=== PATIENT | male | born 1930 | race Caucasian/White ===

== ENCOUNTER → 2017-05-09 | Outpatient (CLI) | payer OTHER ==
[~2017-05-09] MED LIST: ASPI1TAB PO; COLA100C5 PO; DULC5TAB PO; FERR1TAB8 PO; FURO40TA2 PO; GARL500C5 PO; GLUC500T53 PO; LISI-542 PO; MIDO5TA PO; MIRA3350 PO; PANT40TA2 PO; SIMV20TA2 PO; SPIR25TA2 PO; VITA500T PO; VITMTA PO; XARE10TA PO
--- NOTE | 2017-05-09 11:46 | REP ---
CHEST, TWO VIEWS: HISTORY: Shortness of breath. COMPARISON: 05/01/2017. Patchy density is present in the lower lobes consistent with bibasilar infiltrates unchanged compared to the previous study. A small right pleural effusion is present unchanged compared to the previous study. The cardiac silhouette is enlarged. The pulmonary vasculature is normal in appearance. The bony structure is intact. IMPRESSION: 1. Bibasilar infiltrates unchanged compared to the previous study. 2. Small right pleural effusion unchanged compared to the previous study. Signed by Rashaad Hoff MD 05/09/2017 11:48 A
[2017-05-09 18:07] LABS: CALCIUM LEVEL 8.6 MG/DL (8.8-10.2); CREATININE FOR GFR 3.52 MG/DL (0.70-1.30); GLOMERULAR FILTRATION RATE 17.7 (>35); POTASSIUM SERUM 4.2 MEQ/L (3.5-5.1)
[2017-05-09 18:35] LABS: ADD MANUAL DIFFER YES; MEAN CORPUSCULAR HEMOGLOBIN 25.5 pg (27.0-33.0); MEAN CORPUSCULAR HGB CONC 29.7 g/dl (32.0-36.5); MEAN CORPUSCULAR VOLUME 85.9 fl (80.0-96.0); PLATELET COUNT, AUTOMATED 237 k/mm3 (150-450); RED CELL DISTRIBUTION WIDTH 17.6 % (11.5-14.5); WHITE BLOOD COUNT 6.5 K/mm3 (4.0-10.0)
[2017-05-09 22:06] LABS: EOSINOPHILS 2 % (0-5)
[2017-05-09 22:10] LABS: ANISOCYTOSIS 2+; HYPOCHROMASIA 1+; POLYCHROMASIA 1+; SCHISTOCYTES 1+; TARGET CELLS 1+
== END ==
LOC: M WUC 10:53
PROVIDERS: ATTEND Nurse Practitioner Family
DX: R06.02 Shortness of breath (principal); D64.9 Anemia, unspecified

== ENCOUNTER 2017-05-10 12:41 | Inpatient (IN) | payer OTHER ==
[~2017-05-10] VITALS: Ht 175.3 cm; Wt 80.4 kg
[2017-05-10] MEDS ORDERED: SIMV20TA2 PO (12:53)
[2017-05-10] MEDS ORDERED: LISI-542 PO (12:53)
[2017-05-10] MEDS ORDERED: XARE10TA PO (12:53)
[2017-05-10] MEDS ORDERED: FURO40TA2 PO (12:53)
[2017-05-10] MEDS ORDERED: PANT40TA2 PO (12:53)
[2017-05-10] MEDS ORDERED: SPIR25TA2 PO (12:53)
[2017-05-10 14:27] LABS: BASO % 0.4 % (0.0-1.0); EOS % 0.8 % (0.0-3.0); LARGE UNSTAINED CELL # 0.2 K/mm3 (0.0-0.4); LARGE UNSTAINED CELL % 3.8 % (0.0-4.0); LYMPH # 0.6 K/mm3 (1.5-4.5); LYMPH % 11.2 % (24.0-44.0); MEAN CORPUSCULAR HEMOGLOBIN 26.5 pg (27.0-33.0); MEAN CORPUSCULAR VOLUME 82.8 fl (80.0-96.0); MONO # 0.5 K/mm3 (0.0-0.8); MONO % 8.4 % (0.0-5.0); NEUTROPHILS % 75.4 % (36.0-66.0); PLATELET COUNT, AUTOMATED 195 k/mm3 (150-450); RED CELL DISTRIBUTION WIDTH 17.8 % (11.5-14.5); WHITE BLOOD COUNT 5.3 K/mm3 (4.0-10.0)
[2017-05-10 14:33] LABS: INR 2.48
[2017-05-10 14:40] LABS: ALBUMIN 2.9 GM/DL (3.2-5.2); ALBUMIN/GLOBULIN RATIO 0.74 (1.00-1.93); BILIRUBIN,DIRECT 0.6 MG/DL (0.0-0.2); BILIRUBIN,TOTAL 1.2 MG/DL (0.2-1.0); CALCIUM LEVEL 8.9 MG/DL (8.8-10.2); CREATININE FOR GFR 3.67 MG/DL (0.70-1.30); GLOMERULAR FILTRATION RATE 16.9 (>35); POTASSIUM SERUM 4.7 MEQ/L (3.5-5.1); TOTAL PROTEIN 6.8 GM/DL (6.4-8.2)
--- NOTE | 2017-05-10 15:12 | REP ---
Chest x-ray: Two views. History: Weakness. Comparison study May 09, 2017. Findings: The patient is status post prior median sternotomy. Cardiomegaly is again observed, unchanged. There is evidence of right pleural effusion. Pulmonary vasculature is indistinct and somewhat congested. Interstitial markings are a little prominent. Impression: CHF pattern with small right effusion and some interstitial edema and vascular congestion suspected. Signed by Antony Atkins MD 05/10/2017 06:21 P
[2017-05-10] MEDS ORDERED: ASPI1TAB PO (15:31)
[2017-05-10] MEDS ORDERED: GLUC500T53 PO (15:31)
[2017-05-10] MEDS ORDERED: VITMTA PO (15:31)
[2017-05-10] MEDS ORDERED: GARL500C5 PO (15:31)
--- NOTE | 2017-05-10 15:52 | HPEPDOC ---
Medical History and Physical Date of Admission 05/10/17 History and Physical ATTENDING: Dr. Campos PCP: Dr Phillips Mba Intern. Dr Gross. CC: weakness. Was referred to ED as per PCP for abnormal labs. HPI: 86 yo M with a past medical history significant for CAD, CABG, CHF, hypertension, chronic atrial fibrillation on Xarelto who states he has been feeling more weak recently. He was seen by his PCP yesterday and called this morning and referred to the emergency Department related to abnormal labs. He also reports in the past week his diuretics have been adjusted related to increased lower extremity edema. The patient states that he was taking Lasix 20 mg and torsemide 20 mg daily. He states he does not notice any improvement in his edema. Otherwise he states he has been feeling well. He denies any hematuria , melena, hematochezia. Denies any fevers, chills, weakness, fatigue, BALLESTEROS, CP, SOB, cough, palpitations, abdominal pain, N/V/D or changes in bowel or bladder habits. Upon presentation to the hospital the patient was found to have GI bleeding/ anemia, thus the hospitalist team was consulted. PMHx: CAD/CABG/valve surgery CHF. per pt TTE previously at Cardiology. 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 Children: Alive, well Unexpected deaths due to medical reasons: None. ROS: As noted in HPI, otherwise 11pt ROS of systems reviewed and unremarkable. PE: GEN: 86 yo M, appears stated age. Well-nourished, well developed. No acute distress. Alert and oriented x 3. Pleasant, interactive. HEENT: Normocephalic, atraumatic. Pupils are equal, round, and reactive to light. Extraocular movements are intact. No nystagmus appreciated. Sclera are nonicteric. Conjunctiva without injection. Nose midline. Nasal turbinates without bogginess. EACs both patent BL. TMs both visualized and george with good cone of light, no bulging or erythema. No facial asymmetry. Moist mucous membranes. Dentition fair. Pharynx pink and moist, no cobblestoning. Neck supple , trachea midline. No lymphadenopathy or thyromegaly appreciated. CHEST: Regular rate and rhythm, +S1, +S2 LUNGS: Clear to auscultation bilaterally. No wheezes, rales, or rhonchi. Breathing appears symmetric and easy. Patient is speaking in full sentences. No accessory muscle use. ABD: Round, soft, non-tender, non-distended. +Bowel sounds throughout. No rebound or guarding. No costovertebral angle tenderness. EXT: 2 mm of ankle/pretibial edema noted bilaterally. SKIN: [place], dry, warm. Capillary refill <2sec. No rashes. NEURO: Alert and oriented x 3. Cranial nerves III-XII are intact. No focal deficits appreciated. CXR: CHF pattern with small right effusion and some interstitial edema and vascular congestion suspected. EKG: Atrial fibrillation, 64 bpm, RVH, ST-T wave abnormality. UA pending BNP 807 Stool OB pos in ED A&P: 86 yo M with a past medical history significant for CAD, CABG, CHF, hypertension, chronic atrial fibrillation on Xarelto who states he has been feeling more weak recently. He was seen by his PCP yesterday and called this morning and referred to the emergency Department related to abnormal labs. 1. The patient will be admitted to PCU for at least [address] Campos 's service. Patient is discussed with Dr. Carlisle. Anemia/GI bleeding. Consent for blood products is on chart. PRBC 2 units ordered in ED. Monitor CBC every 8. Patient states he has not previously had any scoping procedures. Depending on status/ability to maintain stable Hgb possibly consider outpt colonoscopy vs inpt Surgical Clt/scope. Clear liquids for now. 2. CHF/history of edema lower extremities. BNP is noted to be 807. Chest x-ray as noted above. IV Lasix ordered between units PRBC. Monitor. I/O. Daily wt. 3. ARF on CKD3. Serum creatinine is noted to be 3.67. Baseline is noted to be 1.3-1.4. Hold ACEI, Hold PO diuretics for now. 4. CAD/CABG/history of valve surgery. No other additional information is available at this time. Requested copy of records of [facility] including TTE. Continue statin. ASA on hold. Serial CIP/troponin. 5. Chronic atrial fibrillation. Temporarily hold Xarelto. Rate controlled. 6. Hypertension. Hold lisinopril. BP is noted to be 114/54. 7. GERD. Continue Protonix. 8. Hyperlipidemia. Continue Zocor. DVT prophylaxis. SCD/TEDS The patient is a full code. Vital Signs Vital Signs Date Time Temp Pulse Resp B/P (MAP) Pulse Ox O2 Delivery O2 Flow Rate FiO2 05/10/17 12:46 98.0 64 18 114/54 (74) 91 Room Air Laboratory Data Labs 24H Laboratory Tests 2 05/10/17 14:12: White Blood Count 5.3, Red Blood Count 3.13L, Hemoglobin 8.3L, Hematocrit 26.0L , Mean Corpuscular Volume 82.8, Mean Corpuscular Hemoglobin 26.5L, Mean Corpuscular Hemoglobin Concent 32.0, Red Cell Distribution Width 17.8H, Platelet Count 195, Neutrophils (%) (Auto) 75.4H, Lymphocytes (%) (Auto) 11.2L, Monocytes (%) (Auto) 8.4H, Eosinophils (%) (Auto) 0.8, Basophils (%) (Auto) 0.4 , Neutrophils # (Auto) 4.0, Lymphocytes # (Auto) 0.6L, Monocytes # (Auto) 0.5, Eosinophils # (Auto) 0.0, Basophils # (Auto) 0.0, Large Unclassified Cells % 3.8 , Large Unclassified Cells # 0.2, Prothrombin Time 27.8H, Prothromb Time International Ratio 2.48, Anion Gap 8, Glomerular Filtration Rate 16.9L, Calcium Level 8.9, Aspartate Amino Transf (AST/SGOT) 24, Alanine Aminotransferase (ALT/SGPT) 14, Alkaline Phosphatase 111, Total Bilirubin 1.2H, Direct Bilirubin 0.6H, Total Creatine Kinase 62, Creatine Kinase MB 2.1, Creatine Kinase MB Relative Index 3.38, Troponin I 0.04, B-Type Natriuretic Peptide 807H, Total Protein 6.8, Albumin 2.9L, Albumin/Globulin Ratio 0.74L, Thyroid Stimulating Hormone (TSH) 0.980 CBC/BMP Laboratory Tests 05/10/17 14:12 Red Blood Count 3.13 L, Mean Corpuscular Volume 82.8, Mean Corpuscular Hemoglobin 26.5 L, Mean Corpuscular Hemoglobin Concent 32.0, Red Cell Distribution Width 17.8 H, Neutrophils (%) (Auto) 75.4 H, Lymphocytes (%) (Auto ) 11.2 L, Monocytes (%) (Auto) 8.4 H, Eosinophils (%) (Auto) 0.8, Basophils (%) (Auto) 0.4, Neutrophils # (Auto) 4.0, Lymphocytes # (Auto) 0.6 L, Monocytes # ( Auto) 0.5, Eosinophils # (Auto) 0.0, Basophils # (Auto) 0.0 Home Medications Scheduled Aspirin (Aspirin 81) 81 Mg Tab, 81 MG PO DAILY Furosemide (Furosemide) 40 Mg Tab, 40 MG PO DAILY Garlic (Garlic) 500 Mg Cap, 500 MG PO DAILY Glucosamine Hydrochloride (Glucosamine) 500 Mg Tab, 500 MG PO DAILY Lisinopril (Lisinopril) 5 Mg Tab, 5 MG PO DAILY Multivitamins *[facility] STOCKED* (Thera M Plus *[facility] STOCKED*) 1 Tab Tab, 1 TAB PO DAILY Pantoprazole Sodium (Pantoprazole Sodium) 40 Mg Tab, 40 MG PO DAILY Rivaroxaban (Xarelto) 10 Mg Tab, 10 MG PO QHS Simvastatin (Simvastatin) 20 Mg Tab, 20 MG PO QHS Spironolactone (Spironolactone) 25 Mg Tab, 12.5 MG PO DAILY Allergies Coded Allergies: No Known Allergies (Unverified , 05/10/17) Nancy Reyes May 10, 2017 15:52
[2017-05-10 16:25] LABS: RETIC HEMOGLOBIN CONTENT CHr 25.3 PG (24-36); RETICULOCYTE ABSOLUTE ADVIA212 79 x10(9)/L (17-77)
[2017-05-10 16:27] LABS: REASON FOR REVIEW COMPREHENSIVE REVIEW
[2017-05-10 16:35] LABS: PERCENT SATURATION 9.2 % (19.7-37.4)
[2017-05-10] MEDS ORDERED: FUROSEMIDE 20 MG/2 ML VIAL (J1940) IV ONE (17:00)
[2017-05-10 21:20] VITALS: BP 117/67
[2017-05-10 21:45] LABS: MEAN CORPUSCULAR HEMOGLOBIN 26.9 pg (27.0-33.0); MEAN CORPUSCULAR HGB CONC 31.8 g/dl (32.0-36.5); MEAN CORPUSCULAR VOLUME 84.7 fl (80.0-96.0); RED CELL DISTRIBUTION WIDTH 17.5 % (11.5-14.5); WHITE BLOOD COUNT 6.4 K/mm3 (4.0-10.0)
--- NOTE | 2017-05-10 21:58 | ECGEPIP ---
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
[2017-05-10] MEDS: SIMVASTATIN 20 MG TAB PO SCH (22:15)
[2017-05-10] MEDS ORDERED: SLF 3 ML SYR IV PRN (22:15)
[2017-05-10] MEDS: SLF 3 ML SYR IV SCH (22:15)
[2017-05-10 23:59] VITALS: BP 130/69
[2017-05-11] VITALS (7 sets, daily range): BP systolic 88–124; BP diastolic 52–82
[2017-05-11 03:01] LABS: MEAN CORPUSCULAR HEMOGLOBIN 26.2 pg (27.0-33.0); MEAN CORPUSCULAR HGB CONC 30.7 g/dl (32.0-36.5); MEAN CORPUSCULAR VOLUME 85.1 fl (80.0-96.0); RED CELL DISTRIBUTION WIDTH 17.5 % (11.5-14.5); WHITE BLOOD COUNT 6.9 K/mm3 (4.0-10.0)
[2017-05-11 03:25] LABS: ALBUMIN 2.9 GM/DL (3.2-5.2); ALBUMIN/GLOBULIN RATIO 0.69 (1.00-1.93); BILIRUBIN,TOTAL 2.4 MG/DL (0.2-1.0); CALCIUM LEVEL 8.8 MG/DL (8.8-10.2); CREATININE FOR GFR 3.21 MG/DL (0.70-1.30); GLOMERULAR FILTRATION RATE 19.7 (>35); POTASSIUM SERUM 4.4 MEQ/L (3.5-5.1); TOTAL PROTEIN 7.1 GM/DL (6.4-8.2)
--- NOTE | 2017-05-11 09:08 | REP ---
Urinary tract sonography: History: Acute on chronic kidney disease. Findings: Scanning at the level of the urinary bladder shows that it is largely obscured by abdominal gas and only partially filled. Renal cortical echogenicity pattern is normal and renal contours are smooth. The right kidney measures 11.2 x 4.9 x 5.0 cm. Left renal dimensions are 11.1 x 6.5 x 6.2 cm. There is a peripheral cyst projecting from the lower pole of the left kidney measuring 2.3 x 3.0 x 2.7 cm. A small septated cyst is seen in the lower pole of the right kidney measuring 1.1 x 1.4 x 1.7 cm. No mass or hydronephrosis is seen on either side. No calculus is observed. Impression: There is a small cyst in each kidney. No other morphologic abnormality. Signed by Antony Atkins MD 05/11/2017 09:34 A
--- NOTE | 2017-05-11 09:49 | REP ---
CHEST X-RAY: Two views. HISTORY: Congestive heart failure. COMPARISON STUDY: May 10, 2017. FINDINGS: EKG monitoring electrodes overlie the chest. The patient is status post median sternotomy and right heart valve replacement. Small right pleural effusion is again noted essentially unchanged from yesterday's radiograph. Pulmonary vasculature remains congested and cephalized. No new infiltrate. IMPRESSION: Findings essentially unchanged with right pleural effusion and cardiomegaly and cephalization consistent with some degree of CHF. Signed by Antony Atkins MD 05/11/2017 10:19 A
[2017-05-11] MEDS ORDERED: FUROSEMIDE 40 MG/4 ML VIAL (J1940) IV ONE (10:00)
[2017-05-11] MEDS: PANTOPRAZOLE 40MG TAB (PROTONIX) PO SCH (10:04)
[2017-05-11 10:27] LABS: MEAN CORPUSCULAR HEMOGLOBIN 26.9 pg (27.0-33.0); MEAN CORPUSCULAR HGB CONC 31.3 g/dl (32.0-36.5); MEAN CORPUSCULAR VOLUME 85.9 fl (80.0-96.0); RED CELL DISTRIBUTION WIDTH 17.7 % (11.5-14.5); WHITE BLOOD COUNT 6.9 K/mm3 (4.0-10.0)
[2017-05-11 14:59] LABS: MEAN CORPUSCULAR HGB CONC 31.6 g/dl (32.0-36.5); MEAN CORPUSCULAR VOLUME 85.4 fl (80.0-96.0); RED CELL DISTRIBUTION WIDTH 17.8 % (11.5-14.5); WHITE BLOOD COUNT 6.6 K/mm3 (4.0-10.0)
[2017-05-11] MEDS: SLF 3 ML SYR IV SCH ×2 (16:12→21:03)
[2017-05-11 20:13] LABS: MEAN CORPUSCULAR HEMOGLOBIN 26.8 pg (27.0-33.0); MEAN CORPUSCULAR HGB CONC 31.5 g/dl (32.0-36.5); MEAN CORPUSCULAR VOLUME 85.3 fl (80.0-96.0); RED CELL DISTRIBUTION WIDTH 17.9 % (11.5-14.5); WHITE BLOOD COUNT 6.6 K/mm3 (4.0-10.0)
[2017-05-11] MEDS: SIMVASTATIN 20 MG TAB PO SCH (21:03)
--- NOTE | 2017-05-11 21:24 | IPN ---
DATE: 05/11/2017 Patient is seen and examined at the bedside. Chart has been reviewed. Overnight patient did get transfused two units of red blood cells from 8.3 hemoglobin to 10.6 this morning. He denies any chest pain, pressure, tightness, lightheadedness or near syncope. Denies any shortness of breath. No other issues per nursing on telemetry aside from one episode of 30 heart rate lasting for a second while the patient was asleep. Current heart rate is 54-68. Currently on no beta blockade or calcium channel blockade. VITAL SIGNS: Temperature 97.9, pulse 60, respiratory rate 20, blood pressure 103/53, 95% on two liters nasal cannula. GENERALLY: Awake, alert, oriented, slow to respond but appropriate. No jugular venous distention. LUNGS: Diminished. HEART: S1, S2, irregularly irregular. ABDOMEN: Soft, nontender, nondistended. Normoactive bowel sounds. EXTREMITIES: No cyanosis or clubbing. Positive 2+ pitting edema. LABORATORY DATA: White count 6.9, hemoglobin 10, hematocrit 32, platelet count 205. Sodium 137, potassium 4.4, chloride 100, bicarbonate 29, BUN 62, creatinine 3.21, glucose of 118, total bilirubin is 2.4, BNP is 934, troponin is 0.06. Microbiology is pending. Renal ultrasound 05/11/2017, small cyst, no other morphologic abnormality. Chest x-ray 05/11/2017, findings consistent with cephalization and some degree of congestive heart failure (CHF) and right pleural effusion, cardiomegaly. ASSESSMENT AND PLAN: This is an 86-year-old male who has a history of atrial fibrillation, abnormal EKG with right ventricular hypertrophy (RVH), poor historian, admitted for symptomatic anemia, renal failure, acute on chronic stage IV, and congestive heart failure (CHF) exacerbation, unknown ejection fraction, with probable history of coronary artery disease (CAD) in the past. CURRENT ISSUES: Are as follows: 1. Symptomatic anemia. Patient apparently had heme positive stool in the past. Has received two units of red blood cell transfusion. Check hemoccult stool. Patient has not had a prior colonoscopy. Once stable, may need CT abdomen and pelvis to rule out colonic mass and outpatient followup with gastroenterology or general surgery for colonoscopy. If patient continues to drop hemoglobin and hematocrit, then will consider inpatient workup. Check iron studies and peripheral blood smear to rule out other etiology. 2. Acute on chronic kidney disease stage IV with congestive heart failure (CHF) exacerbation. At this time, veterinary technician, Dr. Chang, has been consulted. Defer to Dr. Chang for fluid management. Avoid nephrotoxins. Renally dose all medications. 3. Congestive heart failure (CHF). Unknown ejection fraction. Appears to be acutely decompensated with pleural effusions on x-ray as well as chronic lower extremity edema. Patient follows with Dr. Zamorano. Therefore, will obtain records from his advisory software engineer's office and resume his medications once his medication list has been obtained. 4. History of coronary artery disease (CAD), coronary artery bypass graft (CABG) and valvular surgery. Obtain records from his advisory software engineer. Fluid management for heart failure per nephrology. 5. Chronic atrial fibrillation. Appears to be rate controlled. 6. Hypertension, stable. 7. Hyperlipidemia. Obtain medication list. Check lipid panel. 8. Deep venous thrombosis (DVT) prophylaxis with compression stockings.
[2017-05-12] VITALS (7 sets, daily range): BP systolic 84–107; BP diastolic 42–62
[2017-05-12] MEDS: SLF 3 ML SYR IV SCH ×3 (04:36→20:48)
[2017-05-12 05:03] LABS: MEAN CORPUSCULAR HEMOGLOBIN 26.6 pg (27.0-33.0); MEAN CORPUSCULAR VOLUME 85.5 fl (80.0-96.0); RED CELL DISTRIBUTION WIDTH 17.9 % (11.5-14.5); WHITE BLOOD COUNT 5.8 K/mm3 (4.0-10.0)
[2017-05-12 05:06] LABS: ALBUMIN 2.8 GM/DL (3.2-5.2); ALBUMIN/GLOBULIN RATIO 0.78 (1.00-1.93); ALKALINE PHOSPHATASE 106 U/L (45-117); ALT/SGPT 13 U/L (12-78); ANION GAP 7 MEQ/L (8-16); AST/SGOT 20 U/L (15-37); BLOOD UREA NITROGEN 57 MG/DL (7-18); CALCIUM LEVEL 8.7 MG/DL (8.8-10.2); CARBON DIOXIDE LEVEL 29 MEQ/L (21-32); CHLORIDE LEVEL 102 MEQ/L (98-107); CREATININE FOR GFR 2.58 MG/DL (0.70-1.30); GLOMERULAR FILTRATION RATE 25.4 (>35); GLUCOSE, FASTING 107 MG/DL (83-110); POTASSIUM SERUM 4.4 MEQ/L (3.5-5.1); SODIUM LEVEL 138 MEQ/L (136-145); TOTAL PROTEIN 6.4 GM/DL (6.4-8.2)
[2017-05-12] MEDS: PANTOPRAZOLE 40MG TAB (PROTONIX) PO SCH (08:05)
[2017-05-12 09:34] LABS: MAGNESIUM LEVEL 2.5 MG/DL (1.8-2.4)
--- NOTE | 2017-05-12 10:48 | REP ---
PORTABLE CHEST: AP portable view of the chest is performed and compared to multiple prior exams, the most recent of which is 05/11/2017. Right pleural effusion is unchanged as are bibasilar infiltrates. There is cardiomegaly. The mediastinal silhouette is unchanged. IMPRESSION: Stable exam. Signed by Papito Sewell MD 05/12/2017 05:22 P
[2017-05-12] MEDS: MIDODRINE 5 MG TAB PO SCH ×2 (13:07→16:51)
[2017-05-12] MEDS: FERROUS SULFATE 325MG TAB PO SCH ×2 (13:07→20:48)
[2017-05-12] MEDS ORDERED: GASTROGRAFIN SOLUTION 30ML PO ONE (13:45)
[2017-05-12] MEDS ORDERED: GASTROGRAFIN SOLUTION 30ML (Q9963) PO ONE (14:15)
[2017-05-12 14:26] LABS: MEAN CORPUSCULAR HGB CONC 31.5 g/dl (32.0-36.5); MEAN CORPUSCULAR VOLUME 85.9 fl (80.0-96.0); RED CELL DISTRIBUTION WIDTH 17.9 % (11.5-14.5); WHITE BLOOD COUNT 6.9 K/mm3 (4.0-10.0)
--- NOTE | 2017-05-12 17:32 | REP ---
CT ABDOMEN AND PELVIS WITHOUT IV CONTRAST: CT abdomen and pelvis was performed without IV contrast but with oral contrast. Sagittal and coronal reconstruction images are performed. There is a moderate right pleural effusion with adjacent right lower lobe atelectasis/infiltrate. Liver demonstrates no gross mass. There are gallstones in the gallbladder. No definite pericholecystic edema is seen. Spleen, adrenals, and pancreas are grossly unremarkable. Right kidney demonstrates a cyst in the lower pole and left kidney also demonstrates a cyst in the lower pole, with a tiny subcentimeter hyperdense cyst in the upper pole of the left kidney. There is no renal calculus and no hydroureteronephrosis. There are moderate atherosclerotic calcifications of a the abdominal aorta without aneurysm. No adenopathy is seen. No free air or free fluid is seen. Diffuse colonic diverticulosis is present without evidence of acute diverticulitis. The appendix is not inflamed. Hernia is noted in the anterior abdominal wall of the left lower quadrant containing nonobstructed bowel. There is wide aperture of this hernia. There is a small right inguinal hernia containing fat. Urinary bladder is mildly distended and grossly unremarkable. There are degenerative changes of the spine. IMPRESSION: Moderate right pleural effusion with adjacent right lower lobe atelectasis/infiltrate. Gallstones in the gallbladder, which does not definitely appear to be inflamed. Bilateral renal cysts without hydronephrosis. No bowel wall thickening or inflammation seen. No free air, free fluid or adenopathy. Right inguinal hernia contains fat. Left lower quadrant anterior wall hernia contains nonobstructed bowel. Signed by Papito Sewell MD 05/15/2017 01:26 P
[2017-05-12] MEDS: SIMVASTATIN 20 MG TAB PO SCH (20:48)
--- NOTE | 2017-05-12 21:08 | IPN ---
DATE: 05/12/2017 Mr. Watson was seen yesterday due to congestive heart failure, acute renal failure and hypotension. A repeat chest x-ray did show persistent pleural effusion and congestive heart failure while renal ultrasound done yesterday did not show any evidence of hydronephrosis. He was given one dose of Lasix 40 mg intravenously and he responded reasonably well. He denies any dyspnea, chest pain, nausea, vomiting, fever or chills. PHYSICAL EXAMINATION: Temperature 98 degrees Fahrenheit, heart rate 60 per minute and respiratory rate 22 per minute. Blood pressure 84/42 mmHg and oxygen saturation 93% on room air. Intake and output records from yesterday showed total intake 2160 and output 2250 mL. Today's urine output so far is 550 mL with a negative balance of 370 mL. His head is atraumatic. Neck is supple and jugular venous distention (JVD) is only mildly elevated. Heart sounds are regular and lungs with diminished breath sounds at bases and few basilar rales. Abdomen: Soft and nontender and without palpable organomegaly. Bowel sounds are normal. Extremities have no cyanosis or clubbing. Skin has no rash or ulcers. Neurologically, he is awake, alert and oriented times three. Today's labs show WBC count 5.8, hemoglobin 10.1 and hematocrit 32.4. Platelets 183. Sodium 138 and potassium 4.4. BUN 57 and creatinine 2.58. A BNP level is down to 846. PROBLEM #1: Acute renal failure superimposed on chronic kidney disease. Improvement in kidney function is noted since yesterday. The patient has no uremic symptoms and electrolytes are within normal range. No intervention is indicated from a renal standpoint at this point. PROBLEM #2: Hypotension. Blood pressure was low; however, it is worse today. He has been off antihypertensives and diuretics. I will start him on midodrine 5 mg three times a day This seems to be a chronic issue. PROBLEM #3: Congestive heart failure. His volume status remains decompensated; however, he did respond well to Lasix given yesterday. His blood pressure is low, and he is not likely to tolerate further diuresis at this point. Will hold on further diuresis as the patient is quite comfortable and oxygenating well. PROBLEM #4: Anemia. His anemia is stable and no intervention is indicated.
[2017-05-13] VITALS (8 sets, daily range): BP systolic 92–126; BP diastolic 48–62
--- NOTE | 2017-05-13 01:33 | CR ---
DATE OF CONSULTATION: 05/11/2017 Nephrology consultation for Larissa Campos MD. REASON FOR CONSULTATION: Acute renal failure and congestive heart failure. HISTORY OF PRESENT ILLNESS: Mr. Watson is an 86-year-old gentleman who is admitted to [facility] due to abnormal labs as he was sent by his primary physician. Apparently, he has known history of chronic kidney disease with baseline creatinine of 1.3 mg/dl. The patient also has history of chronic atrial fibrillation and has been on anticoagulation. He was found to be anemic with hemoglobin of 8.4 on admission. His creatinine is noticed to be about 3.0 and nephrology consultation was requested. The patient was seen in the morning of 05/11. PAST MEDICAL AND SURGICAL HISTORY: Significant for: 1. History of coronary artery disease, status post coronary artery bypass graft (CABG). 2. History of hypertension. 3. History of congestive heart failure (CHF). 4. History of chronic atrial fibrillation. 5. History of hyperlipidemia. 6. History of gastroesophageal reflux disease. 7. History of stage III of chronic kidney disease. PAST SURGICAL HISTORY: Significant for CABG and valve surgery. MEDICATIONS: His home medications included: - aspirin 81 mg daily - Lasix 40 mg daily - garlic 500 mg daily - lisinopril 5 mg daily - multivitamin one tablet daily - Protonix 40 mg daily - Xarelto 10 mg daily - simvastatin 20 mg daily - spironolactone 12.5 mg daily ALLERGIES: The patient has no known drug allergies. PERSONAL AND SOCIAL HISTORY: The patient is and lives with his family. He quit smoking more than 45 years ago. He has history of one alcoholic drink daily, but no drug use. Family history is negative for end-stage renal disease or any other hereditary kidney problems. He does have history of coronary artery disease, diabetes and cardiac disease in his family. REVIEW OF SYSTEMS: The patient denies any fever or chills. Ears, nose and throat are unremarkable. Cardiovascular system significant for chronic atrial fibrillation and congestive heart failure. He denies any chest pain at present. Respiratory system is negative for cough or hemoptysis. Gastrointestinal (GI) system is negative for nausea, vomiting or diarrhea. Genitourinary () system is negative for dysuria or hematuria. Endocrine system is significant for hyperlipidemia and no history of diabetes. Psychosocial system negative for depression or anxiety. Neurological system negative for seizures or stroke. Hematological system is significant for chronic anticoagulation and anemia. Musculoskeletal system is negative for any significant arthritis. He denies using nonsteroidal antiinflammatory drugs (NSAIDs). Skin is negative for rash or ulcers. PHYSICAL EXAMINATION: The patient is awake and alert at the time of my visit. Temperature 97.9 degrees Fahrenheit, heart rate 60 per minute and respiratory rate 20 per minute. Blood pressure 99/53 mmHg and oxygen saturation 95% on 2 liters oxygen. Head is atraumatic. Neck is supple and the jugular venous distention (JVD) is mildly elevated. Pupils are equal and reactive to light and sclera is anicteric. Ears, nose and throat are unremarkable. Heart exam reveals regular S1 and S2. Lungs with slightly diminished breath sounds and few basilar rales bilaterally. Abdomen soft and nontender and without palpable organomegaly. Bowel sounds are normal. Extremities have no cyanosis or clubbing. Skin has no rash or ulcers. Neurologically, he is awake, alert and oriented times three. LABORATORY DATA: On admission, hemoglobin was 8.3 and hematocrit 26.0. WBC count 5.3 and platelets 195. Sodium 136, potassium 4.7. BUN 67 and creatinine 3.67 on admission. A BNP level was 807. In the morning of 05/11, BUN 62 and creatinine 3.21. Electrolytes were the same. Total bilirubin 2.4. A BNP level 934. The patient received 2 units of packed RBCs and hemoglobin has improved to 10.1 and hematocrit 31.8. Chest x-ray done on admission showed congestive heart failure (CHF) with small right pleural effusion. PROBLEMS: 1. Acute renal failure superimposed on chronic kidney disease. Renal ultrasound has been done and I reviewed it independently. There is no evidence of hydronephrosis. Acute renal failure is probably related to hypotension while he was on low-dose angiotensin-converting enzyme (HARVEY) inhibitor at home. I agree with stopping his diuretic and HARVEY inhibitor for now. Renal function will be monitored closely. He does not have any evidence of acute glomerulonephritis as his urinalysis is completely negative for blood or protein. 2. Congestive heart failure. He does have decompensated volume status. His blood pressure has been low. We will give him a trial of Lasix 40 mg intravenously and monitor his response. We will have to use diuretic on as-needed basis due to his hypotension. 3. Anemia. Probably the patient had blood loss related to anticoagulation. His anemia has improved following transfusion. Iron level was 42 and saturation was 9.2%. He most likely has chronic iron deficiency and I suggest to treat him with iron supplement. Ferrous sulfate 325 mg twice a day is being started. I thank you for involving me in the care of Mr. Watson. I will follow him along with you.
[2017-05-13] MEDS: SLF 3 ML SYR IV SCH ×3 (05:02→22:00)
[2017-05-13 05:44] LABS: MEAN CORPUSCULAR HEMOGLOBIN 27.3 pg (27.0-33.0); MEAN CORPUSCULAR HGB CONC 31.6 g/dl (32.0-36.5); MEAN CORPUSCULAR VOLUME 86.3 fl (80.0-96.0); RED CELL DISTRIBUTION WIDTH 17.9 % (11.5-14.5); WHITE BLOOD COUNT 5.8 K/mm3 (4.0-10.0)
[2017-05-13 06:02] LABS: ALBUMIN 2.7 GM/DL (3.2-5.2); ALBUMIN/GLOBULIN RATIO 0.69 (1.00-1.93); BILIRUBIN,TOTAL 1.8 MG/DL (0.2-1.0); CALCIUM LEVEL 8.9 MG/DL (8.8-10.2); CREATININE FOR GFR 2.11 MG/DL (0.70-1.30); POTASSIUM SERUM 4.1 MEQ/L (3.5-5.1); TOTAL PROTEIN 6.6 GM/DL (6.4-8.2)
--- NOTE | 2017-05-13 08:19 | REP ---
PORTABLE CHEST, ONE VIEW: HISTORY: Shortness of breath. COMPARISON: 05/12/2017 Increased density is present in the lower lobes consistent with bibasilar infiltrates unchanged compared to the previous study. A small right pleural effusion is present, unchanged compared to the previous study. The cardiac silhouette is enlarged. The pulmonary vasculature is normal in appearance. IMPRESSION: 1. Bibasilar infiltrates unchanged compared to the previous study. 2. Small right pleural effusion, unchanged compared to the previous study. Signed by Rashaad Hoff MD 05/13/2017 08:27 A
[2017-05-13] MEDS: FERROUS SULFATE 325MG TAB PO SCH ×2 (08:25→21:04)
[2017-05-13] MEDS: PANTOPRAZOLE 40MG TAB (PROTONIX) PO SCH (08:25)
[2017-05-13] MEDS: DOCUSATE SODIUM 100 MG CAP PO SCH (08:25)
[2017-05-13] MEDS: MIDODRINE 5 MG TAB PO SCH ×3 (08:25→15:30)
[2017-05-13] MEDS: ASCORBIC ACID 500 MG TAB PO SCH (08:25)
[2017-05-13] MEDS ORDERED: FUROSEMIDE 40 MG/4 ML VIAL (J1940) IV ONE (09:45)
[2017-05-13] MEDS: ASPIRIN 81 MG ENTERIC TAB PO SCH (12:28)
--- NOTE | 2017-05-13 17:18 | IPN ---
DATE: 05/13/2017 SUBJECTIVE: Mr. Watson is seen this morning on his bedside. He is feeling well and denies any nausea, vomiting, abdominal pain, dyspnea or chest pain. He has no fever or chills. He was started on midodrine yesterday due to persistent hypotension. He also underwent CT scan of abdomen and pelvis which did not show any evidence of acute infection or fluid collection. He does have gallstones but no evidence of acute cholecystitis. Chest x-ray did show bibasilar infiltrates and small right pleural effusion. PHYSICAL EXAMINATION: VITAL SIGNS: Temperature 97.8 degrees Fahrenheit, heart rate 70 per minute and respiratory rate 20 per minute. Blood pressure 126/56 mmHg and oxygen saturation 91% on room air. Intake and output records from yesterday showed total intake 840 and output 1800 with a negative balance of 960. HEAD/NECK: His head is atraumatic. Neck is supple and without jugular venous distention (JVD) or thyroid enlargement. Ears, nose and throat are unremarkable. CARDIORESPIRATORY: Heart sounds are regular and lungs sound slightly diminished at right base but otherwise clear. ABDOMEN: Soft and nontender and without a palpable organomegaly. EXTREMITIES: Without cyanosis or clubbing. SKIN: Without any rash or ulcers. NEUROLOGIC: He is awake, alert and oriented times three. LABORATORY DATA: Today's labs show WBC count 5.8, hemoglobin 10.0, hematocrit 31.7. Platelets 189. Sodium 137 and potassium 4.1. BUN 47 and creatinine 2.11. A BNP level is down to 801. PROBLEMS: 1. Acute renal failure superimposed on chronic kidney disease. The patient continues to improve every day and he has no uremic symptoms. At this point, electrolytes are within normal range and we will recheck his renal profile tomorrow. 2. Congestive heart failure and right-sided pleural effusion. The patient has been responding to diuretics. Will give him one more dose of Lasix 40 mg intravenously today. I am pleased with negative fluid balance. 3. Hypotension. Blood pressure has improved with midodrine 5 mg three times a day, which will be continued. He has been off his antihypertensives. There is no evidence of acute infection at this point. 4. Anemia. He did have anemia on admission which has been stable since he was transfused. At this point, no intervention is indicated. His iron level was slightly low and he should continue with oral iron supplement. Ferrous sulfate 325 mg twice a day has been started.
--- NOTE | 2017-05-13 19:02 | ECGEPIP ---
Stationary ECG Study [facility] Test Date: 2017-05-13 Pat Name: CAROLYNE MOSLEY Department: Room: [place] [address] Gender: M [employer]: : [id number] Requested By: RADHA Bauman Order Number: [id number] Reading MD: Michael Gross Measurements Intervals [place] Rate: 52 P: [place]: 0 QRS: 156 QRSD: 112 T: 224 QT: 475 QTc: 443 Interpretive Statements Underlying atrial fibrillation with somewhat slow ventricular response. Right axis deviation with low voltages, prominent R wave in V1 and persistent S waves in V5 and V6 in keeping with cor pulmonale/RVH. Diffuse ST/T-wave abnormalities Slightly slower heart rate than 05/10/17. Electronically Signed On 05-13-2017 19:02:28 EDT by Michael Gross
--- NOTE | 2017-05-13 20:16 | CR ---
DATE OF CONSULTATION: 05/13/2017 CARDIOLOGY CONSULTATION REFERRING PHYSICIAN: Dr. Larissa Campos. INDICATION: Bradyarrhythmia. HISTORY: This 86-year-old , father of three grown children, retired, resident of [place], is known to my cardiology practice since consultation 03/17/2014, with known ischemic, hypertensive, and pulmonary heart disease, complicated by abnormal EKG, chronic atrial fibrillation, mitral and tricuspid insufficiency. He underwent coronary artery bypass graft (CABG) times two with tricuspid valve repair 09/03/2015. Last echocardiogram in my office was 02/26/2016 and this showed normal left ventricular size, left ventricular (LV) wall thickness upper limits of normal, subtle septal wall motion abnormality, yet preserved global systolic function. Moderately dilated left atrium and right heart chambers sizes with at least moderate pulmonary hypertension. Inferior vena cava (IVC) was at least mild to moderately dilated with reduced respiratory collapse. There was moderate aortic valvular sclerosis with mild, slightly thickened mitral annulus with no inflow tract obstruction and mild mitral insufficiency and echogenic tricuspid annulus in keeping with recent tricuspid valve repair and annuloplasty ring with no inflow tract obstruction and mild tricuspid regurgitation. Last pharmacological stress heart scan 04/21/2016 showed no inducible no low-level stress/pharmacologically induced chest discomfort, EKG change or heart scan evidence of myocardial ischemia. LV size was normal with slightly flattened septum and measured left ventricular ejection fraction (LVEF) of 65%. Last seen in our office 02/28/2017, reporting ongoing ease of fatigue, relatively sedentary, walking only short distances. Was free of any further chest discomfort and denied shortness of breath. Remained unaware of his heart action and denied lightheadedness or dizziness. No embolic phenomenon or hemorrhagic complication on his chronic Xarelto therapy. At that time, he was on furosemide 80 mg daily, spironolactone 12.5 mg daily and lisinopril 5 mg daily, with heart rate averaging 68 beats per minute and sitting blood pressure 106/58. His weight was 189 pounds. His chest was clear, but neck veins remain slightly elevated, with 2+ pitting edema half of the way up both lower legs. EKG showed atrial fibrillation with slightly slow ventricular sponsor of 59 beats per minute, right axis deviation with incomplete right bundle branch block and ST/T-wave abnormalities. His axis shift and incomplete right bundle branch block were new from September 2015. Blood work at that time showed electrolyte balance with BUN at 29, creatinine 1.5, unchanged from a month earlier. No medication changes were made and the patient was scheduled for tentative followup appointment in six months. Early April,, patient was seen by his primary provider and had noticed some worsening shortness of breath and lower leg swelling. Chest x-ray showed a right pleural effusion. His diuretic therapy was adjusted and he had followup chest x-ray 05/09/2017, along with blood work and a followup appointment. His pedal edema and shortness of breath were somewhat improved. His chest x-ray was reported as showing cardiomegaly with normal pulmonary vasculature, with bibasilar infiltrates and small right pleural effusion that was unchanged from earlier this month. Blood work had shown evidence of anemia with hemoglobin 9, normal white blood cell count. Chemistry had shown a significant increase in BUN 261, with creatinine 3.5. In light of these findings, he was advised to come to [facility] emergency room for further evaluation and treatment. Initial vital signs showed a pulse rate of 64 beats per minute, blood pressure 114/54, respiratory rate of 18, oxygen saturation of 91 and he was afebrile. He was admitted by the hospitalist program and nephrology was consulted. His diuretic therapy was discontinued, along with his low dose of lisinopril. He was also given a blood transfusion and started on iron replacement therapy. An abdominal performed showing bilateral small renal cysts with no hydronephrosis or renal calculus. It again showed a moderate size right pleural effusion and atherosclerotic changes of the abdominal aorta. With these, which included the addition of midodrine 5 mg three times a day 05/12/2017, his hemoglobin increased to 10 and the BUN dropped from 67 to 47 today. Creatinine dropped from 3.7 to 2.1 today. He has continued to make urine. Lasix therapy prescribed by nephrology was discontinued earlier today. While on surveillance monitor, he has had underlying atrial fibrillation with a controlled to slightly slow ventricular response, especially while resting or sleeping. Rates as low as the mid 30s were observed while sleeping earlier this morning. He has also had some ectopy and occasional ventricular triplet. The patient himself has been free of any symptomatic arrhythmia and has been up to the bathroom without lightheadedness. Heart rate with activity appears to increase. Cardiology consultation was placed. CARDINAL CARDIAC SYMPTOMS: The patient has remained free of chest discomfort with his sedentary status. February become dyspneic with more vigorous activity, but his chief effort limiting symptom is fatigue. Has been free of any lateralizing neurological deficit on his oral anticoagulant therapy. Lower leg swelling persists. CORONARY RISK FACTORS: Male gender. Advanced age. Weight problem. History of longstanding hypertension. Prior hypercholesterolemia. Prior 20-year history of one pack per day smoking, quit 30 years ago. Family history of premature coronary heart disease. No history of diabetes or symptomatic carotid vascular disease. OTHER PAST KNOWN MEDICAL/SURGICAL HISTORY: Weight problem. Cor pulmonale. Transient cerebral ischemic attack December 2011, but atrial fibrillation only first documented February 2014. Some benign prostatic hypertrophy, chronic renal insufficiency. History of hip and low back arthralgia. REVIEW OF SYSTEMS: Denies any fever, chills or significant weight loss. Wears corrective lenses. Denies any current cough, hemoptysis or sputum production. Has a slightly reduced appetite, but no dysphagia. Denies dyspepsia, change in bowel habit or apparent gastrointestinal (GI) bleeding. Nocturia times one is chronic. Occasional headache. No history of neuropathy or vertigo. Ease of bruising with his anticoagulant therapy. All other systems review was negative. MEDICATIONS: At the time of his admission the patient had been taking: - lisinopril 5 mg daily - Lasix 40 mg daily - Xarelto 10 mg daily - spironolactone 12.5 mg daily - simvastatin 20 mg at bedtime - aspirin 81 mg daily - glucosamine chondroitin sulfate 500 mg daily - garlic tablets. CURRENT MEDICATIONS: Include: - Xarelto 10 mg daily - vitamin C 500 units daily - Colace 100 mg daily - aspirin 81 mg daily - ferrous sulfate 325 mg twice a day - Protonix 40 mg daily - midodrine 5 mg three times a day - simvastatin 20 mg at bedtime - diuretic placed on hold earlier today. ALLERGIES: None known. PHYSICAL EXAMINATION: CONSTITUTIONAL: Slightly overweight, barrel-chested elderly male appearing slightly lethargic/fatigued, sitting in the chair by his bed. Medium height. Slight pallor. VITAL SIGNS: Heart rate 56 bpm and irregular, blood pressure 108/45 sitting, respiratory rate 16 per minute. Oxygen saturation 93% on room air. Afebrile. Weight 177 pounds, height 69 inches, body mass index (BMI) 26.2. EYES: Slight conjunctival pallor, but no icterus, no petechiae. No xanthelasma. ENT/MOUTH: Edentulous with upper denture. Normal oral moisture. No central cyanosis. NECK: Trachea midline. Thyroid not enlarged. Jugular veins were visible approximately 8 cm above the sternal angle. RESPIRATORY: Slightly increased anteroposterior chest diameter with well-healed sternotomy incision. Reduced chest excursion. Has reduced air entry and dullness over the right base with few inspiratory rales left base. Slight prolongation of expiration, but no audible wheeze at this time. CARDIOVASCULAR: Apical impulse not palpable. Heart sounds somewhat distant and variable. Questionable increased P2 at the base. No audible gallops or rub. Has a soft systolic ejection murmur of variable intensity wall along the left sternal border and right base. Normal carotid upstroke, but variable volume related to his arrhythmia. No bruits. Upper extremity pulses were symmetrical and normal. Abdominal aorta was not palpable. Pedal pulses were not palpable due to his pedal edema. Has at least 1 mm pitting edema one-half up both lower legs and plus/minus over his sacrum. Few dilated superficial venules both lower legs. EXTREMITIES: No clubbing, peripheral cyanosis or splinter hemorrhages. GASTROINTESTINAL (GI): Soft, somewhat overweight abdomen with no palpable hepatosplenomegaly. Rectal examination not indicated. MUSCULOSKELETAL: Gait was not assessed at this time. No obvious joint deformities. Some proximal muscle weakness, but normal tone. SKIN: Slightly pale. Atrophic skin changes both lower legs. Senile keratosis, especially of his back. NEUROLOGIC/PSYCHOLOGICAL: Slightly depressed and fatigued, but gave a fair history. Eye, facial and extremity movements were symmetrical and normal. No abnormal movements. INVESTIGATIONS: Portable upright chest x-ray taken earlier today was reviewed independently and shows his obvious cardiomegaly with sternotomy wire sutures. Pulmonary vasculature did appear to be slightly more prominent than normal, with ongoing right pleural effusion. EKG earlier today showed underlying atrial fibrillation with slightly slow ventricular response averaging 52 bpm. Marked rightward axis with low limb voltages. Slightly prominent R wave in V1 in keeping with RVH. Diffuse ST/T-wave abnormalities more marked in the precordial leads. There did not appear to be a dramatic change than the slightly slower heart rate from our office tracing 02/28/2017. Echocardiogram reported separately shows left ventricular wall thickness upper limits of normal, with obvious septal wall motion abnormality attributed to right ventricular pressure overload, yet preserved global left ventricular systolic function. Left atrium was at least mild to moderately increased in size. There was some degenerative change of both his mitral and aortic valvular apparatus with only trace aortic and mild to moderate mitral insufficiency. Right heart chambers were at least moderately dilated and hypokinetic with Doppler evidence of severe pulmonary hypertension. His tricuspid annuloplasty ring was echogenic and at this time, he does not have tricuspid stenosis but at least a mild tricuspid insufficiency. His right atrium and inferior vena cava were moderately dilated with virtually absent respiratory collapse in keeping with central venous pressure of 15 - 20. IMPRESSION/PLAN: 1. Atrioventricular (AV) block (unspecified): For some time, we have been aware that he has a degree of AV arturo disease with controlled ventricular response atrial fibrillation. For the most part, when he is active, his rate is perfectly physiologically. However, while he has been in hospital at rest, intermittent slow rates as low as 33 beats per minute were documented earlier today. I have recommended simply continued monitoring for the time being. It is unlikely that a pacemaker will prolong his life, especially for asymptomatic bradycardia. This was explained quite frankly to the patient and his family, who appear to understand and agree at this time. 2. Atrial fibrillation: A longstanding problem documented in 2013, but likely responsible for his transient ischemic attack (TIA) in 2011. Ventricular response controlled, as mentioned above. On combination aspirin and low-dose Xarelto with his worsening renal function. Unfortunately, his hemoglobin did drop. Interestingly, his and MCV has remained normal. No iron studies show a mildly reduced serum ferritin level or serum iron of 42. His total iron binding capacity (TIBC) is only slightly elevated, but his ferritin level is significantly decreased at 19. Currently on iron replacement therapy. Protonix has been started to allow a safe continuation of his Xarelto and aspirin. Undoubtedly, his renal insufficiency is contributing to his anemia. 3. Heart failure (diastolic/chronic): Has had borderline left ventricular hypertrophy with preserved systolic function, but at least a mild to moderately dilated left atrium in keeping with left ventricular (LV) diastolic dysfunction of some chronicity. His echocardiogram performed earlier today shows his present mean left atrial pressure is normal. The primary etiology of his diastolic dysfunction is believed to be hypertension. 4. Pulmonary heart disease (chronic): Dating back to at least 2011, he has had evidence of at least moderate to moderately severe pulmonary hypertension. The precise etiology is uncertain, but attributed to his prior heavy smoking history and prior weight problem, possibly prior obstructive sleep apnea. Could not rule out prior pulmonary embolic events. At this point, he has at least moderately dilated right heart chambers, with ongoing severe pulmonary hypertension with pulmonary arterial systolic pressure believed to be approximately 70 mmHg. With his tricuspid valve annuloplasty, he does not have more than mild tricuspid insufficiency, but his inferior vena cava remains quite dilated, with absent respiratory collapse in keeping with elevated central venous pressure. Undoubtedly, this is perhaps his most serious cardiac problem without apparent "fix." With his observed elevation, I suspect this is contributing to his impaired cardiac performance to the greatest degree and places him at risk. I believe if hemodialysis was attempted, he may suffer cardiovascular collapse. I have spoken quite frankly with the patient and his regarding the severity of this condition and his guarded prognosis. They have already been talking about DO NOT RESUSCITATE and I discussed this further with them and, at their request, filled out the physician's portion of the Medical Orders for Life-Sustaining Treatment (MOLST) form for him. 5. 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 Has had some EKG repolarization abnormalities believed to be related to metabolic problems and relative hypotension. Of course, not a candidate for beta blockade and at this point, with his renal function and severe pulmonary hypertension, I believe vasodilator therapy would also be dangerous. Remains on simvastatin and aspirin. 6. Hypertensive heart disease (benign with heart failure): As mentioned above has had a longstanding history of systemic hypertension and echocardiographic evidence of left heart chamber changes and left ventricular (LV) diastolic dysfunction. In light of his severe pulmonary hypertension and reduced cardiac output, he has been relatively hypotensive and currently is receiving midodrine oral vasopressor therapy prescribed by Dr. Chang. This has improved his blood pressure and renal function. I believe he remains quite fragile, and as mentioned above, dialysis may be very hazardous. I will plan on following him closely with you and appreciate the opportunity to participate in his care. Best regards, Michael Gross MD [facility] Cc: Dr. Rashaad Phillips and Dr. Chang
[2017-05-13] MEDS: SIMVASTATIN 20 MG TAB PO SCH (21:03)
[2017-05-13] MEDS: RIVAROXABAN 10 MG TAB (XARELTO) PO SCH (21:04)
--- NOTE | 2017-05-13 21:52 | CR ---
DATE OF CONSULTATION: 05/11/2017 CONSULTATION REPORT FOR: Larissa Campos MD REASON FOR CONSULTATION: Is acute renal failure and congestive heart failure. HISTORY OF PRESENT ILLNESS: Mr. Watson is an 86-year-old gentleman who was admitted to [facility] last evening. He has known history of coronary artery disease with prior coronary artery bypass graft (CABG), chronic atrial fibrillation, congestive heart failure, hyperlipidemia and chronic kidney disease. Apparently he had abnormal labs due to which his primary care physician referred him to the emergency room for admission. The patient was found to be anemic with hemoglobin of 8.3. His creatinine was also up to about 3 while his baseline creatinine is reported at 1.4. Nephrology consultation was requested because of acute renal failure and need for diuretic as the patient did have congestive heart failure on his chest x-ray. The patient is seen this morning in progressive care unit. PAST MEDICAL AND SURGICAL HISTORY: Significant for: 1. Longstanding history of hypertension. 2. Hyperlipidemia. 3. Chronic atrial fibrillation. 4. History of congestive heart failure. 5. History of coronary artery disease, status post CABG. 6. History of valve surgery. 7. History of chronic kidney disease stage III. 8. History of gastroesophageal reflux disease. MEDICATIONS: His home medications include aspirin 81 mg daily, Lasix 40 mg daily, spironolactone 25 mg half a tablet daily, simvastatin 20 mg at bedtime, Xarelto 10 mg at bedtime, Protonix 40 mg daily, multivitamin one tablet daily, lisinopril 5 mg daily, garlic pills 500 mg daily and glucosamine 500 mg daily. ALLERGIES: The patient has no known drug allergies. PERSONAL AND SOCIAL HISTORY: The patient has no known history of alcohol or drug use. He stopped smoking about 45 years ago. FAMILY HISTORY: The patient has seven siblings for disease related to coronary artery disease, diabetes and leukemia. There is no family history for significant kidney disease. REVIEW OF SYSTEMS: The patient remains weak but denies any fever or chills. Ears, nose and throat are unremarkable. Cardiovascular system negative for dyspnea or chest pain. He does have history of chronic atrial fibrillation and has been on chronic anticoagulation. Gastrointestinal (GI) system is negative for nausea, vomiting or diarrhea. There is no history of rectal bleeding or black colored stools known. Genitourinary () system is negative for dysuria, hematuria or kidney stones. Endocrine system is significant for hyperlipidemia and no known history of diabetes. Psychosocial system is negative for depression or anxiety. Musculoskeletal system is negative for any significant arthritis. There is no history of NSAID use. Skin is negative for rash or ulcers. Neurological system is negative for seizures or stroke. PHYSICAL EXAMINATION: Elderly gentleman lying in the bed without any acute distress. Temperature is 97.9 degrees Fahrenheit, heart rate 60 per minute and respiratory rate 20 per minute. Blood pressure 103/53 mmHg and oxygen saturation 95% on 2 liters oxygen. Head is atraumatic. Neck is supple and without any thyroid enlargement. Neck veins are only mildly distended. Ears, nose and throat are unremarkable. Heart sounds are irregular in rhythm. Lungs with slightly diminished breath sounds but no significant wheezing or rales. Abdomen soft, nontender and without a palpable organomegaly. Bowel sounds are normal. Extremities have no cyanosis or clubbing. Skin has no rash or ulcers. Neurologically he is awake, alert and oriented times three. LABORATORY DATA: His admission labs yesterday show WBC count 5.3, hemoglobin 8.3 and hematocrit 26. His admission chemistry showed a BUN of 67 and creatinine 3.67. Today, sodium 137 and potassium 4.4. BUN 62 and creatinine 3.21. A BNP level was 807 yesterday and is up to 934 today. Total protein is 7.1 and albumin 2.9. Urinalysis negative for protein or blood. INR was 2.48 yesterday. The patient had a chest x-ray done yesterday on admission which showed CHF with small right pleural effusion and some interstitial edema. His renal ultrasound has also been done which is reviewed independently along with a chest x-ray. Right kidney is 11.2 cm and left kidney 11.1 cm without any hydronephrosis. There is a small cyst in each kidney. PROBLEMS: 1. Acute renal failure superimposed on chronic kidney disease. The patient does have stage III of kidney disease at baseline. He does not have any hydronephrosis on ultrasound. There is no history of any nephrotoxic medication use. At this point his kidney function has slightly improved since yesterday. Will continue to monitor without any intervention. There is no indication for dialysis. 2. Congestive heart failure. His volume status remains decompensated. At home he was taking Lasix and spironolactone. Will give him one dose of Lasix 40 mg intravenously and monitor his urine output. He will be placed on a fluid restriction of 1500 mL per day and 2 grams sodium diet. 3. Hypotension. Blood pressure remains somewhat soft. Will continue to hold his antihypertensive medications including angiotensin-converting enzyme (HARVEY) inhibitor. 4. Anemia. His anemia did improve following transfusion. He received 2 units of packed red blood cells (RBCs). At present he is stable and does not need any further intervention. Thank you for involving me in the care of Mr. Watson. I will follow him along with you.
--- NOTE | 2017-05-13 21:52 | IPN ---
DATE: 05/13/2017 SUBJECTIVE: The patient is seen and examined at the bedside. Chart has been reviewed. Per nursing, the patient has had bradycardic episodes with heart rate of 30, 35 and 37 on telemetry, while the patient has been sleeping. He has had blood pressure 92 to 95, increased about 107 on midodrine. He currently denies any chest pain, pressure, tightness. He is slightly short of breath this morning. Denies any dysuria, urgency, frequency, cough, palpitations, or lightheadedness. OBJECTIVE: VITAL SIGNS: Temperature 97.8, pulse 71, respiratory rate 20, blood pressure 126/56, 91% on room air. GENERAL: The patient is awake, alert, and oriented to person, place and time. Slightly hard of hearing. Mild jugular venous distention (JVD). LUNGS: Diminished, crackles at the bases. HEART: S1, S2 irregularly irregular. ABDOMEN: Soft, nontender, nondistended. Positive bowel sounds. EXTREMITIES: Positive pitting edema, 1+. LABORATORY DATA: White count 5.8, hemoglobin 10, hematocrit 31, platelet count 189. Sodium 137, potassium 4.1, chloride 101, bicarbonate 29, BUN 47, creatinine 2.11, glucose of 102, BNP of 801, total bilirubin of 1.8. Previous magnesium of 2.5. Hemoccult stool positive. CT of the abdomen and pelvis: Moderate right pleural effusion, right lower lobe atelectasis and infiltrate. Gallstones in the gallbladder, which does not appear inflamed. Bilateral renal cysts without hydronephrosis. No bowel wall thickening or inflammation of free air, free fluid or adenopathy. Right inguinal hernia containing fat. Left lower quadrant anterior wall hernia, contains nonobstructive bowel. ASSESSMENT AND PLAN: This is an 86-year-old male who follows with Dr. Gross' office with a history of atrial fibrillation, status post coronary artery bypass graft (CABG) times three vessels, bowel surgery, congestive heart failure (CHF), chronic atrial fibrillation, hypertension, hyperlipidemia, reflux, baseline creatinine 1.3 to 1.4, chronic kidney disease stage III, presented to the emergency room with complaints of shortness of breath and abnormal blood tests. The patient reports that his lower extremity edema has worsened. He was taking Lasix 200 mg daily and torsemide. No improvement in edema. Presented to the emergency room due to abnormal findings by his primary care provider on routine blood tests. He was found to be anemic with black, tarry stools at home. Acute on chronic renal failure with a creatinine of 3.6 on admission and congestive heart failure (CHF). Current issues are as follows: 1. Symptomatic anemia. The patient had heme positive stool. Received 2 units of red blood cell transfusion with some improvement. The patient has not had a prior colonoscopy. CT of the abdomen and pelvis ruled out a colonic mass. Hemoglobin ad hematocrit remain stable. No acute indication for immediate GI referral. 2. Acute on chronic kidney disease stage IV. The patient is in decompensated heart failure. Fluid management per Dr. Chang for now. He diuresed well with a dose of Lasix two days ago; however, blood pressure is in 90s and 80s, which prevented us from diuresing further. He had been placed on midodrine to increase blood pressure and appears to be improved at [address] Chang had given one dose of Lasix today. Monitor input and output, daily weights, avoid nephrotoxins. Monitor for worsening symptoms. Continue on telemetry. 3. History of atrial fibrillation. Currently with bradycardia, ventricular rate decreases to 30 and 35 while the patient is asleep. Defer to Dr. Gross for further workup and need for pacemaker placement. The patient will be resumed back on anticoagulation as there appears to be no active GI bleeding. Monitor hemoglobin and hematocrit for now. 4. History of coronary artery disease (CAD), coronary artery bypass graft (CABG) times three valve surgery. Fluid management for heart failure per nephrology. 5. Hyperlipidemia. On Zocor. 6. Congestive heart failure (CHF), decompensated. Diuresis per nephrology. No nvsldcmlpxj-bewfkaylbz-htypbl (HARVEY) inhibitor or ARB due to renal failure. 7. Abnormal bilirubin, liver function tests secondary to hepatic congestion from CHF
--- NOTE | 2017-05-13 21:55 | IPN ---
DATE: 05/12/2017 SUBJECTIVE: The patient is seen and examined at the bedside. Chart has been reviewed. The patient currently denies any chest pain, pressure, tightness, lightheadedness, near syncope, dizziness. Denies any shortness of breath, nausea, vomiting or abdominal pain. He is anxious to go home. The patient does complain of continued fatigue and weakness. According to the daughter at the bedside, he appears to be improved from yesterday, and his color appears to be pinker, but he is not back to his baseline strength. On telemetry, the patient was noted to have nonsustained ventricular tachycardia four beats yesterday and seven beats today. Hemodynamically stable and asymptomatic throughout the entire episode. OBJECTIVE: VITAL SIGNS: Current temperature is 98.1, pulse 51 irregular, respiratory rate 22, blood pressure 84/42, 93% on room air. GENERAL: The patient is awake, alert, and oriented times three, answering questions appropriately. LUNGS: Diminished, clear in upper lobes. HEART: S1, S2 irregularly irregular. ABDOMEN: Soft, nontender, nondistended. Positive bowel sounds. EXTREMITIES: 2+ pitting edema. LABORATORY DATA: Has been reviewed. ASSESSMENT AND PLAN: This is an 86-year-old male, history of atrial fibrillation, abnormal electrocardiogram (EKG), with right ventricular hypertrophy (RVH), poor historian, coronary artery bypass graft (CABG) times three and valve surgery, chronic atrial fibrillation, hypertension, hyperlipidemia, chronic kidney disease, baseline creatinine 1.3 to 1.4, reflux disease, presents to the emergency room due to abnormal blood tests. He was found to have symptomatic anemia and acute on chronic renal failure. Current issues are as follows: 1. Symptomatic anemia secondary to gastrointestinal (GI) blood loss. Patient's hemoglobin and hematocrit have been stable after two units of red blood cell transfusion. He currently denies any chest pain, pressure or tightness, shortness of breath. Hemoccult stool is positive. Hemoglobin and hematocrit remain stable. Continue to monitor for symptoms. Patient has not had prior colonoscopy. Therefore, we will obtain CT abdomen and pelvis. Rule out colonic mass. 2. Acute on chronic kidney disease stage IV with congestive heart failure (CHF) exacerbation. Currently decompensated CHF. The patient diuresed 2.2 liters out after one dose of Lasix 40 mg, but is currently hypotensive with systolic pressure in the 80s. He is asymptomatic currently. Dr. Chang has started him on Midodrine to increase the patient's blood pressure. Refer to nephrology for volume status and changes in diuresis. 3. Congestive heart failure (CHF), decompensated. Unknown ejection fraction. Awaiting records from Dr. Gross' office and awaiting repeat echocardiogram. We are unable to diuresis him due to low blood pressure. He is currently asymptomatic, appear to be comfortable on room air. Further diuresis to be made by Dr. Chang once the patient's blood pressure is improved. 4. Coronary artery disease (CAD), coronary artery bypass graft (CABG) and valvular surgery. Obtain records from his elephant tamer, Dr. Zamorano/Dr. Gross. Fluid management for heart failure per nephrology. 5. Chronic atrial fibrillation. Appears to be rate controlled. 6. Nonsustained ventricular tachycardia. Await echo. Magnesium and potassium are normal. If sustained or low blood pressure unstable, will stabilize and consult cardiology. 7. Hypertension, stable. Currently low blood pressure. Currently on no beta blockade or blood pressure medications due to systolic pressure in the 80s. 8. Hyperlipidemia. Obtain medication list from his elephant tamer.
[2017-05-14 04:00] VITALS: BP 102/53
[2017-05-14 05:30] LABS: MEAN CORPUSCULAR HEMOGLOBIN 27.1 pg (27.0-33.0); MEAN CORPUSCULAR HGB CONC 31.5 g/dl (32.0-36.5); MEAN CORPUSCULAR VOLUME 85.8 fl (80.0-96.0); WHITE BLOOD COUNT 6.5 K/mm3 (4.0-10.0)
[2017-05-14 05:48] LABS: ALBUMIN 2.6 GM/DL (3.2-5.2); ALBUMIN/GLOBULIN RATIO 0.72 (1.00-1.93); BILIRUBIN,TOTAL 1.6 MG/DL (0.2-1.0); CALCIUM LEVEL 8.3 MG/DL (8.8-10.2); CREATININE FOR GFR 1.85 MG/DL (0.70-1.30); GLOMERULAR FILTRATION RATE 37.3 (>35); POTASSIUM SERUM 3.8 MEQ/L (3.5-5.1); TOTAL PROTEIN 6.2 GM/DL (6.4-8.2)
[2017-05-14] MEDS: SLF 3 ML SYR IV SCH ×3 (06:19→21:51)
[2017-05-14 08:00] VITALS: BP 124/71
[2017-05-14] MEDS: ASCORBIC ACID 500 MG TAB PO SCH (08:15)
[2017-05-14] MEDS: FERROUS SULFATE 325MG TAB PO SCH ×2 (08:15→21:51)
[2017-05-14] MEDS: DOCUSATE SODIUM 100 MG CAP PO SCH (08:15)
[2017-05-14] MEDS: ASPIRIN 81 MG ENTERIC TAB PO SCH (08:15)
[2017-05-14] MEDS: MIDODRINE 5 MG TAB PO SCH ×3 (08:15→16:12)
[2017-05-14] MEDS: PANTOPRAZOLE 40MG TAB (PROTONIX) PO SCH (08:15)
[2017-05-14] MEDS ORDERED: FUROSEMIDE 40 MG TAB PO ONE (10:30)
--- NOTE | 2017-05-14 11:50 | IPN ---
DATE: 05/14/2017 The patient continues to have episodes of bradycardia in the 30s while asleep, asymptomatic. He has opted not to pursue pacemaker. Currently denies any shortness of breath. Input and output has been adequate. Output of 1.3 liters. Negative 1 liter. 80.4 kg. OBJECTIVE: VITAL SIGNS: Temperature 97.6, pulse 91, respiratory rate 19, blood pressure 124/71, 92% on room air. GENERAL: Awake, alert, and oriented times three. Answering questions appropriately. No use of respiratory accessory muscles. Able to speak in full sentences. LUNGS: Diminished crackles at the bases. HEART: S1, S2 irregularly irregular. ABDOMEN: Soft, nontender, nondistended. Positive bowel sounds. EXTREMITIES: No pitting edema. LABORATORY DATA: White count 6.5, hemoglobin 9.5, hematocrit 30, platelet count 180. Sodium 138, potassium 3.9, chloride 102, bicarbonate 30, BUN 45, creatinine 1.85, glucose of 96, total bilirubin of 1.6, hemoccult stool positive. Microbiology and imaging studies have been reviewed. ASSESSMENT AND PLAN: This is an 86-year-old male with a history of atrial fibrillation, abnormal EKG, right ventricle hypertrophy, poor historian, coronary artery bypass graft (CABG) times three valve surgery, chronic atrial fibrillation, hypertension, hyperlipidemia, chronic kidney disease, baseline creatinine 1.4, reflux, who presented to the emergency room due to abnormal blood tests. He was complaining of fatigue and was found to have symptomatic anemia and acute on chronic renal failure. Current issues are as follows: 1. Symptomatic anemia secondary to GI blood loss. The patient's hemoglobin and hematocrit have been stable after 2 unit red blood cell transfusion. Currently denies any chest pain, pressure, tightness, shortness of breath. Hemoccult stool is positive. Hemoglobin and hematocrit remain stable. Continue to monitor for symptoms. The patient has not had any prior colonoscopies. CT of the abdomen and pelvis is negative for colonic mass. Outpatient followup with gastroenterology or general surgery. 2. Congestive heart failure (CHF), decompensated, diastolic dysfunction from hypertension. Managed by Dr. Chang currently. Appears to be close to euvolemia. Strict input and output, daily weights and fluid restriction. 3. Acute on chronic renal failure stage IV with decompensated CHF. The patient diuresed well and blood pressure has improved and Lasix can be given. He is currently close to euvolemia. Dr. Chang has been managing his fluid status. 4. History of coronary artery disease (CAD), coronary artery bypass graft (CABG) times three valve surgery. Fluid management for heart failure per nephrology. Dr. Gross' input is greatly appreciated. 5. Atrial fibrillation with slow ventricular rate. 6. Tachybrady syndrome. The patient has opted not to pursue pacemaker. DISPOSITION: Once euvolemic and cleared by Dr. Chang, may be discharged home with outpatient followup with Dr. Gross.
[2017-05-14 12:00] VITALS: BP 121/83
--- NOTE | 2017-05-14 12:06 | IPN ---
DATE: 05/14/2017 Mr. Watson is seen this morning on his bedside. He is sitting in the chair today and feels better. He reports that he ambulated in the hallway. He denies any dyspnea, chest pain, nausea, vomiting, fever or chills. His strength is improving. On physical examination, temperature 97.6 degrees Fahrenheit, heart rate 90 per minute and respiratory rate 18 per minute. Blood pressure 124/70 mmHg and oxygen saturation 92% on room air. Intake and output records from yesterday showed total intake only 300, which is probably not accurate. Output was recorded at 1300 mL. His weight is unchanged for the last 2 days. His head is atraumatic. Neck veins are not abnormally distended sitting upright in the chair. Heart sounds are regular. Lungs with diminished breath sounds at right lower one-third. There are few rales at bases. Abdomen is soft and nontender, and bowel sounds are normal. Extremities have trace of leg edema. There is no cyanosis or clubbing. Skin has no rash or ulcers. Neurologically he is awake, alert and oriented times three. Today's labs show WBC count 6.5, hemoglobin 9.5 and hematocrit 30.1. Platelets 180. Sodium 138 and potassium 3.8. BUN 45 and creatinine 1.85. Calcium level is 8.3. PROBLEMS: 1. Acute kidney injury superimposed on chronic kidney disease. Kidney function has been improving nicely and has not returned to baseline as yet. We will recheck his renal profile tomorrow. 2. Congestive heart failure. Volume status has improved with negative fluid balance every day. Weight has not changed much for the last couple of days. I am going to put him back on his daily dose of Lasix 40 mg by mouth. His electrolytes will be checked tomorrow morning. He remains off his angiotensin-converting enzyme (HARVEY) inhibitor and spironolactone at this point. 3. Hypotension. Blood pressure has improved and patient continues with midodrine 5 mg three times a day, which was started just 2 days ago. He has been off his HARVEY inhibitor. 4. Anemia. Slight worsening of his anemia is noted. He did require transfusion on admission and at this point, we will continue to monitor. His stool should be checked for occult blood. One test was positive for occult blood in his stool. Patient has been on Xarelto and we need to rule out gastrointestinal (GI) bleed as cause of his anemia. At this point, we will continue with iron supplement 325 mg twice a day.
[2017-05-14 16:00] VITALS: BP 111/56
[2017-05-14 20:30] VITALS: BP 146/79
[2017-05-14] MEDS: SIMVASTATIN 20 MG TAB PO SCH (21:51)
[2017-05-14] MEDS: RIVAROXABAN 10 MG TAB (XARELTO) PO SCH (21:51)
--- NOTE | 2017-05-14 22:42 | IPN ---
DATE:05/14/2017 CARDIOLOGY PROGRESS NOTE SUBJECTIVE: The patient has been up in the room and to the bathroom today without shortness of breath or dizziness. Has also remained free of any chest discomfort. OBJECTIVE: Pleasant elderly male lying comfortably with the head of bed elevated only 30 degrees. Slight pallor. Heart rate 62 beats per minute (BPM) and irregular, blood pressure 111/56 supine, respiratory rate 18 per minute, O2 saturation 95% on room air. Afebrile. Weight today is unchanged from the past few days. Intake and output balance is not accurate. Normal oral moisture. Trachea midline. Neck veins remain elevated as yesterday approximately 8 cm above sternal angle. Does not appear short of breath but continues to have reduced air entry and some dullness over the right base with few inspiratory rales over the left. No audible wheeze. One mm pitting edema one half the way up both lower legs and over sacrum. 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 May have intermittent marked bradycardia while at rest that is asymptomatic. LABORATORY DATA: Hemoglobin today 9.55 slightly down from yesterday. Normal white blood cell count and platelet count. Electrolytes were in balance. BUN 45, creatinine 1.85 down from yesterday off his lisinopril and with slightly improved blood pressure using midodrine. Fasting glucose 96. Albumin remains soft at 2.6. Serial BNP measurements have essentially been stable throughout his hospitalization. IMPRESSION/PLAN: 1. Arteriovenous (AV) block (unspecified): Remains free of symptomatic bradyarrhythmia. As mentioned, I had a long discussion with the patient and his family yesterday. A pacemaker is not likely to prolong his life with his documented severe pulmonary hypertension and right heart failure and at this point is not likely to make him feel better. The patient and his family agree not to pursue this form of therapy. We had had a vida discussion regarding advanced directives and they had told me they wished no invasive intervention. I had filled out the physician's portion of his Medical Orders for Life-Sustaining Treatment (MOLST) form, yet curiously the patient was reluctant to sign this document. 2. Atrial fibrillation: Longstanding problem as mentioned before. Has not been documented to have rapid ventricular response as mentioned before. He has unfortunately suffered a prior transient ischemic attack due to this condition warranting oral anticoagulation. In light of his dropping hemoglobin, I have discontinued his low-dose aspirin, but have not changed his low-dose Xarelto. Interestingly, the literature reports that oral anticoagulation does not appear to be very effective in preventing systemic thromboembolic events or strokes in patients with advanced renal insufficiency, but does place them at increased risk of bleeding. We will have to continue to monitor his hemoglobin carefully. 3. Heart failure (diastolic/chronic): Has been tolerating midodrine with improving renal function. Has not mounted much in the way of a negative fluid balance and his weight has been quite stable given that his reduced cardiac output is primarily related to his severe pulmonary hypertension. I understand he is keen to go home. His congested state will continue to be managed with a modest salt and fluid intake restriction and I have emphasized the importance of this. He will also remain on furosemide 40 mg daily. I anticipate his renal function will again deteriorate leading to further salt and fluid retention. With his severe pulmonary hypertension and soft blood pressure, I do not think he would be a good candidate for hemodialysis. 4. Pulmonary heart disease (chronic): As previously discussed, this condition is believed to be related to multiple factors including his left heart disease as well as prior heavy smoking history and possibly an element of prior obstructive sleep apnea. He is on oral anticoagulation that should be a preventative for deep venous thromboses. 5. Coronary disease ([place] vessel) / post coronary artery bypass graft (CABG) times two: Continues to be free of effort-related chest discomfort which had plagued him prior to his bypass surgery in 2014. In light of his anemia, he will continue on simvastatin and oral anticoagulation alone. 6. Hypertensive heart disease (benign with heart failure): As mentioned above, current systolic blood pressure is being maintained with oral vasoconstrictive therapy midodrine. BUN and creatinine appear to be responding to this. He is on no other form of antihypertensive therapy beyond diuretic therapy alone. Dr. Chang continues to monitor him. I would concur with his tentative discharge tomorrow if he is able to pass his home safety evaluation. Unfortunately, I feel his prognosis is poor. I believe he has a tentative office followup appointment with us, but we would be pleased to reassess him at any time. I thank you for allowing us to participate in the care of your patient. Best regards.
[2017-05-14 23:30] VITALS: BP 140/74
[2017-05-15 04:45] VITALS: BP 118/52
[2017-05-15 05:58] LABS: MEAN CORPUSCULAR HEMOGLOBIN 27.1 pg (27.0-33.0); MEAN CORPUSCULAR HGB CONC 31.2 g/dl (32.0-36.5); MEAN CORPUSCULAR VOLUME 86.9 fl (80.0-96.0); RED CELL DISTRIBUTION WIDTH 18.4 % (11.5-14.5); WHITE BLOOD COUNT 6.5 K/mm3 (4.0-10.0)
[2017-05-15] MEDS: SLF 3 ML SYR IV SCH (06:00)
[2017-05-15 06:09] LABS: ALBUMIN 2.7 GM/DL (3.2-5.2); ALBUMIN/GLOBULIN RATIO 0.73 (1.00-1.93); BILIRUBIN,TOTAL 1.7 MG/DL (0.2-1.0); CALCIUM LEVEL 8.3 MG/DL (8.8-10.2); CREATININE FOR GFR 1.69 MG/DL (0.70-1.30); GLOMERULAR FILTRATION RATE 41.4 (>35); POTASSIUM SERUM 3.9 MEQ/L (3.5-5.1); TOTAL PROTEIN 6.4 GM/DL (6.4-8.2)
[2017-05-15] MEDS ORDERED: VITA500T PO (07:21)
[2017-05-15] MEDS ORDERED: COLA100C5 PO (07:21)
[2017-05-15] MEDS ORDERED: FERR1TAB8 PO (07:21)
[2017-05-15] MEDS ORDERED: MIDO5TA PO (07:21)
[2017-05-15] MEDS ORDERED: MIRA3350 PO (07:22)
[2017-05-15] MEDS ORDERED: DULC5TAB PO (07:22)
[2017-05-15 08:00] VITALS: BP 140/56
[2017-05-15] MEDS: MIDODRINE 5 MG TAB PO SCH (08:00)
--- NOTE | 2017-05-15 08:18 | REP ---
Chest one-view HISTORY: shortness of breath Comparison: 05/13/2017 Increased density is present in the lower lobes consistent with bibasilar infiltrates unchanged compared to the previous study. A small right pleural effusion is present unchanged compared to the previous study. The heart is normal in size. The pulmonary vasculature is normal in appearance. Impression: Bibasilar infiltrates and right effusion unchanged compared to the previous study. Signed by Rashaad Hoff MD 05/15/2017 08:10 A
--- NOTE | 2017-05-15 08:37 | ECHO ---
DATE OF PROCEDURE: 05/12/2017 AGE: 86 GENDER: Male REFERRING PHYSICIAN: Dr. Larissa Campos HEIGHT: 69 inches. WEIGHT: 178 pounds. BODY SURFACE AREA: 1.97 sq m. INPATIENT: PCU Room 3218 INDICATION: Heart failure (acute on chronic). Atrial fibrillation. MEASUREMENTS: 2D MEASUREMENTS: RV - 4.6 cm LV- 4.6 cm Septum - 1.2 cm Posterior wall - 1.1 cm Aortic root - 3.1 cm LA - 4.8 cm LVEF - 55-60% DOPPLER MEASUREMENTS: AV - 1.5 m/s LVOT - 0.8 m/s LVOT diameter - 2.1 cm MV-E: 0.7 Early mitral deacceleration time 208 ms E-prime - 5 E/E prime ratio 14.4 PV - 0.7 m/s Pulmonary artery acceleration time 77 ms RVSP - 70-75 mmHg IVC - 2.1 cm COMMENTS: Underlying atrial fibrillation with slightly slow ventricular response averaging 52 bpm. No intraventricular conduction disturbance. Moderately dilated left atrium but normal left ventricular size but moderately dilated right heart chambers. Left ventricular wall thickness was upper limits of normal to borderline hypertrophied. On real-time imaging from the parasternal and apical projections, there was paradoxical septal motion with flattening of the intra-atrial septum during both systole and diastole. Other left ventricular loredo were hyperkinetic. Right ventricular free wall was significantly hypokinetic. Mild thickening of the mitral annulus but normal leaflet thickness and excursion with no posterior systolic buckling. Three equal size aortic cusps with mildly thickened cusp edges but adequate cusp separation. Normal aortic root size. There was obvious thickening of the tricuspid annulus post tricuspid valve repair. No other intracardiac mass or pericardial effusion. Color flow Doppler study taken from the parasternal and apical projection showed mild aortic, mild mitral, mild tricuspid and mild pulmonic insufficiency. Guided continuous wave Doppler of his aortic valve showed a normal peak systolic velocity against LV outflow tract obstruction. Pulsed and continuous wave Doppler of his LV inflow tract taken from the apical four-chamber projection showed normal diastolic filling velocities against mitral stenosis. There was only early diastolic/passive filling pattern as we would expect with atrial fibrillation. His early mitral deceleration time was upper limits of normal but current estimated mean left atrial pressure was also only upper limits of normal at 14 mmHg. Pulsed and continuous wave Doppler of his pulmonary trunk showed a normal peak systolic velocity against RV outflow tract obstruction but his pulmonary artery acceleration time was significantly abbreviated consistent with an elevated pulmonary vascular resistance. Guided continuous wave Doppler of his tricuspid valve allowed our estimation of his right ventricular systolic pressure (severely increased). His inferior vena cava was mildly dilated with markedly reduced respiratory collapse in keeping with an elevated central venous pressure. CONCLUSIONS: Borderline left ventricular hypertrophy with normal left ventricular size. Septal wall motion abnormality related to right ventricular pressure overload yet preserved global resting left ventricular systolic function. Moderately dilated left atrium with currently estimated mean left atrial pressure upper limits of normal. Moderately dilated right heart chambers with obvious right ventricular hypokinesis and Doppler evidence of severe pulmonary hypertension. Mildly dilated inferior vena cava with reduced respiratory collapse suggestive of an elevated central venous pressure. Thickened tricuspid valve annulus related to recent valve repair with no inflow tract obstruction and only mild insufficiency. Mild aortic valvular sclerosis without stenosis and only mild insufficiency. Mild mitral annular calcification without inflow tract obstruction and only very mild insufficiency. Based on the above test findings, with this degree of pulmonary hypertension and right heart failure, his prognosis is quite guarded. We would anticipate with the observed reduced baseline cardiac output, he has very limited reserve, and that even hemodialysis may provoke hemodynamic embarrassment. CLIF
[2017-05-15] MEDS: PANTOPRAZOLE 40MG TAB (PROTONIX) PO SCH (08:57)
[2017-05-15] MEDS: ASCORBIC ACID 500 MG TAB PO SCH (08:57)
[2017-05-15] MEDS: DOCUSATE SODIUM 100 MG CAP PO SCH (08:57)
[2017-05-15] MEDS: FERROUS SULFATE 325MG TAB PO SCH (08:57)
[2017-05-15] MEDS ORDERED: FUROSEMIDE 40 MG TAB PO SCH (09:00)
--- NOTE | 2017-05-15 09:53 | PULFX ---
DATE OF STUDY: 05/15/2017 Nocturnal recording oximetry was performed on room air. Baseline saturation was 96%. Lowest oxygen saturation reliably recorded 84%. The tracing was variable throughout and significant periods of time with were seen with saturations below 90%. IMPRESSION: Abnormal nocturnal recording oximetry with oxygen desaturations to 84%. A variable pattern throughout the study suggests Francisco-Marcus respiratory pattern.
[2017-05-15 12:00] VITALS: BP 139/74
--- NOTE | 2017-05-15 19:18 | ECGEPIP ---
Stationary ECG Study [facility] Test Date: 2017-05-15 Pat Name: CAROLYNE MOSLEY Department: Room: [place] [address] Gender: M Communications Assistant: KAYLAH : [id number] Requested By: RADHA Bauman Order Number: [id number] Reading MD: Michael Gross Measurements Intervals [place] Rate: 55 P: DE: 0 QRS: 149 QRSD: 106 T: 154 QT: 471 QTc: 452 Interpretive Statements ATRIAL FIBRILLATION WITH SLOW VENTRICULAR RESPONSE PATTERN CONSISTENT WITH PULMONARY DISEASE RIGHT VENTRICULAR HYPERTROPHY AND ST-T Abnormality No change from 05/13/17 Electronically Signed On 05-15-2017 19:18:27 EDT by Michael Gross
--- NOTE | 2017-05-16 05:37 | IPN ---
DATE: 05/15/2017 SUBJECTIVE: The patient was seen and examined at the bedside today morning. He was sitting on the sofa, no apparent distress. Renal function is improving. Creatinine is down to 1.6. Shortness of breath has improved at this time. REVIEW OF SYSTEMS: The patient denies any fevers, chills, rigors, headaches, nausea, vomiting, chest pain, shortness of breath. Rest of review of systems is negative. OBJECTIVE: VITAL SIGNS: Temperature is 97.6 degrees Fahrenheit, blood pressure 140/56, pulse is 64, respiratory rate of 18, saturating 93% on room air. INTAKE AND OUTPUT: Urine output recorded as 1.1 liters yesterday, 525 mL so far today since overnight. Weight in the bed scale is 80.4 kg. PHYSICAL EXAMINATION: GENERAL: The patient is awake, alert, oriented times three, sitting on the sofa in no apparent distress. HEAD/NECK: Extraocular muscles intact. Pupils equal, round, and reactive to light. Mucous membranes are moist. Neck is supple. There is no jugular venous distention (JVD). CARDIOVASCULAR: S1, S2. Regular rate. No murmur, rub, or gallop. RESPIRATORY: Chest is clear to auscultation bilaterally. Bilateral equal air entry. No rales or rhonchi. ABDOMEN: Soft. Positive bowel sounds. Nontender. No ascites. No organomegaly. MUSCULOSKELETAL: The patient has trace edema of the bilateral lower extremities. Otherwise, no clubbing or cyanosis. Pulses are 2+. CENTRAL NERVOUS SYSTEM (FOOTWEAR SALES REPRESENTATIVE): No focal neurological deficit. Power is 5/5 in all extremities. LABORATORY DATA: CBC showed a WBC 6.5, hemoglobin 9.9, platelets of 180. BMP shows sodium 139, potassium 3.9, chloride 101, bicarbonate 28, BUN 14, creatinine 1.6. It was 1.8 yesterday. Calcium is 8.3. Albumin 2.7. IMAGING: Chest x-ray done today morning showed bibasilar infiltrates and right effusion, unchanged compared to the previous study. CURRENT INPATIENT MEDICATIONS: The patient's inpatient medications were all reviewed by me. He is currently on: - Lasix 40 mg by mouth daily - midodrine 5 mg by mouth every eight hours There is no other change in the medications today as compared with yesterday. ASSESSMENT: An 86-year-old male with acute kidney injury superimposed on chronic kidney disease and acute decompensated systolic congestive heart failure. PLAN: 1. Acute kidney injury superimposed on chronic kidney disease: The patient's renal function is improving. Creatinine is close to baseline. It is down to 1.6 at this time. 2. Decompensated congestive heart failure: The patient has been restarted on Lasix 40 mg by mouth daily. Volume status is well optimized at this time. Angiotension-converting enzyme (HARVEY) inhibitors and spironolactone are on hold at this time because of acute kidney injury. 3. Chronic hypotension: Continue current dose of midodrine 5 mg by mouth every eight hours. 4. Anemia: Hemoglobin is 9.9 which is acceptable at this time. 5. Discharge planning: It is okay to discharge the patient from nephrology standpoint. The patient can followup in nephrology service within two weeks after discharge from the hospital. Plan of care was discussed with the hospitalist team, Dr. Larissa Campos.
--- NOTE | 2017-06-07 10:29 | DSES ---
DATE OF ADMISSION: 05/10/2017 DATE OF DISCHARGE: 05/15/2017 CONSULTANTS DURING THIS ADMISSION: Dr. Gross, cardiology. Dr. Martini, nephrology. PRIMARY CARE PHYSICIAN: Dr. Phillips. PRIMARY DISCHARGE DIAGNOSES: Symptomatic anemia secondary to gastrointestinal (GI) blood loss. Congestive heart failure (CHF) decompensated. Diastolic dysfunction from hypertension. Acute on chronic renal failure stage IV with decompensated CHF. 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 Atrial fibrillation with slow ventricular rate. Tachybrady syndrome. Patient refused pacemaker placement. DISCHARGE MEDICATIONS: - vitamin C 500 mg daily - bisacodyl 5 mg daily as needed - Colace 100 mg daily - ferrous sulfate 325 twice daily - midodrine 5 mg at 8, 12, and 4 p.m. - MiraLax 17 grams daily - aspirin 81 daily - Lasix 40 daily - garlic 500 daily - glucosamine 500 daily - lisinopril 5 mg daily - Protonix 40 mg daily - Xarelto 10 mg daily at bedtime - simvastatin 20 mg daily at bedtime HOSPITAL COURSE: This is an 87-year-old male with history of atrial fibrillation with abnormal EKG, right ventricular hypertrophy, poor historian, coronary artery disease, coronary artery bypass graft times three, valve surgery, chronic atrial fibrillation, hypertension, hyperlipidemia of chronic disease, baseline creatinine 1.4, reflux, presented to the emergency room due to abnormal blood test, found to have symptomatic anemia and acute on chronic renal failure. Patient's hemoglobin and hematocrit has been stable after 2 units red blood cell transfusion with admission hemoglobin of 8.3 and discharge of 9.9, hemoccult stool was positive. Patient had symptomatic anemia. Chest x-ray on admission shows congestive heart failure with small right pleural effusion, interstitial edema and vascular congestion. Renal ultrasound due to acute on chronic renal failure showed no other morphologic abnormality aside from a small cyst in each kidney. Patient was managed by Dr. Martini, nephrology and Dr. Gross, shipping and receiving for his CHF exacerbation and bradyarrhythmia. EKG showed atrial fibrillation with slow rate of 52, episodes of bradycardia of 42 with AV block which was nonspecified. Patient had heart rate as low as 33 beats per minute documented. Unlikely that pacemaker will prolong his life especially for asymptomatic bradycardia which has been explained to the patient by Dr. Gross. Patient has since refused pacemaker placement and is continued on home medications. Once patient was euvolemic, his renal failure is improved to 1.69 creatinine from admission creatinine of 3.67. Despite heme positive stool, no GI evaluation was done during this admission due to decompensated heart failure. Outpatient followup with his primary care physician and referral to gastroenterology or general surgery for further evaluation. Patient's heart failure improved. He has remained net negative balance. Admission weight of 88.82 kg and discharge weight of 80.4 kg. Patient was felt to be euvolemic and discharged and was kept on Lasix 40 daily. Volume status was optimal at that time. Misael inhibitor, spironolactone were held due to acute kidney injury. Due to chronic hypotension, was started on midodrine 5 mg every 8 hours and was discharged in stable condition after passing home safety evaluation. LABS ON DISCHARGE: White count 6.5, hemoglobin 9.9, hematocrit 31.8, platelet count 180. Sodium 139, potassium 3.9, chloride 101, bicarbonate 28, BUN 40, creatinine 1.69, glucose of 90, total bilirubin 1.7, AST 27, ALT 14, alkaline phosphatase 120. Total CK 45. MB fraction 1.3. Troponin 0.92. BNP was 851. Microbiology: Hemoccult stool 05/11/[address] abdomen and pelvis 05/12/2017: Moderate right pleural effusion, adjacent right lower lobe atelectasis or infiltrate, gallbladder with gallstones not inflated, bilateral renal cysts without hydronephrosis, left lower quadrant anterior wall hernia contains nonobstructive bowel, right inguinal hernia contains fat. No bowel wall thickening or inflammation. No free air. Bilateral renal cysts without hydronephrosis. Chest x-ray 05/10/2017: CHF with small right pleural effusion, some interstitial edema and vascular congestion suspected. Repeat 05/13 chest x-ray: Small right pleural effusion, bibasilar infiltrates unchanged compared to prior study. TIME SPENT ON DISCHARGE: 40 minutes. CLIF
[2017-08-24] MEDS ORDERED: SPIR25TA2 PO (17:21)
== END 2017-05-15 12:40 | disposition home health service (06) | DRG 291 ==
LOC: M ED 12:41 → M ED INP 16:16 → M PCU 21:14 → M MSPAV 05-12 17:05 → M PCU 05-12 17:27
PROVIDERS: ADMIT Internal Medicine; ATTEND General Practice
PROC: 30233N1 Transfusion of Nonautologous Red Blood Cells into Peripheral Vein, Percutaneous Approach (ICD-10-PCS; principal; 2017-05-10)
DX: I13.0 Hypertensive heart and chronic kidney disease with heart failure and stage 1 through stage 4 chronic kidney disease, or unspecified chronic kidney disease (principal); I50.33 Acute on chronic diastolic (congestive) heart failure; K92.2 Gastrointestinal hemorrhage, unspecified; N17.9 Acute kidney failure, unspecified; N18.4 Chronic kidney disease, stage 4 (severe); I47.2 Ventricular tachycardia; D50.0 Iron deficiency anemia secondary to blood loss (chronic); I49.5 Sick sinus syndrome; I48.2 Chronic atrial fibrillation; I25.10 Atherosclerotic heart disease of native coronary artery without angina pectoris; Z79.899 Other long term (current) drug therapy; Z79.82 Long term (current) use of aspirin; E78.5 Hyperlipidemia, unspecified; K80.20 Calculus of gallbladder without cholecystitis without obstruction; N28.1 Cyst of kidney, acquired; K21.9 Gastro-esophageal reflux disease without esophagitis; Z87.891 Personal history of nicotine dependence; I44.30 Unspecified atrioventricular block

== ENCOUNTER → 2019-07-02 | Outpatient (REF) | payer OTHER ==
[~2019-07-02] MED LIST changes: -ASPI1TAB PO; +ASPI81TA26 PO; -PANT40TA2 PO; +PANT40TA3 PO; +SPIR-10 PO; -SPIR25TA2 PO
[2019-07-02 20:28] LABS: PERCENT SATURATION 4.7 % (19.7-50.0)
== END ==
LOC: M LAB REF 18:12
PROVIDERS: ATTEND Nurse Practitioner Family
DX: D64.9 Anemia, unspecified (principal)

== ENCOUNTER → 2019-07-18 | Outpatient (REF) | payer OTHER | LOC: M LAB REF 13:33 | PROVIDERS: ATTEND Nurse Practitioner Family | DX: D50.9 Iron deficiency anemia, unspecified (principal); Z79.899 Other long term (current) drug therapy; Z79.82 Long term (current) use of aspirin ==

== ENCOUNTER 2019-07-24 08:07 | Outpatient (CLI) | payer MEDICARE, OTHER ==
[~2019-07-24] VITALS: Ht 172.7 cm; Wt 64.5 kg
[2019-07-24 08:07] VITALS: BP 147/66
[2019-07-24] MEDS: IRON SUCROSE 25 MG in NS 50 ML IV ONE (08:28)
[2019-07-24 08:45] VITALS: BP 135/61
[2019-07-24 09:30] VITALS: BP 143/58
[2019-07-24] MEDS: IRON SUCROSE 475 MG in NS 250 ML IV ONE (09:37)
[2019-07-24 10:45] VITALS: BP 154/67
[2019-07-24 11:40] VITALS: BP 129/59
[2019-07-24 12:15] VITALS: BP 125/60
== END 2019-07-24 12:35 | disposition home or self-care (01) ==
LOC: M INFU 08:07
PROVIDERS: ATTEND Internal Medicine Nephrology
DX: D50.9 Iron deficiency anemia, unspecified (principal); Z79.899 Other long term (current) drug therapy
CPT/HCPCS: 96365; 96366; 96375; J1756

== ENCOUNTER 2019-08-15 12:54 | Inpatient (IN) | payer MEDICARE ==
[~2019-08-15] VITALS: Ht 177.8 cm; Wt 68.7 kg
[2019-08-15] MEDS ORDERED: ONDANSETRON 4MG/2ML VIAL (J2405) IV ONE (13:15)
[2019-08-15] MEDS ORDERED: POTA10TA16 PO (13:25)
[2019-08-15] MEDS: MORPHINE 2 MG/ML 1ML VIAL (J2270) IV PRN ×2 (13:37→15:25)
[2019-08-15 14:02] LABS: BASO % 0.1 % (0.0-1.0); HEMATOCRIT 35.2 % (42.0-52.0); HEMOGLOBIN 10.6 g/dl (13.5-17.5); LYMPH # 0.3 10^3/uL (1.5-5.0); LYMPH % 3.2 % (24.0-44.0); MEAN CORPUSCULAR HEMOGLOBIN 28.7 pg (27.0-33.0); MEAN CORPUSCULAR HGB CONC 30.1 g/dl (32.0-36.5); MEAN CORPUSCULAR VOLUME 95.4 fl (80.0-96.0); MONO # 0.3 10^3/uL (0.0-0.8); MONO % 4.1 % (0.0-5.0); NEUTROPHILS # 7.7 10^3/uL (1.5-8.5); NEUTROPHILS % 92.2 % (36.0-66.0); PLATELET COUNT, AUTOMATED 153 10^3/uL (150-450); RED BLOOD COUNT 3.69 10^6/uL (4.30-6.10); WHITE BLOOD COUNT 8.3 10^3/uL (4.0-10.0)
[2019-08-15 14:21] LABS: INR 2.02; PROTHROMBIN TIME 22.6 SECONDS (11.8-14.0)
[2019-08-15 14:22] LABS: PARTIAL THROMBOPLASTIN TIME 40.2 SECONDS (25.0-38.4)
--- NOTE | 2019-08-15 14:31 | REP ---
CT abdomen and pelvis without IV or oral contrast: History: Right flank pain. Comparison CT study May 12, 2017. CT findings: Preliminary digital night assistant radiograph demonstrates monitoring electrodes, median sternotomy wires, cardiomegaly, and blunting of the right pleural angle with pleural thickening on the right. Axial CT images show a small quantity of right pleural fluid. There is visceral and parietal pleural thickening. There is evidence of rounded atelectasis in the right lower lobe which is unchanged from the May 12, 2017 prior study. There is mild bibasilar interstitial fibrosis as well. Four-chamber cardiomegaly is observed. There are a few air bubbles in the right atrium consistent with tiny amounts of intravenous air introduced by intravenous line. There is evidence of a tricuspid valve replacement. Cholelithiasis is observed. The spleen is normal in size, homogeneous in texture. The liver edge is somewhat nodular and the left lobe is prominent question some degree of cirrhosis. No pancreatic abnormality is observed. The kidneys are somewhat atrophic. No hydronephrosis is seen. There is a left renal cyst peripherally from the lower pole measuring 3.2 cm in diameter. A normal appendix is seen in the right lower quadrant. There is no evidence of bowel obstruction. There is left colonic diverticulosis fairly extensively. There is a low lying spigelian hernia in the left lower quadrant transmitting a loop of unobstructed sigmoid colon which ascends along the anterior abdominal wall from the hernia defect. The defect in the abdominal wall measures 3.3 cm in right to left dimension. This hernia is unchanged from the 2017 prior study. On the right, there is an inguinal hernia transmitting an unobstructed loop of what appears to be small intestine. There is pancolonic diverticulosis. The urinary bladder is unremarkable. Prostate is mildly prominent in size. Impression: 1. Small quantity of right pleural fluid. Chronic pleural thickening and rounded atelectasis right lower lobe. 2. Cardiomegaly. 3. Question mild cirrhosis. 4. Cholelithiasis. 5. Renal cortical atrophy. 6. Pancolonic diverticulosis. 7. Left lower quadrant spigelian hernia transmitting an unobstructed loop of sigmoid colon. 8. Right inguinal hernia transmitting in an unobstructed loop of small intestine. 9. There is less pleural fluid in the right pleural space than was present previously. The gallbladder appears somewhat distended compared to the prior study. Otherwise, the findings are unchanged. Electronically Signed by Antony Atkins MD 08/15/2019 06:26 P
[2019-08-15 15:00] LABS: ALBUMIN 3.4 GM/DL (3.2-5.2); ALT/SGPT 17 U/L (12-78); AMYLASE 58 U/L (25-115); BILIRUBIN,DIRECT 0.7 MG/DL (0.0-0.2); BILIRUBIN,TOTAL 1.9 MG/DL (0.2-1.0); BLOOD UREA NITROGEN 29 MG/DL (7-18); CALCIUM LEVEL 8.9 MG/DL (8.8-10.2); CARBON DIOXIDE LEVEL 28 MEQ/L (21-32); CHLORIDE LEVEL 102 MEQ/L (98-107); CK-MB VALUE MASS 2.2 NG/ML (<3.6); CPK CREATINE PHOSPHOKINASE 36 U/L (39-308); CREATININE FOR GFR 1.85 MG/DL (0.70-1.30); GLUCOSE, FASTING 139 MG/DL (70-100); LIPASE 70 U/L (73-393); MB/CK RELATIVE INDEX 6.11 (< OR =4); POTASSIUM SERUM 3.9 MEQ/L (3.5-5.1); SODIUM LEVEL 139 MEQ/L (136-145); TOTAL PROTEIN 7.3 GM/DL (6.4-8.2); TROPONIN I < 0.02 NG/ML (< 0.10)
[2019-08-15] MEDS ORDERED: LIDOCAINE 2% 5ML JELLY UROJET TOP ONE (15:00)
[2019-08-15] MEDS ORDERED: NS 1,000 ML IV ONE (15:00)
[2019-08-15] MEDS ORDERED: ALBUTEROL SULFATE 2.5 MG/0.5 ML INH NEB SOLN INH ONE (15:15)
[2019-08-15] MEDS ORDERED: IPRATROPIUM 0.5MG/ALBUTEROL 2.5MG INH SOL UD 3ML (DUONEB)(J7620) NEB ONE (15:15)
--- NOTE | 2019-08-15 15:36 | REP ---
Single view chest: 08/15/2019. Indication: Hypoxia. Comparison: 05/11/2017. Findings: Diffuse interstitial fibrotic changes are noted. There is cardiomegaly with evidence of previous median sternotomy. The recently described rounded atelectasis of the right lower lobe is incompletely evaluated on this AP view. Plate-like atelectasis is noted involving the left lung base. Impression: Small right-sided pleural effusion. Diffuse chronic fibrotic changes. Incompletely evaluated right lower lobe rounded atelectasis. Cardiomegaly. Electronically Signed by Cortez Santiago DO 08/15/2019 03:27 P
[2019-08-15 15:37] LABS: ABG BASE EXCESS -0.6 (-2.0-2.0); ABG HCO3 24.3 MEQ/L (22.0-26.0); ABG O2 SATURATION 99.3 % (95.0-99.0); ABG PARTIAL PRESSURE CO2 40.9 mmHg (35.0-45.0); ABG PARTIAL PRESSURE O2 160.7 mmHg (75.0-100.0); ABG TOTAL CO2 25.5 MEQ/L (23.0-31.0); ABG pH (ARTERIAL) 7.391 UNITS (7.350-7.450)
[2019-08-15] MEDS ORDERED: COLA100C5 PO (15:46)
[2019-08-15] MEDS ORDERED: GARL1000 PO (15:46)
[2019-08-15] MEDS ORDERED: SIMV20TA2 PO (15:46)
[2019-08-15] MEDS ORDERED: MIRA3350 PO (15:46)
[2019-08-15] MEDS ORDERED: PANT-23 PO (15:46)
[2019-08-15] MEDS ORDERED: ASPI81TA26 PO (15:46)
[2019-08-15] MEDS ORDERED: POTA10TA17 PO (15:46)
[2019-08-15] MEDS ORDERED: VITA500C24 PO (15:46)
[2019-08-15] MEDS ORDERED: XARE10TA PO (15:46)
[2019-08-15] MEDS ORDERED: SPIR-10 PO (15:46)
[2019-08-15] MEDS ORDERED: GNP1000T11 PO (15:46)
[2019-08-15] MEDS ORDERED: MIDO5TA PO (15:46)
[2019-08-15] MEDS ORDERED: BIMA01SOL OU (15:46)
[2019-08-15] MEDS ORDERED: DULC5TAB PO (15:46)
[2019-08-15] MEDS ORDERED: FURO20TA2 PO ×2 (15:46)
--- NOTE | 2019-08-15 17:25 | REP ---
CT chest without contrast: History: Rule out pneumonia. Comparison is made with today's portable chest x-ray. CT findings: Preliminary medical office clerk radiograph demonstrates median sternotomy wires, cardiomegaly, and right pleural thickening and pleural angle blunting. There is evidence of tricuspid valve replacement. Helical scans demonstrate a small quantity of intravenous injected are in the right atrium and right subclavian vein. There is no evidence of mediastinal adenopathy or mass lesion. Coronary artery vascular calcification is seen. There is no evidence of free pleural effusion. There is visceral and parietal pleural thickening and a small quantity of fluid at the right lung base. There is rounded atelectasis in the right lower lobe unchanged from prior study. There are chronic fibrotic changes bilaterally and there is emphysema in the upper lobes. No definite acute infiltrate is seen. The lung bases are similar to their appearance on May 12, 2017. Impression: Chronic pleuroparenchymal changes right base with pleural thickening, spiral atelectasis, and scattered areas of fibrosis and COPD. No definite acute infiltrate seen. Electronically Signed by Antony Atkins MD 08/15/2019 06:31 P
[2019-08-15] MEDS ORDERED: PIPERACILLIN/TAZOBACTAM SOD 4.5 GM in D5W MINI-BAG PLUS 50 ML IV ONE (18:00)
--- NOTE | 2019-08-15 18:06 | REPVR ---
PROCEDURE INFORMATION: Exam: US Abdomen Limited, Right Upper Quadrant Exam date and time: 08/15/2019 5:20 PM Clinical history: 89 years old, male; Abdominal pain; Flank; Right upper quadrant (ruq); Additional info: Ruq pain TECHNIQUE: Imaging protocol: Real-time ultrasound of the abdomen with image documentation. Examination was focused on the right upper quadrant. COMPARISON: RENAL US 05/11/2017 8:13 AM FINDINGS: Liver: The liver is heterogeneous and has a lobulated, irregular surface contour, consistent with hepatic cirrhosis. No focal hepatic mass. Gallbladder: The gallbladder is distended and contains sludge. There are echogenic stones within the neck of the gallbladder. No gallbladder wall thickening or pericholecystic fluid. Common bile duct: Normal common bile duct, measuring 4 mm. Pancreas: The pancreas is not visualized secondary to overlying bowel gas. Right kidney: Limited scans of the right kidney demonstrate no hydronephrosis. IMPRESSION: 1. Cholelithiasis. 2. Hepatic cirrhosis. Electronically signed by: Abad Horvath On 08/15/2019 18:06:01 PM
--- NOTE | 2019-08-15 19:07 | HPEPDOC ---
[facility] Medical History & Physical Date of Admission Aug 15, 2019 Date of Service: Aug 15, 2019 Attending Physician: DENNY CAM MD History and Physical CHIEF COMPLAINT: Abdominal pain HISTORY OF PRESENT ILLNESS: 89-year-old male with past medical history of CHF, COPD, CVA, A. fib (on Xarelto) and open heart surgery (valve repair) presents to the ED with right upper quadrant abdominal pain for the past 1 day. Patient is a poor historian, at bedside to provide a medication, reports patient was well up until yesterday when he started expressing sudden abdominal pain, right upper quadrant, nonradiating, no associated symptoms, no alleviating or aggravating factors. He denies any nausea, vomiting or diarrhea. Workup in the ED, concerning for gallbladder disease, abdominal ultrasound showing a large gallbladder with cholelithiasis in the gallbladder neck. General surgery was contacted by the ED physician, who recommends IV antibiotics and admission. 10 point review of system was negative except for above PAST MEDICAL HISTORY: 1. COPD. 2. CHF. 3. A. fib. 4. CVA PAST SURGICAL HISTORY: 1. Heart Valve repair. SOCIAL HISTORY: Ex-smoker, quit many years ago. Denies alcohol use FAMILY HISTORY: Noncontributory ALLERGIES: Please see below. HOME MEDICATIONS: Please see below. PHYSICAL EXAMINATION: VITAL SIGNS: Please see below. GENERAL: No distress, thin, frail HEENT: Normocephalic, atraumatic, moist mucous membranes NECK: Supple CARDIOVASCULAR EXAMINATION: Irregularly irregular RESPIRATORY EXAMINATION: Diminished, poor air movement, no wheezing ABDOMINAL EXAMINATION: Soft, nontender, nondistended, positive bowel sounds EXTREMITIES: Range of motion intact SKIN: No rash NEUROLOGICAL EXAMINATION: no focal deficits PSYCHIATRIC EXAMINATION: Calm and cooperative LABORATORY DATA: See below. IMAGING: Abdominal ultrasound with distended gallbladder and cholelithiasis in the gallbladder neck MICROBIOLOGY: Please see below. ASSESSMENT: 89-year-old male with multiple comorbidities presents with abdominal pain and imaging concerning for distended gallbladder with stone in the gallbladder neck. PLAN: 1. Abdominal pain. Abdominal imaging concerning for distended gallbladder and cholelithiasis in the gallbladder neck. Gen. surgery consulted by ED, IV fluids, empiric Zosyn. Pain control 2. Acute renal failure. Likely related to poor by mouth intake and medication. Gentle IV hydration, status post IV fluids in the ED Likely underlying chronic kidney disease, baseline creatinine unknown 3. CHF. Status post open heart valve repair, patient and don't know which valve. Hold Lasix, spironolactone and HARVEY/ARB Clinically dry, will provide gentle IV hydration with normal saline at 80 ML per hour, will monitor for volume overload. 4. COPD Stable, continue home meds, supplemental oxygen to maintain O2 sats of 90%. 5. A. fib. Continue Xarelto for anticoagulation. 6. Hyperlipidemia Continue simvastatin. DVT prophylaxis: Xarelto GI prophylaxis: Home PPI Vital Signs Vital Signs Date Time Temp Pulse Resp B/P (MAP) Pulse Ox O2 Delivery O2 Flow Rate FiO2 08/15/19 18:30 155/65 (95) 08/15/19 18:18 71 91 08/15/19 15:57 19 Nasal Cannula 2.0 08/15/19 14:37 97.0 Laboratory Data Labs 24H Laboratory Tests 2 08/15/19 13:47: Immature Granulocyte % (Auto) 0.4, Neutrophils (%) (Auto) 92.2H, Lymphocytes (%) (Auto) 3.2L, Monocytes (%) (Auto) 4.1, Eosinophils (%) (Auto) 0.0, Basophils (%) (Auto) 0.1, Neutrophils # (Auto) 7.7, Lymphocytes # (Auto) 0.3L, Monocytes # (Auto) 0.3, Eosinophils # (Auto) 0.0, Basophils # (Auto) 0.0, Nucleated Red Blood Cells % (auto) 0.0, Prothrombin Time 22.6H, Prothromb Time International Ratio 2.02, Activated Partial Thromboplast Time 40.2H, Anion Gap 9, Glomerular Filtration Rate 37.0, Lactic Acid Level 3.3*H, Calcium Level 8.9, Total Bilirubin 1.9H, Direct Bilirubin 0.7H, Aspartate Amino Transf (AST/SGOT) 23, Alanine Aminotransferase (ALT/SGPT) 17, Alkaline Phosphatase 123H, Total Creatine Kinase 36L, Creatine Kinase MB 2.2, Creatine Kinase MB Relative Index 6 .11H, Troponin I < 0.02, Total Protein 7.3, Albumin 3.4, Albumin/Globulin Ratio 0.87L, Amylase Level 58, Lipase 70L 08/15/19 15:09: Urine Color YELLOW, Urine Appearance CLEAR, Urine pH 6.0, Urine Specific Baxter 1.009, Urine Protein NEGATIVE, Urine Glucose (UA) NEGATIVE, Urine Ketones NEGATIVE, Urine Blood NEGATIVE, Urine Nitrite NEGATIVE, Urine Bilirubin NEGATIVE, Urine Urobilinogen 0.2, Urine Leukocyte Esterase NEGATIVE, Urine WBC (Auto) 1, Urine RBC (Auto) 2, Urine Hyaline Casts (Auto) 0, Urine Bacteria (Auto) NEGATIVE, Urine Squamous Epithelial Cells 0, Urine Sperm (Auto) 08/15/19 15:28: Blood Gas Bicarbonate Standard 24.0, Arterial Blood pH 7.391, Arterial Blood Partial Pressure CO2 40.9, Arterial Blood Partial Pressure O2 160.7H, Arterial Blood Total CO2 25.5, Arterial Blood HCO3 24.3, Arterial Blood Base Excess -0.6, Arterial Blood Oxygen Saturation 99.3H CBC/BMP Laboratory Tests 08/15/19 13:47 Microbiology Microbiology 08/15/19 Blood Culture, Received Pending 08/15/19 Blood Culture, Received Pending Home Medications Scheduled Ascorbic Acid (Vitamin C) 500 Mg Capsule, 500 MG PO DAILY Aspirin (Aspirin EC) 81 Mg Tablet.dr, 81 MG PO DAILY Bimatoprost (Lumigan) 0.01% 2.5ML Drops, 1 DROP OU QHS Furosemide (Furosemide) 20 Mg Tablet, 40 MG PO DAILY Furosemide (Furosemide) 20 Mg Tablet, 40 MG PO Q2D IN THE EVENING - TAKES 40MG BID ON MONDAY, MONDAY, MONDAY, MONDAY Furosemide (Furosemide) 20 Mg Tablet, 20 MG PO Q2D IN THE EVENING - TAKES 40MG QAM AND 20MG QPM ON MON, MON, MON, AND 40MG BID ON , , MON, SUN Garlic (Garlic Oil) 1,000 Mg Capsule, 1,000 MG PO DAILY Glucosamine Sulfate Dipot Chlr (Glucosamine) 1,000 Mg Tablet, 2,000 MG PO DAILY Midodrine HCl (Midodrine HCl) 5 Mg Tablet, 5 MG PO TID Pantoprazole Sodium (Pantoprazole Sodium) 40 Mg Tablet.dr, 40 MG PO DAILY Potassium Chloride (Potassium Chloride) 10 Meq Tab.er.prt, 10 MEQ PO BID Rivaroxaban (Xarelto) 10 Mg Tablet, 10 MG PO QPM Simvastatin (Simvastatin) 20 Mg Tablet, 20 MG PO QHS Spironolactone (Spironolactone) 25 Mg Tablet, 25 MG PO DAILY Scheduled PRN Bisacodyl (Dulcolax) 5 Mg Tablet.dr, 5 MG PO DAILY PRN for CONSTIPATION Docusate Sodium (Colace) 100 Mg Capsule, 100 MG PO DAILY PRN for CONSTIPATION Polyethylene Glycol 3350 (Miralax) 119 Gm Powder, 17 GM PO DAILY PRN for CONSTIPATION Allergies Coded Allergies: No Known Allergies (Unverified , 05/10/17) A-FIB/CHADSVASC A-FIB History Current/History of A-Fib/PAF?: Yes Current PO Anticoag Therapy: Yes DENNY CAM MD Aug 15, 2019 19:07
[2019-08-15 22:00] VITALS: BP 138/74
[2019-08-15] MEDS: SIMVASTATIN 20 MG TAB PO SCH (22:20)
[2019-08-15] MEDS: NS 1,000 ML IV SCH (22:21)
[2019-08-15] MEDS: MORPHINE 4 MG/ML 1ML VIAL/SYRINGE (J2270) IV PRN (23:15)
[2019-08-16] MEDS: PIPERACILLIN/TAZOBACTAM SOD 2.25 GM in D5W MINI-BAG PLUS 50 ML IV SCH ×4 (00:10→18:27)
[2019-08-16 04:00] VITALS: BP 130/61
[2019-08-16 06:09] LABS: HEMOGLOBIN 9.5 g/dl (13.5-17.5); MEAN CORPUSCULAR HEMOGLOBIN 28.9 pg (27.0-33.0); MEAN CORPUSCULAR HGB CONC 29.7 g/dl (32.0-36.5); MEAN CORPUSCULAR VOLUME 97.3 fl (80.0-96.0); PLATELET COUNT, AUTOMATED 124 10^3/uL (150-450); RED BLOOD COUNT 3.29 10^6/uL (4.30-6.10); WHITE BLOOD COUNT 10.6 10^3/uL (4.0-10.0)
[2019-08-16 06:33] LABS: ALBUMIN 2.7 GM/DL (3.2-5.2); BILIRUBIN,TOTAL 2.6 MG/DL (0.2-1.0); CALCIUM LEVEL 8.2 MG/DL (8.8-10.2); CREATININE FOR GFR 1.81 MG/DL (0.70-1.30); GLOMERULAR FILTRATION RATE 37.9 (>35); MAGNESIUM LEVEL 1.7 MG/DL (1.8-2.4); POTASSIUM SERUM 4.2 MEQ/L (3.5-5.1); TOTAL PROTEIN 6.6 GM/DL (6.4-8.2)
[2019-08-16 08:00] VITALS: BP 132/59
[2019-08-16] MEDS: MAG SULF 1GM/100ML (MAG RUN) 1 GM in IV 1 EA IV SCH ×2 (08:33→10:21)
[2019-08-16] MEDS: ASPIRIN 81 MG ENTERIC TAB PO SCH (08:34)
[2019-08-16] MEDS: ASCORBIC ACID 500 MG TAB PO SCH (08:34)
[2019-08-16] MEDS: MIDODRINE 5 MG TAB PO SCH ×3 (08:34→17:13)
[2019-08-16] MEDS: PANTOPRAZOLE 40MG TAB (PROTONIX) PO SCH (08:34)
[2019-08-16 08:35] VITALS: BP 110/70
[2019-08-16] MEDS: MORPHINE 4 MG/ML 1ML VIAL/SYRINGE (J2270) IV PRN ×3 (08:40→17:12)
[2019-08-16 12:00] VITALS: BP 123/58
[2019-08-16] MEDS: NS 1,000 ML IV SCH (13:02)
[2019-08-16] MEDS ORDERED: RIVAROXABAN 10 MG TAB (XARELTO) PO SCH (18:00)
--- NOTE | 2019-08-16 18:54 | IPNPDOC ---
Date Seen The patient was seen on 08/16/19. Progress Note HISTORY OF PRESENT ILLNESS: 89-year-old male with past medical history of CHF, COPD, CVA, A. fib (on Xarelto) and open heart surgery (valve repair) presents to the ED with right upper quadrant abdominal pain for the past 1 day. Patient is a poor historian, at bedside to provide a medication, reports patient was well up until yesterday when he started expressing sudden abdominal pain, right upper quadrant, nonradiating, no associated symptoms, no alleviating or aggravating factors. He denies any nausea, vomiting or diarrhea. Workup in the ED, concerning for gallbladder disease, abdominal ultrasound showing a large gallbladder with cholelithiasis in the gallbladder neck. General surgery was contacted by the ED physician, who recommends IV antibiotics and admission. 08/16/2019 Patient seen in bed today, continues to have right upper quadrant abdominal pain, reports worsening yesterday, denies any nausea, vomiting or diarrhea. Patient has no additional complaints at this time, denies shortness of breath or chest pain. 10 point review of system was negative except for above HOME MEDICATIONS: Please see below. PHYSICAL EXAMINATION: VITAL SIGNS: Please see below. GENERAL: No distress, thin, frail HEENT: Normocephalic, atraumatic, moist mucous membranes NECK: Supple CARDIOVASCULAR EXAMINATION: Irregularly irregular RESPIRATORY EXAMINATION: Diminished, poor air movement, no wheezing ABDOMINAL EXAMINATION: Soft, right upper quadrant tenderness to palpation, nondistended, positive bowel sounds EXTREMITIES: Range of motion intact SKIN: No rash NEUROLOGICAL EXAMINATION: no focal deficits PSYCHIATRIC EXAMINATION: Calm and cooperative LABORATORY DATA: See below. IMAGING: Abdominal ultrasound with distended gallbladder and cholelithiasis in the gallbladder neck MICROBIOLOGY: Please see below. ASSESSMENT: 89-year-old male with multiple comorbidities presents with abdominal pain and imaging concerning for distended gallbladder with stone in the gallbladder neck. PLAN: 1. Abdominal pain. Abdominal imaging concerning for distended gallbladder and cholelithiasis in the gallbladder neck. Questionable biliary colic versus cholangitis versus cholecystitis Pain control, continue Zosyn. Gen. surgery recalled, discussed case with Dr. Galeana, who says that he will see the patient. 2. Acute renal failure. Likely related to poor by mouth intake and medication. No change with IV fluids, questionable baseline creatinine from chronic kidney disease, continue IV hydration, will monitor. 3. Chronic diastolic CHF. Status post open heart valve repair, patient and don't know which valve. Hold Lasix, spironolactone and HARVEY/ARB will monitor volume status with IV fluids 4. COPD Stable, continue home meds, supplemental oxygen to maintain O2 sats of 90%. 5. A. fib. Hold Xarelto in anticipation of possible surgical intervention. 6. Hyperlipidemia Continue simvastatin. DVT prophylaxis: SCDs GI prophylaxis: Home PPI VS, I&O, 24H, Fishbone Vital Signs/I&O Vital Signs Date Time Temp Pulse Resp B/P (MAP) Pulse Ox O2 Delivery O2 Flow Rate FiO2 08/16/19 17:22 16 08/16/19 12:00 98.4 76 123/58 (79) 93 Nasal Cannula 2.0 I&O- Last 24 Hours up to 6 AM 08/16/19 05:59 Intake Total 1410 ml Output Total 350 ml Balance 1060 ml Laboratory Data 24H LABS Laboratory Tests 2 08/15/19 19:24: Lactic Acid Followup at 4 Hours 3.1*H 08/16/19 05:47: Nucleated Red Blood Cells % (auto) 0.0, Anion Gap 5L, Glomerular Filtration Rate 37.9, Calcium Level 8.2L, Magnesium Level 1.7L, Total Bilirubin 2.6H, Aspartate Amino Transf (AST/SGOT) 19, Alanine Aminotransferase (ALT/SGPT) 14, Alkaline Phosphatase 94, Total Protein 6.6, Albumin 2.7#L, Albumin/Globulin Ratio 0.69L, Procalcitonin 0.90 CBC/BMP Laboratory Tests 08/16/19 05:47 Microbiology Microbiology 08/15/19 Blood Culture - Preliminary, Resulted No growth after 24 hours . All specim... 08/15/19 Blood Culture - Preliminary, Resulted No growth after 24 hours . All specim... DENNY CAM MD Aug 16, 2019 18:54
--- NOTE | 2019-08-16 19:32 | ECGEPIP ---
[facility] - ED Test Date: 2019-08-15 Pat Name: CAROLYNE MOSLEY Department: Room: - Gender: Male Literacy Specialist: : [id number] Requested By: Tushar Garvey Order Number: [id number] Reading MD: Tushar Garvey Measurements Intervals [place] Rate: 59 P: [place]: 0 QRS: 118 QRSD: 103 T: 93 QT: 402 QTc: 401 Interpretive Statements ATRIAL FIBRILLATION WITH SLOW VENTRICULAR RESPONSE POSSIBLE RIGHT VENTRICULAR HYPERTROPHY MODERATE ST DEPRESSION BASELINE WANDERING MAY AFFECT READING BASELINE ARTIFACT MAY AFFECT READING LOW QRS VOLTAGE LIMB LEADS CW 05/15/[address] T WAVE CHANGES Electronically Signed on 08-16-2019 19:32:10 EDT by Tushar Garvey
[2019-08-16] MEDS: SIMVASTATIN 20 MG TAB PO SCH (21:24)
[2019-08-16 22:00] VITALS: BP 124/80
[2019-08-17] VITALS (9 sets, daily range): BP systolic 104–130; BP diastolic 53–90
[2019-08-17] MEDS: NS 1,000 ML IV SCH ×3 (00:55→19:55)
[2019-08-17] MEDS: PIPERACILLIN/TAZOBACTAM SOD 2.25 GM in D5W MINI-BAG PLUS 50 ML IV SCH ×4 (00:55→19:55)
[2019-08-17 06:17] LABS: HEMATOCRIT 31.6 % (42.0-52.0); HEMOGLOBIN 9.1 g/dl (13.5-17.5); MEAN CORPUSCULAR HEMOGLOBIN 27.9 pg (27.0-33.0); MEAN CORPUSCULAR HGB CONC 28.8 g/dl (32.0-36.5); MEAN CORPUSCULAR VOLUME 96.9 fl (80.0-96.0); PLATELET COUNT, AUTOMATED 110 10^3/uL (150-450); RED BLOOD COUNT 3.26 10^6/uL (4.30-6.10); WHITE BLOOD COUNT 7.8 10^3/uL (4.0-10.0)
[2019-08-17 06:45] LABS: ALBUMIN 2.2 GM/DL (3.2-5.2); BILIRUBIN,TOTAL 2.8 MG/DL (0.2-1.0); CALCIUM LEVEL 8.6 MG/DL (8.8-10.2); CREATININE FOR GFR 1.87 MG/DL (0.70-1.30); GLOMERULAR FILTRATION RATE 36.5 (>35); MAGNESIUM LEVEL 2.3 MG/DL (1.8-2.4); PHOSPHORUS LEVEL 4.3 MG/DL (2.5-4.9); TOTAL PROTEIN 5.9 GM/DL (6.4-8.2)
[2019-08-17] MEDS: MIDODRINE 5 MG TAB PO SCH ×3 (08:20→16:00)
[2019-08-17] MEDS: ASPIRIN 81 MG ENTERIC TAB PO SCH (08:20)
[2019-08-17] MEDS: PANTOPRAZOLE 40MG TAB (PROTONIX) PO SCH (08:20)
[2019-08-17] MEDS: ASCORBIC ACID 500 MG TAB PO SCH (08:20)
[2019-08-17] MEDS: MORPHINE 4 MG/ML 1ML VIAL/SYRINGE (J2270) IV PRN (10:07)
[2019-08-17] MEDS ORDERED: BUPIVACAINE HCL 0.25% 30 ML VIAL As Ordered ONE (13:39)
--- NOTE | 2019-08-17 14:17 | CR ---
DATE OF CONSULTATION: 08/17/2019 REASON FOR CONSULTATION: Abdominal pain, possible acute cholecystitis. HISTORY OF PRESENT ILLNESS: The patient is an 89-year-old man who presented to the hospital on 08/15/2019 noting the onset of significant abdominal pain on the evening of 08/14/2019. He had described this as a severe pain on the right side and going around to his back. In the emergency department he was evaluated with some blood work and multiple imaging studies. His gallbladder ultrasound showed cholelithiasis with some distension of the gallbladder, but did not show significant gallbladder wall thickening. He likewise had a CT scan of the abdomen and pelvis that likewise confirmed a distended gallbladder with some cholelithiasis but again, gallbladder wall thickening was not seen to any significant degree. He was admitted to the hospitalist service and started on antibiotics. I am now consulted to evaluate the patient regarding the need for possible surgery. MEDICATIONS: Patient's usual medications include: - vitamin C - aspirin - Lumigan eye drops - Dulcolax tablets as needed for constipation - Colace - Lasix - garlic oil capsules - glucosamine - midodrine tablets - Protonix - MiraLax as needed - potassium chloride - Xarelto - simvastatin - spironolactone. ALLERGIES: Patient reports no known drug allergies. MEDICAL HISTORY: 1. Hypertension. 2. He has a history of coronary artery disease and is status post a coronary artery bypass grafting. 3. He has had a repair of his tricuspid valves at the same time as his bypass. 4. He has a history of atrial fibrillation and is on Xarelto. 5. He does have a history of congestive heart failure. 6. Chronic obstructive pulmonary disease. 7. He had a cerebrovascular accident years ago from which he has apparently no significant lasting sequelae. SURGICAL HISTORY: Significant for coronary artery bypass grafting with his pulmonic valve replacement. FAMILY HISTORY: Really noncontributory. He has a number of siblings and several are secondary to coronary artery disease. SOCIAL HISTORY: Patient is retired. He is a former smoker, but quit many years ago and has infrequent alcohol. REVIEW OF SYSTEMS: Reveals no history of chest pain or palpitations. He has had no recent neurologic changes. His abdominal discomfort is out of the ordinary for him, with no prior history and no known history of gallstones in the past. He has not had any dysuria or hematuria. He denies any melena or hematochezia. There are no significant bone or joint issues out of the ordinary for him. PHYSICAL EXAMINATION: Reveals a pleasant, elderly gentleman lying quietly in the hospital bed. His spouse and several other relatives, including his son and [id number], are present. He is alert and appears oriented. The skin is warm and dry. Sclerae are anicteric. Neck is supple. Chest exam shows a well-healed median sternotomy scar. Heart exam shows an irregularly irregular rhythm. The lungs show clear breath sounds bilaterally, though the breath sounds are distant. The abdomen is thin and flat. He has bowel sounds present in all four quadrants. He has a definite right inguinal hernia that contains bowel, but is readily reducible and nontender. There is also a hernia in the left lower quadrant that likewise appears to contain bowel. The abdomen is soft across the lower quadrants. In the upper abdomen, it feels somewhat more full and he does have tenderness to palpation in the right subcostal area at about the level of the anterior axillary line most prominently. I would describe the tenderness as moderate in intensity. Extremities show palpable pedal pulses with no peripheral edema bilaterally. LABORATORY STUDIES: Most recently, this morning show a white count of 8, hemoglobin of 9, hematocrit of 32 and a platelet count of 110,000. His chemistry profile, also from this morning, shows a sodium 142, potassium 4.0, chloride 109, CO2 of 28, BUN of 28, creatinine 1.87 and a glucose of 73. His total bilirubin is 2.8 with normal liver function tests otherwise. Total protein this morning was 5.9 with an albumin of 2.2. On the 08/15/2019, he had a PT of 22.6, with an INR of 2.02 and PTT of 40. His last dose of Xarelto was on the evening of the 08/14/2019. His gallbladder ultrasound and abdominal CT results are as noted in the history of the present illness. His CT scan actually showed multiple findings including some chronic scarring in the right lower lobe of the lung. There was a question of some mild cirrhosis raised based on some irregularity of the liver profile. His kidneys are somewhat atrophic bilaterally, he has diverticulosis throughout the colon, and his bilateral hernias were noted. IMPRESSION: 1. Acute cholecystitis secondary to cholelithiasis. 2. Congestive heart failure. 3. Coronary artery disease status post coronary artery bypass grafting. 4. Status post tricuspid valve repair. 5. Atrial fibrillation. 6. Hypertension. 7. Chronic obstructive pulmonary disease. 8. Status post cerebrovascular accident. PLAN: Patient and his family were counseled regarding the diagnosis of acute cholecystitis. He has been on antibiotics, but remains symptomatic with some abdominal discomfort and tenderness in the right upper quadrant. I have recommended that we proceed with a laparoscopic cholecystectomy. Indications for the surgery, as well as the risks and possible benefits were discussed. They are in agreement with proceeding with the surgery. Risks include, but are not limited to, bleeding, infection, scarring, adverse drug reaction, need for further surgery, injury of internal organ and hernia. Patient had an opportunity to ask questions and desires to proceed. We will add him onto the schedule for today and proceed. CLIF
[2019-08-17] MEDS ORDERED: LIDOCAINE 2% INJ 100 MG/5 ML SDV (FOR ANES.) As Ordered ONE (15:07)
[2019-08-17] MEDS ORDERED: ROCURONIUM BROMIDE 50 MG/5 ML VIAL As Ordered ONE (15:07)
[2019-08-17] MEDS ORDERED: PROPOFOL 200 MG/20 ML VIAL As Ordered ONE (15:07)
[2019-08-17] MEDS ORDERED: fentaNYL 250 MCG/5 ML INJECTION (J3010) As Ordered ONE (15:07)
[2019-08-17] MEDS ORDERED: dexameTHASONE 4 MG/ML 1ML VIAL (J1100) As Ordered ONE (15:09)
[2019-08-17] MEDS ORDERED: ONDANSETRON 4MG/2ML VIAL (J2405) As Ordered ONE (15:10)
[2019-08-17] MEDS ORDERED: VASOPRESSIN INJ 20 UNITS/ML VIAL As Ordered ONE (15:43)
[2019-08-17] MEDS ORDERED: PHENYLEPHRINE INJ 10MG/ML VIAL (J2370) As Ordered ONE (15:47)
[2019-08-17] MEDS ORDERED: ePHEDrine SULFATE 25 MG/5 ML(5MG/ML) SYRINGE As Ordered ONE (16:02)
[2019-08-17] MEDS ORDERED: PHENYLephrine HCL 500 MCG/5 ML (100MCG/ML) SYRINGE (J2370) As Ordered ONE (16:02)
[2019-08-17] MEDS ORDERED: SUGAMMADEX SODIUM 500 MG/5 ML VIAL (BRIDION) As Ordered ONE (16:23)
[2019-08-17] MEDS ORDERED: fentaNYL 100 MCG/2 ML INJECTION (J3010) IV PRN (17:45)
[2019-08-17] MEDS ORDERED: ONDANSETRON 4MG/2ML VIAL (J2405) IV PRN (17:45)
[2019-08-17] MEDS ORDERED: oxyCODONE 5MG TAB PO PRN (17:45)
--- NOTE | 2019-08-17 17:53 | IPNPDOC ---
Date Seen The patient was seen on 08/17/19. Progress Note HISTORY OF PRESENT ILLNESS: 89-year-old male with past medical history of CHF, COPD, CVA, A. fib (on Xarelto) and open heart surgery (valve repair) presents to the ED with right upper quadrant abdominal pain for the past 1 day. Patient is a poor historian, at bedside to provide a medication, reports patient was well up until yesterday when he started expressing sudden abdominal pain, right upper quadrant, nonradiating, no associated symptoms, no alleviating or aggravating factors. He denies any nausea, vomiting or diarrhea. Workup in the ED, concerning for gallbladder disease, abdominal ultrasound showing a large gallbladder with cholelithiasis in the gallbladder neck. General surgery was contacted by the ED physician, who recommends IV antibiotics and admission. 08/16/2019 Patient seen in bed today, continues to have right upper quadrant abdominal pain, reports worsening yesterday, denies any nausea, vomiting or diarrhea. Patient has no additional complaints at this time, denies shortness of breath or chest pain. 08/17/2019 Patient laying in bed, reports slight improvement in right upper quadrant pain, no additional complaints, denies nausea/vomiting or diarrhea. 10 point review of system was negative except for above HOME MEDICATIONS: Please see below. PHYSICAL EXAMINATION: VITAL SIGNS: Please see below. GENERAL: No distress, thin, frail HEENT: Normocephalic, atraumatic, moist mucous membranes NECK: Supple CARDIOVASCULAR EXAMINATION: Irregularly irregular RESPIRATORY EXAMINATION: Diminished, poor air movement, no wheezing ABDOMINAL EXAMINATION: Soft, right upper quadrant tenderness to palpation, nondistended, positive bowel sounds EXTREMITIES: Range of motion intact SKIN: No rash NEUROLOGICAL EXAMINATION: no focal deficits PSYCHIATRIC EXAMINATION: Calm and cooperative LABORATORY DATA: See below. IMAGING: Abdominal ultrasound with distended gallbladder and cholelithiasis in the gallbladder neck MICROBIOLOGY: Please see below. ASSESSMENT: 89-year-old male with multiple comorbidities presents with abdominal pain and imaging concerning for distended gallbladder with stone in the gallbladder neck. PLAN: 1. Cholecystitis Evaluated by Dr. Galeana, plan for cholecystectomy today. Pain control, continue Zosyn. 2. Chronic kidney disease Creatinine has remained stable despite IV therapy, likely baseline 3. Chronic diastolic CHF. Status post open heart valve repair, patient and don't know which valve. Hold Lasix, spironolactone and HARVEY/ARB Will restart above medications tomorrow if appropriate 4. COPD Stable, continue home meds, supplemental oxygen to maintain O2 sats of 90%. 5. A. fib. Hold Xarelto for cholecystectomy 6. Hyperlipidemia Continue simvastatin. DVT prophylaxis: SCDs GI prophylaxis: Home PPI VS, I&O, 24H, Fishbone Vital Signs/I&O Vital Signs Date Time Temp Pulse Resp B/P (MAP) Pulse Ox O2 Delivery O2 Flow Rate FiO2 08/17/19 17:40 77 16 124/58 (80) 100 Nasal Cannula 3 08/17/19 17:33 97.2 I&O- Last 24 Hours up to 6 AM 08/17/19 06:00 Intake Total 1950 ml Output Total 950 ml Balance 1000 ml Laboratory Data 24H LABS Laboratory Tests 2 08/17/19 05:48: Nucleated Red Blood Cells % (auto) 0.0, Anion Gap 5L, Glomerular Filtration Rate 36.5, Calcium Level 8.6L, Phosphorus Level 4.3, Magnesium Level 2.3, Total Bilirubin 2.8H, Aspartate Amino Transf (AST/SGOT) 17, Alanine Aminotransferase (ALT/SGPT) 13, Alkaline Phosphatase 79, Total Protein 5.9L, Albumin 2.2L, Albumin/Globulin Ratio 0.59L CBC/BMP Laboratory Tests 08/17/19 05:48 Microbiology Microbiology 08/15/19 Blood Culture - Preliminary, Resulted No Growth after 48 hours. All Specime... 08/15/19 Blood Culture - Preliminary, Resulted No Growth after 48 hours. All Specime... DENNY CAM MD Aug 17, 2019 17:53
[2019-08-17] MEDS: SIMVASTATIN 20 MG TAB PO SCH (19:55)
[2019-08-18] MEDS: PIPERACILLIN/TAZOBACTAM SOD 2.25 GM in D5W MINI-BAG PLUS 50 ML IV SCH ×4 (01:13→19:51)
[2019-08-18 02:00] VITALS: BP 116/58
[2019-08-18] MEDS: MORPHINE 4 MG/ML 1ML VIAL/SYRINGE (J2270) IV PRN ×2 (02:24→11:43)
[2019-08-18 05:54] LABS: HEMATOCRIT 28.5 % (42.0-52.0); HEMOGLOBIN 8.4 g/dl (13.5-17.5); MEAN CORPUSCULAR HEMOGLOBIN 28.9 pg (27.0-33.0); MEAN CORPUSCULAR HGB CONC 29.5 g/dl (32.0-36.5); MEAN CORPUSCULAR VOLUME 97.9 fl (80.0-96.0); PLATELET COUNT, AUTOMATED 100 10^3/uL (150-450); RED BLOOD COUNT 2.91 10^6/uL (4.30-6.10); WHITE BLOOD COUNT 6.6 10^3/uL (4.0-10.0)
[2019-08-18 06:00] VITALS: BP 131/64
[2019-08-18 06:16] LABS: BILIRUBIN,TOTAL 1.7 MG/DL (0.2-1.0); CALCIUM LEVEL 8.8 MG/DL (8.8-10.2); CREATININE FOR GFR 1.87 MG/DL (0.70-1.30); GLOMERULAR FILTRATION RATE 36.5 (>35); MAGNESIUM LEVEL 2.3 MG/DL (1.8-2.4); PHOSPHORUS LEVEL 4.9 MG/DL (2.5-4.9); POTASSIUM SERUM 4.5 MEQ/L (3.5-5.1)
[2019-08-18 06:53] LABS: ATYPICAL LYMPH 1 % (0-5); LYMPHOCYTES 8 % (16-44); MONOCYTES 2 % (0-5); NEUTROPHILS 81 % (28-66); PLATELET ESTIMATE DECREASED (NORMAL)
[2019-08-18 06:54] LABS: ANISOCYTOSIS 1+
[2019-08-18] MEDS: NORCO, ANEXSIA 5/325MG TABLET (HYDROcodone/ACETAMINOPHEN) PO PRN (06:55)
[2019-08-18] MEDS: MIDODRINE 5 MG TAB PO SCH ×3 (08:34→16:44)
[2019-08-18] MEDS: PANTOPRAZOLE 40MG TAB (PROTONIX) PO SCH (08:34)
[2019-08-18] MEDS: ASCORBIC ACID 500 MG TAB PO SCH (08:34)
[2019-08-18] MEDS: ASPIRIN 81 MG ENTERIC TAB PO SCH (08:35)
[2019-08-18] MEDS ORDERED: ONDANSETRON 4MG/2ML VIAL (J2405) IV PRN (09:00)
[2019-08-18 10:00] VITALS: BP 135/63
--- NOTE | 2019-08-18 11:43 | REP ---
Chest x-ray: Single view. History: Hypoxia Comparison study: August 15 2019. Findings: The patient is status post prior sternotomy and cardiac valve replacement. Cardiomegaly is observed. There is pleural thickening on the right. Bibasilar interstitial fibrosis pattern is seen. There is a surgical drain in the right upper quadrant of the abdomen. There is mild gaseous distension of the stomach and mid colon consistent with ileus. No new infiltrate is appreciated. Electronically Signed by Antony Atkins MD 08/18/2019 11:34 A
--- NOTE | 2019-08-18 11:45 | REP ---
KUB: Two views. History: Hypoxemia. Findings: There is a ileus pattern in the bowel gas with gaseous distension of the entire colon and multiple small bowel loops throughout the mid abdomen. There is a bowel loop overlying the ischium on the right consistent with the known hernia. There are degenerative changes in the lumbar spine. A surgical drain is noted in the right upper quadrant adjacent to some surgical clips. Impression: Moderate ileus pattern. Electronically Signed by Antony Atkins MD 08/18/2019 11:36 A
--- NOTE | 2019-08-18 12:01 | IPNPDOC ---
Date Seen The patient was seen on 08/18/19. Progress Note HISTORY OF PRESENT ILLNESS: 89-year-old male with past medical history of CHF, COPD, CVA, A. fib (on Xarelto) and open heart surgery (valve repair) presents to the ED with right upper quadrant abdominal pain for the past 1 day. Patient is a poor historian, at bedside to provide a medication, reports patient was well up until yesterday when he started expressing sudden abdominal pain, right upper quadrant, nonradiating, no associated symptoms, no alleviating or aggravating factors. He denies any nausea, vomiting or diarrhea. Workup in the ED, concerning for gallbladder disease, abdominal ultrasound showing a large gallbladder with cholelithiasis in the gallbladder neck. General surgery was contacted by the ED physician, who recommends IV antibiotics and admission. 08/16/2019 Patient seen in bed today, continues to have right upper quadrant abdominal pain, reports worsening yesterday, denies any nausea, vomiting or diarrhea. Patient has no additional complaints at this time, denies shortness of breath or chest pain. 08/17/2019 Patient laying in bed, reports slight improvement in right upper quadrant pain, no additional complaints, denies nausea/vomiting or diarrhea. 08/18/2019 Status post laparoscopic cholecystectomy yesterday, currently in bed, reports mild right upper quadrant pain, GARY drain in place draining serosanguineous fluid, has no additional complaints. He is passing flatus, no bowel movements since surgery. He reports eating some of his breakfast, denies any chest pain, vomiting or abdominal pain. 10 point review of system was negative except for above HOME MEDICATIONS: Please see below. PHYSICAL EXAMINATION: VITAL SIGNS: Please see below. GENERAL: No distress, thin, frail HEENT: Normocephalic, atraumatic, moist mucous membranes NECK: Supple CARDIOVASCULAR EXAMINATION: Irregularly irregular RESPIRATORY EXAMINATION: Diminished, poor air movement, no wheezing ABDOMINAL EXAMINATION: Mild right upper quadrant tenderness to palpation, GARY drain in place draining some serous fluid, distended abdomen compared to yesterday, hypoactive bowel sounds, no rebound or guarding. EXTREMITIES: Range of motion intact SKIN: No rash NEUROLOGICAL EXAMINATION: no focal deficits PSYCHIATRIC EXAMINATION: Calm and cooperative LABORATORY DATA: See below. IMAGING: Abdominal ultrasound with distended gallbladder and cholelithiasis in the gallbladder neck MICROBIOLOGY: Please see below. ASSESSMENT: 89-year-old male with multiple comorbidities presents with abdominal pain and imaging concerning for distended gallbladder with stone in the gallbladder neck. PLAN: 1. Cholecystitis Status post lap scopic cholecystectomy yesterday, currently stable without any complaints. Abdominal/chest x-ray performed for abdominal distention, no free air noted, m oderate ileus appreciated. Patient without any nausea, passing flatus, will continue liquid diet as tolerated, will consider NG tube insertion if needed. 2. Chronic kidney disease Will presume current creatinine is at baseline at it has remained steady despite IV fluids, will monitor. 3. Chronic diastolic CHF. Status post open heart valve repair, patient and don't know which valve. Restart home Lasix and spironolactone 4. COPD Stable, continue home meds, supplemental oxygen to maintain O2 sats of 90%. 5. A. fib. Will restart Xarelto when okay with surgery. 6. Hyperlipidemia Continue simvastatin. DVT prophylaxis: SCDs GI prophylaxis: Home PPI VS, I&O, 24H, Fishbone Vital Signs/I&O Vital Signs Date Time Temp Pulse Resp B/P (MAP) Pulse Ox O2 Delivery O2 Flow Rate FiO2 08/18/19 11:43 16 08/18/19 10:00 98.2 74 135/63 (87) 90 Nasal Cannula 3.0 I&O- Last 24 Hours up to 6 AM 08/18/19 06:00 Intake Total 3395 ml Output Total 850 ml Balance 2545 ml Laboratory Data 24H LABS Laboratory Tests 2 08/18/19 05:23: Nucleated Red Blood Cells % (auto) 0.0, Neutrophils 81H, Band Neutrophils 8, Lymphocytes (Manual) 8L, Monocytes (Manual) 2, Atypical Lymphocytes 1, Anisocytosis 1+, Macrocytosis 1+, Platelet Estimate DECREASED, Anion Gap 7L, Glomerular Filtration Rate 36.5, Calcium Level 8.8, Phosphorus Level 4.9, Magnesium Level 2.3, Total Bilirubin 1.7H, Aspartate Amino Transf (AST/SGOT) 29, Alanine Aminotransferase (ALT/SGPT) 16, Alkaline Phosphatase 65, Total Protein 6.0L, Albumin 2.0L, Albumin/Globulin Ratio 0.50L CBC/BMP Laboratory Tests 08/18/19 05:23 Microbiology Microbiology 08/15/19 Blood Culture - Preliminary, Resulted No Growth after 48 hours. All Specime... 08/15/19 Blood Culture - Preliminary, Resulted No Growth after 48 hours. All Specime... DENNY CAM MD Aug 18, 2019 12:01
[2019-08-18] MEDS: FUROSEMIDE 40 MG TAB PO SCH (12:44)
[2019-08-18] MEDS: SPIRONOLACTONE 25 MG TAB PO SCH (12:44)
[2019-08-18 14:00] VITALS: BP 133/83
[2019-08-18 18:00] VITALS: BP 150/73
[2019-08-18 18:54] LABS: TROPONIN I 0.05 NG/ML (< 0.10)
[2019-08-18] MEDS ORDERED: FUROSEMIDE 40 MG/4 ML VIAL (J1940) IV ONE (19:00)
[2019-08-18] MEDS: SIMVASTATIN 20 MG TAB PO SCH (21:13)
[2019-08-18 22:00] VITALS: BP 131/74
[2019-08-18 22:17] LABS: CALCIUM LEVEL 8.9 MG/DL (8.8-10.2); CREATININE FOR GFR 2.22 MG/DL (0.70-1.30); MAGNESIUM LEVEL 2.5 MG/DL (1.8-2.4); POTASSIUM SERUM 5.3 MEQ/L (3.5-5.1); TROPONIN I 0.07 NG/ML (< 0.10)
[2019-08-18] MEDS ORDERED: SOD POLYSTYRENE SULFONATE SUSP 15 GM/60 ML UD PO ONE (22:30)
[2019-08-19] VITALS (21 sets, daily range): BP systolic 73–126; BP diastolic 37–68
[2019-08-19] MEDS: PIPERACILLIN/TAZOBACTAM SOD 2.25 GM in D5W MINI-BAG PLUS 50 ML IV SCH ×4 (01:10→18:46)
--- NOTE | 2019-08-19 02:50 | IPNPDOC ---
Text Note Date of Service The patient was seen on 08/19/19. NOTE Transferring the patient to the ICU for bradycardia <35beats/minute. Asympto matic, no new symptoms, sleeping. Episodes are transient but occuring every few minutes and lasting ~1 minute each time. Nursing called me to bedside with concern about staying on med/surg with frequent episodes of bradycardia while full code. They had communicated with Dr. Guallpa earlier tonight about these episodes and he recommended a physician call if sustained at <35 where he has been dipping regularly now. Per nursing, Dr. Guallpa had also suggested measuring an abdominal pressure and possible stat echo. Will hold off on those interventions at this time. Will need to address goals of care with the patient and his established proxy during the day time as pacing has been previously discussed per EMR and he was deemed not a candidate. For now, will put pads in place and transfer to the ICU. Lytes were recently checked and were within normal limits. VS,Fishbone, I+O VS, Fishbone, I+O Laboratory Tests 08/18/19 05:23 08/18/19 21:29 Vital Signs Date Time Temp Pulse Resp B/P (MAP) Pulse Ox O2 Delivery O2 Flow Rate FiO2 08/18/19 22:00 98.4 70 16 131/74 (93) 94 Nasal Cannula 3.0 I&O- Last 24 Hours up to 6 AM 08/19/19 06:00 Intake Total 630 ml Output Total 675 ml Balance -45 ml JEFFERSON HAIRSTON MD Aug 19, 2019 02:50
[2019-08-19 05:23] LABS: HEMATOCRIT 29.9 % (42.0-52.0); HEMOGLOBIN 8.7 g/dl (13.5-17.5); MEAN CORPUSCULAR HEMOGLOBIN 28.4 pg (27.0-33.0); MEAN CORPUSCULAR HGB CONC 29.1 g/dl (32.0-36.5); MEAN CORPUSCULAR VOLUME 97.7 fl (80.0-96.0); PLATELET COUNT, AUTOMATED 104 10^3/uL (150-450); RED BLOOD COUNT 3.06 10^6/uL (4.30-6.10); WHITE BLOOD COUNT 7.4 10^3/uL (4.0-10.0)
[2019-08-19 05:48] LABS: ALBUMIN 1.9 GM/DL (3.2-5.2); BILIRUBIN,TOTAL 0.9 MG/DL (0.2-1.0); CALCIUM LEVEL 9.1 MG/DL (8.8-10.2); CREATININE FOR GFR 2.3 MG/DL (0.70-1.30); GLOMERULAR FILTRATION RATE 28.8 (>35); MAGNESIUM LEVEL 2.4 MG/DL (1.8-2.4); POTASSIUM SERUM 4.4 MEQ/L (3.5-5.1); TOTAL PROTEIN 6.2 GM/DL (6.4-8.2); TROPONIN I 0.04 NG/ML (< 0.10)
--- NOTE | 2019-08-19 06:43 | IPN ---
DATE OF SERVICE: 08/18/2019 HISTORY: The patient is now postoperative day #1 from a laparoscopic cholecystectomy for gangrenous cholecystitis. He has a single drain in place in the subhepatic space. He is out of bed to a chair today and taking some clear liquids. He was advanced to a regular diet this morning. Vital signs show that the patient has been afebrile over the past 24 hours. His pulse is in the 60s and 70s. Blood pressure is good. He has continued to require some supplemental oxygen with a most recent O2 sat of about 90 on 3 liters of nasal cannula oxygen. Intake and output show that yesterday he had 2900 recorded in with 900 recorded out. Urine output was 650 with drainage from his Gregory drain of 70 mL yesterday. He has had a 100 mL out his drain today. PHYSICAL EXAMINATION: The patient is sitting up at the bedside. He appears tired and somewhat frail, but is alert and seems oriented. Skin is warm and dry. Heart exam shows a regular rhythm and he is not tachycardiac. The lungs show acceptable breath sounds bilaterally. The abdomen is somewhat distended. He does have some bowel sounds present. The drain has some serous fluid primarily in the bottle. LABORATORY STUDIES: This morning showed a white count of 7, hemoglobin of 8, hematocrit of 28 and a platelet count of 100,000. His differential count showed 81% neutrophils, 8 bands, 8 lymphocytes and 2 monocytes. Chemistry profile today showed a sodium of 141, potassium 4.5, chloride 109, CO2 of 25, BUN of 37, creatinine 1.87 and a glucose of 116. His total bilirubin has dropped from 2.8 to 1.7 over the last day. His other liver function tests (LFTs) are normal. He had a chest x-ray and an abdominal x-ray today at the order of the hospitalist. The abdominal x-ray clearly shows gas throughout the small and large bowel. His drain is noted in the right upper quadrant. Chest x-ray showed some significant atelectasis, but no acute infiltrates. IMPRESSION: The patient is doing acceptably one day postoperative from a laparoscopic cholecystectomy for gangrenous cholecystitis. He has a lot of gas in the intestinal tract, but much of this is down distally in the colon. PLAN: The patient can continue his regular diet as tolerated. I see that the hospitalist has reordered some of his regular diuretics. I anticipate he may be a little fluid ahead at this time which could also effect his oxygenation, but much of his decreased O2 sats may be from his abdominal distention and I anticipate this should pass with passage of the intestinal gas. I did encourage him to be up moving as much as possible. CLIF
[2019-08-19] MEDS: SPIRONOLACTONE 25 MG TAB PO SCH (09:38)
[2019-08-19] MEDS: FUROSEMIDE 40 MG TAB PO SCH (09:39)
[2019-08-19] MEDS: ASPIRIN 81 MG ENTERIC TAB PO SCH (09:39)
[2019-08-19] MEDS: PANTOPRAZOLE 40MG TAB (PROTONIX) PO SCH (09:39)
[2019-08-19] MEDS: MIDODRINE 2.5 MG TAB PO SCH ×3 (09:39→16:57)
[2019-08-19] MEDS: ASCORBIC ACID 500 MG TAB PO SCH (09:39)
[2019-08-19] MEDS: ACETAMINOPHEN TAB 650MG DOSE (2X325MG) PO PRN (10:07)
--- NOTE | 2019-08-19 10:38 | RO ---
DATE OF PROCEDURE: 08/17/2019 PREOPERATIVE DIAGNOSIS: Acute cholecystitis secondary to cholelithiasis. POSTOPERATIVE DIAGNOSIS: Gangrenous cholecystitis secondary to cholelithiasis. PROCEDURE PERFORMED: Laparoscopic cholecystectomy. SURGEON: Dr. Casey Galeana. ANESTHESIA: General. INDICATIONS FOR PROCEDURE: The patient is an 89-year-old man who was admitted to the hospital on the 08/15/2019 with upper abdominal pain extending to the right flank. His evaluation showed slight elevations of his total bilirubin. A gallbladder ultrasound confirmed a distended gallbladder with gallstones and a CT scan likewise showed a distended gallbladder with gallstones. There was not significant inflammatory change of the gallbladder noted on either study. He was started on IV antibiotics and I was consulted to evaluate the patient. His examination revealed tenderness in the right upper quadrant consistent with acute cholecystitis and he is now for laparoscopic cholecystectomy. DESCRIPTION OF PROCEDURE: The patient was brought to the operating room and placed supine on the operating table. He was placed under general endotracheal anesthesia. The patient's abdomen was prepped and draped in a sterile fashion. 0.25% Marcaine was infiltrated at each of the trocar sites as needed. A short supraumbilical midline incision was made and a Veress needle was inserted. After positive hanging drop test, the abdomen was insufflated with carbon dioxide gas. An 11 mm port was placed over a 5 mm scope and this was advanced through the abdominal wall without difficulty. Initial examination showed some inflammatory changes in the right upper quadrant with omentum adherent up over the undersurface of the liver was some fibrillation exudate identified. The right lobe of the liver was not seen. The left was slightly nodular and fibrotic in appearance. A 5-mm port was placed in the left upper quadrant. A grasper was inserted and used to a pull some of the omentum down off of the right lobe of the liver. Extensive inflammatory changes were identified with a thick rind of exudate covering a portion of the liver and extending up between the liver and the diaphragm. The gallbladder was partially exposed and there were clearly what appeared to be gangrenous patches on the gallbladder which was still distended. Two 5 mm trocars were placed in the right upper quadrant. The patient was tilted to a slight reverse Trendelenburg position and rolled slightly to the left. The gallbladder was aspirated using an aspirating needle of a large amount of dark bile. The gallbladder wall was clearly quite thickened and the gallbladder was then grasped and elevated. The omentum was further peeled away using a combination of blunt and suction dissection. A large amount of gelatinous debris was removed from the surface of the liver and the diaphragm and placed in the small mound inferior to the transverse colon for later removal. Dissection was then carried out. The tissues were quite edematous and could be fractured away in some areas. The hook cautery was utilized to divide more intact structures. The cystic duct was clearly identified as was the cholecystic artery. The cystic duct was triply clipped with hemoclips and divided between the distal two clips. The artery was then doubly clipped and divided as well. The gallbladder was peeled away from the gallbladder bed primarily using blunt dissection, but cautery was used as needed. Several bleeding points were identified and controlled with the cautery. The gallbladder was completely freed. This was placed in an Endopouch. All of the piled debris was added into the pouch. This was then closed and set aside. The right upper quadrant was then copiously irrigated. He was found to have another peel of inflammatory debris on the posterior peritoneum of the subhepatic space and this was all peeled away from behind the liver and then removed through the 11-mm port. Final inspection revealed an excellent clearance of all the debris. I elected to place a drain in the subhepatic space. This was inserted through the 11-mm port and directed out through the lateral right upper quadrant 5 mm port site. This was placed across the subhepatic space to lie as far when as the left lobe of the liver. The patient was returned to a flat position. The irrigation was removed as thoroughly as possible. Final inspection revealed no evidence of any bleeding or bile leak. The abdomen was deflated and the trocars were all removed. It was necessary to extend the supraumbilical incision slightly to allow passage of the gallbladder through this site. The fascia was closed with interrupted simple sutures of #2-0 Vicryl. The drain was sutured to the skin with #2-0 silk and this site was covered with a chlorhexidine gluconate OpSite. The drain was connected to a [place] bulb. The skin incisions were closed with buried #5-0 Vicryl and Steri-Strips. Light dressings were applied. The patient tolerated the procedure well without apparent complication. He was awakened in the operating room, extubated and moved to the recovery room in stable condition. CLIF
--- NOTE | 2019-08-19 10:50 | ECGEPIP ---
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 Rule out prior IWMI. Marginal ST/T-wave abnormalities appear improved from 08/15/19. Electronically Signed on 08-19-2019 10:50:37 EDT by Michael Gross
--- NOTE | 2019-08-19 10:52 | ECGEPIP ---
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
--- NOTE | 2019-08-19 13:11 | IPN ---
DATE: 08/19/2019 HISTORY: The patient is now postop day #2 from a laparoscopic cholecystectomy for gangrenous cholecystitis. Early this morning he was apparently moved to the intensive care unit (ICU) because of concerns about bradycardia. He has otherwise been doing well from his surgical procedure. Vital signs show that his pulse is in the 40s currently. His most recent blood pressure was recorded as 97/46. Pulse oximetry on 2 liters of oxygen is 97. Intake and output show that yesterday he had 1500 recorded in with 900 recorded out, 155 of which was from his abdominal drain. So far today he has had 10 mL out of his drain. PHYSICAL EXAM: The patient is lying quietly in the hospital bed when I entered his room. He responds to voice and denies any significant discomfort. His pulse was approximately 45. Abdomen is mildly full. He has active bowel sounds. His drain has a small amount of serous fluid in the bulb only. There is some mild tympany to percussion in the epigastrium and right upper quadrant, but the abdomen is otherwise soft and without undue tenderness. Laboratory studies this morning show a white count of 7, hemoglobin of 9, hematocrit of 30 and a platelet count of 104,000. Chemistry profile shows sodium 135, potassium 4.4, chloride 106, CO2 of 21, BUN is 48 and creatinine is 2.3. Glucose is 117. Liver function tests are normal today with his total bilirubin down to 0.9 from 1.7 yesterday. His protein is 6.2 with an albumin of 1.9. IMPRESSION: The patient is doing well from his cholecystectomy for gangrenous cholecystitis. His drainage is diminishing nicely. PLAN: I will continue his abdominal drain one more day. Likely this can be removed tomorrow. He can take a diet as tolerated. The hospitalist is managing all of the other issues. CLIF
--- NOTE | 2019-08-19 15:01 | IPNPDOC ---
Date Seen The patient was seen on 08/19/19. Progress Note HISTORY OF PRESENT ILLNESS: 89-year-old male with past medical history of CHF, COPD, CVA, A. fib (on Xarelto) and open heart surgery (valve repair) presents to the ED with right upper quadrant abdominal pain for the past 1 day. Patient is a poor historian, at bedside to provide a medication, reports patient was well up until yesterday when he started expressing sudden abdominal pain, right upper quadrant, nonradiating, no associated symptoms, no alleviating or aggravating factors. He denies any nausea, vomiting or diarrhea. Workup in the ED, concerning for gallbladder disease, abdominal ultrasound showing a large gallbladder with cholelithiasis in the gallbladder neck. General surgery was contacted by the ED physician, who recommends IV antibiotics and admission. 08/16/2019 Patient seen in bed today, continues to have right upper quadrant abdominal pain, reports worsening yesterday, denies any nausea, vomiting or diarrhea. Patient has no additional complaints at this time, denies shortness of breath or chest pain. 08/17/2019 Patient laying in bed, reports slight improvement in right upper quadrant pain, no additional complaints, denies nausea/vomiting or diarrhea. 08/18/2019 Status post laparoscopic cholecystectomy yesterday, currently in bed, reports mild right upper quadrant pain, GARY drain in place draining serosanguineous fluid, has no additional complaints. He is passing flatus, no bowel movements since surgery. He reports eating some of his breakfast, denies any chest pain, vomiting or abdominal pain. 08/19/2019 Patient transferred to ICU overnight. Due to persistent bradycardia, in the 30s, upon reviewing patient's old charts. 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 Patient had a discussion regarding pacemaker in 2017, given patient's comorbidities, it was not thought to be necessary or helpful. Patient has remained asymptomatic while bradycardic, examined in the ICU today, without any complaints apart from mild epigastric tenderness, no other issues. She denies any shortness of breath, chest pain, nausea, vomiting or diarrhea at this time. He is passing flatus, no bowel movement since surgery. 10 point review of system was negative except for above HOME MEDICATIONS: Please see below. PHYSICAL EXAMINATION: VITAL SIGNS: Please see below. GENERAL: No distress, thin, frail HEENT: Normocephalic, atraumatic, moist mucous membranes NECK: Supple CARDIOVASCULAR EXAMINATION: Irregularly irregular RESPIRATORY EXAMINATION: Diminished, poor air movement, no wheezing ABDOMINAL EXAMINATION: Mild right upper quadrant tenderness to palpation, GARY drain in place draining some serous fluid, slight improvement in abdominal distention, hypoactive bowel sounds, no rebound or guarding. EXTREMITIES: Range of motion intact SKIN: No rash NEUROLOGICAL EXAMINATION: no focal deficits PSYCHIATRIC EXAMINATION: Calm and cooperative LABORATORY DATA: See below. IMAGING: Abdominal ultrasound with distended gallbladder and cholelithiasis in the gallbladder neck MICROBIOLOGY: Please see below. ASSESSMENT: 89-year-old male with multiple comorbidities presents with abdominal pain and imaging concerning for distended gallbladder with stone in the gallbladder neck. PLAN: 1. Cholecystitis Status post lap scopic cholecystectomy, postop day 2, currently stable without any complaints. Abdominal/chest x-ray performed for abdominal distention, no free air noted, moderate ileus appreciated, passing flatus, no bowel movements postop. GARY drain remains in place, plan for removal tomorrow. 2. Chronic kidney disease Creatinine trending up, likely due to diuretics, will monitor. 3. Chronic diastolic CHF. Status post open heart valve repair, patient and don't know which valve. Continue home Lasix and spironolactone 4. COPD Stable, continue home meds, supplemental oxygen to maintain O2 sats of 90%. 5. A. fib. Restart Xarelto 6. Hyperlipidemia Continue simvastatin. 7. Severe pulmonary hypertension. Noted from echo in 2017, right ventricular systolic pressure 70. Repeat TTE pending DVT prophylaxis: Xarelto GI prophylaxis: Home PPI VS, I&O, 24H, Fishbone Vital Signs/I&O Vital Signs Date Time Temp Pulse Resp B/P (MAP) Pulse Ox O2 Delivery O2 Flow Rate FiO2 08/19/19 08:01 45 16 94/59 (71) Nasal Cannula 2.0 08/19/19 06:00 97 08/19/19 03:30 97.2 I&O- Last 24 Hours up to 6 AM 08/19/19 06:00 Intake Total 750 ml Output Total 1085 ml Balance -335 ml Laboratory Data 24H LABS Laboratory Tests 2 08/18/19 18:10: Troponin I 0.05, HH-Tpl-K-Type Natriuretic Peptide 7821H 08/18/19 21:29: Troponin I 0.07#, Anion Gap 9, Glomerular Filtration Rate 30.0L, Calcium Level 8.9, Magnesium Level 2.5H 08/19/19 05:01: Troponin I 0.04#, Anion Gap 8, Glomerular Filtration Rate 28.8L, Calcium Level 9.1, Magnesium Level 2.4, Nucleated Red Blood Cells % (auto) 0.0, Phosphorus Level 5.0H, Total Bilirubin 0.9, Aspartate Amino Transf (AST/SGOT) 34, Alanine Aminotransferase (ALT/SGPT) 19, Alkaline Phosphatase 70, Total Protein 6.2L, Albumin 1.9L, Albumin/Globulin Ratio 0.44L CBC/BMP Laboratory Tests 08/18/19 21:29 08/19/19 05:01 Microbiology Microbiology 08/15/19 Blood Culture - Preliminary, Resulted No Growth after 72 hours. All specime... 08/15/19 Blood Culture - Preliminary, Resulted No Growth after 72 hours. All specime... DENNY CAM MD Aug 19, 2019 15:01
[2019-08-19] MEDS: RIVAROXABAN 10 MG TAB (XARELTO) PO SCH (16:57)
[2019-08-19] MEDS ORDERED: SLF 3 ML SYR IV PRN (18:00)
[2019-08-19] MEDS: SLF 3 ML SYR IV SCH (20:25)
[2019-08-19] MEDS: SIMVASTATIN 20 MG TAB PO SCH (20:25)
--- NOTE | 2019-08-19 21:33 | ECHO ---
DATE OF PROCEDURE: 08/19/2019 DATE OF : 1930 AGE: 89 GENDER: Male HEIGHT: 70 inches WEIGHT: 163 pounds BODY SURFACE AREA: 1.92 meters squared INPATIENT: U, room 3214 REFERRING PHYSICIAN: Dr. Lamine Guallpa INDICATION: Atrial fibrillation/abnormal EKG. MEASUREMENTS: 2D Measurements: RV: 4.6 cm LV: 3.9 cm Septum: 1.1 cm Posterior wall: 1.1 cm Aortic root: 3.2 cm LA: 4.2 cm LVEF: 45-50% DOPPLER MEASUREMENTS: AV: 1.32 meters per second LVOT: 0.6 meters per second MV-E: 58 Early mitral deceleration time: 161 milliseconds E-prime: 3.9, E/E prime ratio: 14.9 Pulmonary capillary wedge pressure: 13.3 mmHg PV: 0.6 meters per second Pulmonary artery acceleration time: 70 milliseconds RVSP: 59 mmHg IVC: 2.6 cm COMMENTS: Underlying atrial fibrillation with controlled to slightly slow ventricular response. No intraventricular conduction disturbance. M-mode and two-dimensional echocardiography was performed with pulsed, continuous wave, color flow and tissue Doppler studies. Normal left ventricular size and wall thickness with septal wall motion abnormality suspected to be due to right ventricular pressure overload with at least mild impairment of global resting systolic function. Mild to moderately dilated left atrium with Doppler evidence of mean left atrial pressure upper limits of normal. Prominently dilated right heart chambers with hypokinesis of the right ventricular free wall and Doppler evidence of moderately severe pulmonary hypertension. Prominently dilated inferior vena cava (IVC) with absent respiratory collapse in keeping with a significantly elevated central venous pressure/right heart failure. Moderate aortic valvular sclerosis without stenosis but mild-moderate insufficiency. Normal aortic dimensions. Mild thickening of the mitral valvular apparatus with mild-moderate insufficiency. 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 No separate intracardiac mass or pericardial effusion. MTDD
[2019-08-20] VITALS: BP 99/56
[2019-08-20] MEDS: PIPERACILLIN/TAZOBACTAM SOD 2.25 GM in D5W MINI-BAG PLUS 50 ML IV SCH ×4 (01:05→18:31)
[2019-08-20 04:00] VITALS: BP 88/52
[2019-08-20] MEDS: SLF 3 ML SYR IV SCH ×3 (06:11→22:13)
[2019-08-20 06:13] LABS: HEMATOCRIT 26.9 % (42.0-52.0); HEMOGLOBIN 8.3 g/dl (13.5-17.5); MEAN CORPUSCULAR HEMOGLOBIN 28.3 pg (27.0-33.0); MEAN CORPUSCULAR HGB CONC 30.9 g/dl (32.0-36.5); MEAN CORPUSCULAR VOLUME 91.8 fl (80.0-96.0); RED BLOOD COUNT 2.93 10^6/uL (4.30-6.10)
[2019-08-20 06:41] LABS: BILIRUBIN,TOTAL 1.1 MG/DL (0.2-1.0); CALCIUM LEVEL 8.6 MG/DL (8.8-10.2); CREATININE FOR GFR 2.39 MG/DL (0.70-1.30); GLOMERULAR FILTRATION RATE 27.5 (>35); MAGNESIUM LEVEL 2.2 MG/DL (1.8-2.4); PHOSPHORUS LEVEL 3.8 MG/DL (2.5-4.9); POTASSIUM SERUM 3.6 MEQ/L (3.5-5.1); TOTAL PROTEIN 6.1 GM/DL (6.4-8.2)
[2019-08-20 06:42] LABS: PLATELET COUNT, AUTOMATED 94 10^3/uL (150-450)
[2019-08-20 08:00] VITALS: BP 125/78
[2019-08-20] MEDS: FUROSEMIDE 40 MG TAB PO SCH (08:07)
[2019-08-20] MEDS: ASCORBIC ACID 500 MG TAB PO SCH (08:18)
[2019-08-20] MEDS: ASPIRIN 81 MG ENTERIC TAB PO SCH (08:18)
[2019-08-20] MEDS: SPIRONOLACTONE 25 MG TAB PO SCH (08:18)
[2019-08-20] MEDS: PANTOPRAZOLE 40MG TAB (PROTONIX) PO SCH (08:18)
[2019-08-20] MEDS: MIDODRINE 2.5 MG TAB PO SCH ×3 (08:18→16:32)
[2019-08-20 12:00] VITALS: BP 133/66
--- NOTE | 2019-08-20 12:35 | IPNPDOC ---
Text Note Date of Service The patient was seen on 08/20/19. NOTE No acute events overnight. Tolerating diet. Denies problems with nausea, emesis, fevers, or pains. VSSAF NAD abd - soft, nt, nd, dressings c/d/i, drain in RUQ serous labs - below A) 89y/o male s/p lap radha for gangrenous GB P) reg diet PT monitor LFTs possible d/c drain tomorrow Lawrence Barrett DO VS,Fishbone, I+O VS, Fishbone, I+O Laboratory Tests 08/20/19 05:26 Vital Signs Date Time Temp Pulse Resp B/P (MAP) Pulse Ox O2 Delivery O2 Flow Rate FiO2 08/20/19 12:00 97.2 82 20 133/66 (88) 98 Room Air 08/19/19 08:01 2.0 I&O- Last 24 Hours up to 6 AM 08/20/19 06:00 Intake Total 1310 ml Output Total 845 ml Balance 465 ml KINGA BARRETT DO Aug 20, 2019 12:35
[2019-08-20] MEDS: ACETAMINOPHEN TAB 650MG DOSE (2X325MG) PO PRN (15:00)
--- NOTE | 2019-08-20 15:21 | IPNPDOC ---
Text Note Date of Service The patient was seen on 08/20/19. NOTE Subjective: No any acute events overnight. Patient complains on the mild abd ominal discomfort. Patient denies fever, chills, nausea, vomiting, shortness of breath, diarrhea Objective:GENERAL: No distress HEENT: Normocephalic, atraumatic, moist mucous membranes NECK: Supple CARDIOVASCULAR EXAMINATION: Irregularly irregular RESPIRATORY EXAMINATION: Diminished, poor air movement, no wheezing ABDOMINAL EXAMINATION: Mild right upper quadrant tenderness to palpation, GARY drain in place draining some serous fluid, slight improvement in abdominal distention, hypoactive bowel sounds, no rebound or guarding. EXTREMITIES: Range of motion intact, right lower extremity +2, left lower extremity +1 SKIN: No rash NEUROLOGICAL EXAMINATION: no focal deficits DATE OF PROCEDURE: 08/19/2019 DATE OF : 1930 AGE: 89 GENDER: Male HEIGHT: 70 inches WEIGHT: 163 pounds BODY SURFACE AREA: 1.92 meters squared INPATIENT: PCU, room 3214 REFERRING PHYSICIAN: Dr. Lamine Guallpa INDICATION: Atrial fibrillation/abnormal EKG. MEASUREMENTS: 2D Measurements: RV: 4.6 cm LV: 3.9 cm Septum: 1.1 cm Posterior wall: 1.1 cm Aortic root: 3.2 cm LA: 4.2 cm LVEF: 45-50% DOPPLER MEASUREMENTS: AV: 1.32 meters per second LVOT: 0.6 meters per second MV-E: 58 Early mitral deceleration time: 161 milliseconds E-prime: 3.9, E/E prime ratio: 14.9 Pulmonary capillary wedge pressure: 13.3 mmHg PV: 0.6 meters per second Pulmonary artery acceleration time: 70 milliseconds RVSP: 59 mmHg IVC: 2.6 cm COMMENTS: Underlying atrial fibrillation with controlled to slightly slow ventricular response. No intraventricular conduction disturbance. M-mode and two-dimensional echocardiography was performed with pulsed, continuous wave, color flow and tissue Doppler studies. Normal left ventricular size and wall thickness with septal wall motion abnormality suspected to be due to right ventricular pressure overload with at least mild impairment of global resting systolic function. Mild to moderately dilated left atrium with Doppler evidence of mean left atrial pressure upper limits of normal. Prominently dilated right heart chambers with hypokinesis of the right ventricular free wall and Doppler evidence of moderately severe pulmonary hypertension. Prominently dilated inferior vena cava (IVC) with absent respiratory collapse in keeping with a significantly elevated central venous pressure/right heart failure. Moderate aortic valvular sclerosis without stenosis but mild-moderate insufficiency. Normal aortic dimensions. Mild thickening of the mitral valvular apparatus with mild-moderate insufficiency. 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 ASSESSMENT: 89-year-old male with multiple comorbidities presents with abdominal pain and imaging concerning for distended gallbladder with stone in the gallbladder neck. 1. Cholecystitis Status post lap scopic cholecystectomy, postop day 3 GARY drain remains in place, 150 mL of serosanguineous fluid Surgical team follows him 2. Chronic kidney disease/ DULCE Creatinine trending up, Lasix on hold for today 3. Chronic diastolic CHF. Status post open heart valve repair, presumably from previous records its tricuspid valve Continue spironolactone, hold Lasix due to DULCE 4. COPD Stable, continue home meds, supplemental oxygen to maintain O2 sats of 90%. 5. A. fib. Heart rate is under control Restarted Xarelto 6. Hyperlipidemia Continue simvastatin. 7. Severe pulmonary hypertension. Noted from echo in 2017, right ventricular systolic pressure 70. 8. Right leg edema Doppler ultrasound to rule out DVT DVT prophylaxis: Xarelto GI prophylaxis: Home PPI VS,Fishbone, I+O VS, Fishbone, I+O Laboratory Tests 08/20/19 05:26 Vital Signs Date Time Temp Pulse Resp B/P (MAP) Pulse Ox O2 Delivery O2 Flow Rate FiO2 08/20/19 12:00 97.2 82 20 133/66 (88) 98 Room Air 08/19/19 08:01 2.0 I&O- Last 24 Hours up to 6 AM 08/20/19 06:00 Intake Total 1310 ml Output Total 845 ml Balance 465 ml BESSIE GUZMÁN DO Aug 20, 2019 15:21
[2019-08-20 16:00] VITALS: BP 94/54
--- NOTE | 2019-08-20 18:10 | REP ---
Clinical: Right lower extremity pain . Technique: Sewell scale and color Doppler evaluation using linear high frequency transducer. Findings: Ultrasound examination of the right lower extremity deep venous structures from the common femoral vein to the popliteal vein demonstrates normal compressibility flow and wave patterns in response to respiration and augmentation. There is no evidence for deep venous thrombosis. Impression: No evidence for deep venous thrombosis. Electronically Signed by Ankit Casillas MD 08/20/2019 06:01 P
[2019-08-20] MEDS: RIVAROXABAN 10 MG TAB (XARELTO) PO SCH (18:31)
[2019-08-20 20:00] VITALS: BP 127/63
[2019-08-20] MEDS: SIMVASTATIN 20 MG TAB PO SCH (20:14)
[2019-08-20] MEDS ORDERED: METOPROLOL TART 12.5 MG PER 1/2 TAB PO SCH (21:00)
[2019-08-21] VITALS (7 sets, daily range): BP systolic 102–155; BP diastolic 50–81
[2019-08-21] MEDS: PIPERACILLIN/TAZOBACTAM SOD 2.25 GM in D5W MINI-BAG PLUS 50 ML IV SCH ×4 (00:06→18:05)
[2019-08-21 05:50] LABS: EOS # 0.1 10^3/uL (0.0-0.5); EOS % 1.4 % (0.0-3.0); HEMATOCRIT 29.3 % (42.0-52.0); HEMOGLOBIN 9.2 g/dl (13.5-17.5); LYMPH # 0.4 10^3/uL (1.5-5.0); LYMPH % 6.4 % (24.0-44.0); MEAN CORPUSCULAR HGB CONC 31.4 g/dl (32.0-36.5); MEAN CORPUSCULAR VOLUME 89.3 fl (80.0-96.0); MONO # 0.4 10^3/uL (0.0-0.8); MONO % 6.6 % (0.0-5.0); NEUTROPHILS # 5.3 10^3/uL (1.5-8.5); PLATELET COUNT, AUTOMATED 105 10^3/uL (150-450); RED BLOOD COUNT 3.28 10^6/uL (4.30-6.10); WHITE BLOOD COUNT 6.2 10^3/uL (4.0-10.0)
[2019-08-21] MEDS: SLF 3 ML SYR IV SCH ×3 (05:50→22:48)
[2019-08-21 06:09] LABS: MAGNESIUM LEVEL 2.2 MG/DL (1.8-2.4)
[2019-08-21 07:00] LABS: ALBUMIN 2.1 GM/DL (3.2-5.2); BILIRUBIN,TOTAL 1.5 MG/DL (0.2-1.0); CALCIUM LEVEL 8.7 MG/DL (8.8-10.2); CREATININE FOR GFR 2.19 MG/DL (0.70-1.30); GLOMERULAR FILTRATION RATE 30.5 (>35); POTASSIUM SERUM 3.2 MEQ/L (3.5-5.1); TOTAL PROTEIN 6.5 GM/DL (6.4-8.2)
[2019-08-21] MEDS: ASPIRIN 81 MG ENTERIC TAB PO SCH (08:20)
[2019-08-21] MEDS: PANTOPRAZOLE 40MG TAB (PROTONIX) PO SCH (08:21)
[2019-08-21] MEDS: MIDODRINE 2.5 MG TAB PO SCH ×3 (08:21→16:58)
[2019-08-21] MEDS: SPIRONOLACTONE 25 MG TAB PO SCH (08:21)
[2019-08-21] MEDS: ASCORBIC ACID 500 MG TAB PO SCH (08:21)
[2019-08-21] MEDS ORDERED: POTASSIUM CHLORIDE 10 MEQ SR TABLET PO ONE (09:00)
--- NOTE | 2019-08-21 10:31 | IPNPDOC ---
Text Note Date of Service The patient was seen on 08/21/19. NOTE Subjective: Patient complains of increased frequency of urination overnight, denied any pain during urination. Patient denies fever, chills, nausea, vomiting, shortness of breath, palpitation, diarrhea Objective: GENERAL: No distress HEENT: Normocephalic, atraumatic, moist mucous membranes NECK: Supple CARDIOVASCULAR EXAMINATION: Irregularly irregular RESPIRATORY EXAMINATION: Diminished, poor air movement, no wheezing ABDOMINAL EXAMINATION: Mild right upper quadrant tenderness to palpation, GARY drain in place draining some serous fluid, slight improvement in abdominal distention, hypoactive bowel sounds, no rebound or guarding. EXTREMITIES: Range of motion intact, right lower extremity +2, left lower extremity +1 SKIN: No rash ASSESSMENT: 89-year-old male with multiple comorbidities presents with abdominal pain and imaging concerning for distended gallbladder with stone in the gallbladder neck. Lap chol was done By Dr Galeana 1. Cholecystitis Status post lap scopic cholecystectomy, postop day 4 GARY drain remains in place,75 mL of serosanguineous fluid Surgical team follows him 2. Chronic kidney disease/ DULCE Creatinine trending down, Lasix on hold for today Will resume tomorrow 3. Chronic diastolic CHF. Status post open heart valve repair, presumably from previous records its tricuspid valve Continue spironolactone, hold Lasix due to DULCE 4. COPD Stable, continue home meds, supplemental oxygen to maintain O2 sats of 90%. 5. A. fib. Heart rate is under control Restarted Xarelto 6. Hyperlipidemia Continue simvastatin. 7. Severe pulmonary hypertension. Noted from echo in 2017, right ventricular systolic pressure 70. 8. Right leg edema Doppler ultrasound negative for DVT Dysuria Most likely secondary to ATN resolution versus BPH dysuria Flomax UA DVT prophylaxis: Xarelto GI prophylaxis: Home PPI VS,Fishbone, I+O VS, Fishbone, I+O Laboratory Tests 08/21/19 05:09 Vital Signs Date Time Temp Pulse Resp B/P (MAP) Pulse Ox O2 Delivery O2 Flow Rate FiO2 08/21/19 08:00 97.7 69 16 142/50 (80) 99 Room Air 08/19/19 08:01 2.0 I&O- Last 24 Hours up to 6 AM 08/21/19 05:59 Intake Total 1120 ml Output Total 920 ml Balance 200 ml DROZHZHIN,BESSIE DO Aug 21, 2019 10:31
[2019-08-21] MEDS: TAMSULOSIN 0.4 MG CAP PO SCH ×2 (11:53→22:25)
[2019-08-21 12:23] LABS: APPEARANCE, URINE HAZY (CLEAR); BACTERIA, URINE AUTO NEGATIVE (NEGATIVE); BILIRUBIN, URINE AUTO NEGATIVE (NEGATIVE); BLOOD, URINE BLOOD NEGATIVE (NEGATIVE); COLOR, URINE YELLOW (YELLOW); GLUCOSE, URINE (UA) AUTO NEGATIVE (NEGATIVE); KETONE, URINE AUTO NEGATIVE (NEGATIVE); LEUKOCYTE ESTERASE, URINE AUTO NEGATIVE (NEGATIVE); NITRITE, URINE AUTO NEGATIVE (NEGATIVE); PROTEIN, URINE AUTO NEGATIVE (NEGATIVE); RBC, URINE AUTO 1 /HPF (0-3); SPECIFIC GRAVITY URINE AUTO 1.016 (1.002-1.035); SQUAMOUS EPITHELIAL CELL UR AU 0 /HPF (0-6); UROBILINOGEN, URINE AUTO 0.2 mg/dL (0.0-2.0); WBC, URINE AUTO 1 /HPF (0-3)
[2019-08-21] MEDS: RIVAROXABAN 10 MG TAB (XARELTO) PO SCH (16:59)
--- NOTE | 2019-08-21 22:15 | IPNPDOC ---
Text Note Date of Service The patient was seen on 08/21/19. NOTE No acute events overnight. Tolerating diet. Denies problems with nausea, emesis, fevers, or pains. VSSAF NAD abd - soft, nt, nd, dressings c/d/i, drain in RUQ serous labs - below A) 89y/o male s/p lap radha for gangrenous GB P) reg diet PT monitor LFTs d/c drain Lawrence Barrett DO VS,Fishbone, I+O VS, Fishbone, I+O Laboratory Tests 08/21/19 05:09 Vital Signs Date Time Temp Pulse Resp B/P (MAP) Pulse Ox O2 Delivery O2 Flow Rate FiO2 08/21/19 20:00 98.1 81 18 116/60 (78) 95 Room Air 08/19/19 08:01 2.0 I&O- Last 24 Hours up to 6 AM 08/21/19 06:00 Intake Total 1120 ml Output Total 920 ml Balance 200 ml KINGA BARRETT DO Aug 21, 2019 22:15
[2019-08-21] MEDS: SIMVASTATIN 20 MG TAB PO SCH (22:25)
[2019-08-21] MEDS: NORCO, ANEXSIA 5/325MG TABLET (HYDROcodone/ACETAMINOPHEN) PO PRN (22:26)
[2019-08-22] MEDS: PIPERACILLIN/TAZOBACTAM SOD 2.25 GM in D5W MINI-BAG PLUS 50 ML IV SCH ×4 (01:36→18:25)
[2019-08-22 04:00] VITALS: BP 119/56
[2019-08-22 05:35] LABS: BASO % 0.1 % (0.0-1.0); EOS # 0.1 10^3/uL (0.0-0.5); EOS % 0.8 % (0.0-3.0); HEMATOCRIT 27.9 % (42.0-52.0); HEMOGLOBIN 8.8 g/dl (13.5-17.5); LYMPH # 0.4 10^3/uL (1.5-5.0); LYMPH % 4.4 % (24.0-44.0); MEAN CORPUSCULAR HEMOGLOBIN 28.2 pg (27.0-33.0); MEAN CORPUSCULAR HGB CONC 31.5 g/dl (32.0-36.5); MEAN CORPUSCULAR VOLUME 89.4 fl (80.0-96.0); MONO # 0.4 10^3/uL (0.0-0.8); MONO % 4.5 % (0.0-5.0); NEUTROPHILS # 8.8 10^3/uL (1.5-8.5); NEUTROPHILS % 89.1 % (36.0-66.0); RED BLOOD COUNT 3.12 10^6/uL (4.30-6.10); WHITE BLOOD COUNT 9.9 10^3/uL (4.0-10.0)
[2019-08-22 05:36] LABS: PLATELET COUNT, AUTOMATED 96 10^3/uL (150-450)
[2019-08-22 06:06] LABS: ALBUMIN 1.8 GM/DL (3.2-5.2); BILIRUBIN,TOTAL 1.5 MG/DL (0.2-1.0); CALCIUM LEVEL 8.4 MG/DL (8.8-10.2); CREATININE FOR GFR 1.89 MG/DL (0.70-1.30); GLOMERULAR FILTRATION RATE 36.1 (>35); MAGNESIUM LEVEL 2.2 MG/DL (1.8-2.4); POTASSIUM SERUM 3.5 MEQ/L (3.5-5.1); TOTAL PROTEIN 5.9 GM/DL (6.4-8.2)
[2019-08-22] MEDS: SLF 3 ML SYR IV SCH ×3 (06:45→20:39)
[2019-08-22 08:00] VITALS: BP 118/56
[2019-08-22] MEDS: ASPIRIN 81 MG ENTERIC TAB PO SCH (08:28)
[2019-08-22] MEDS: ASCORBIC ACID 500 MG TAB PO SCH (08:28)
[2019-08-22] MEDS: MIDODRINE 2.5 MG TAB PO SCH ×3 (08:28→16:02)
[2019-08-22] MEDS: TAMSULOSIN 0.4 MG CAP PO SCH ×2 (08:28→20:36)
[2019-08-22] MEDS: PANTOPRAZOLE 40MG TAB (PROTONIX) PO SCH (08:28)
[2019-08-22] MEDS: SPIRONOLACTONE 25 MG TAB PO SCH (08:28)
[2019-08-22 12:00] VITALS: BP 136/67
[2019-08-22 16:00] VITALS: BP 139/55
[2019-08-22] MEDS ORDERED: POTASSIUM CHLORIDE 10 MEQ SR TABLET PO ONE (16:45)
--- NOTE | 2019-08-22 16:50 | IPNPDOC ---
Text Note Date of Service The patient was seen on 08/22/19. NOTE Subjective: No any acute events overnight. Patient denies fever, chills, nausea, vomiting, shortness of breath, palpitation, diarrhea Objective: GENERAL: No distress HEENT: Normocephalic, atraumatic, moist mucous membranes NECK: Supple CARDIOVASCULAR EXAMINATION: Irregularly irregular RESPIRATORY EXAMINATION: Diminished, poor air movement, no wheezing ABDOMINAL EXAMINATION: Mild right upper quadrant tenderness to palpation, no rebound or guarding. EXTREMITIES: Range of motion intact, right lower extremity +2, left lower extremity +1 SKIN: No rash ASSESSMENT: 89-year-old male with multiple comorbidities presents with abdominal pain and imaging concerning for distended gallbladder with stone in the gallbladder neck. Lap chol was done By Dr Galeana 1. Cholecystitis Status post lap scopic cholecystectomy, was found to have an gangrenous gallbladder postop day 5 GARY drain removed Surgical team follows him 2. Chronic kidney disease/ DULCE Improved Creatinine trending down 3. Chronic diastolic CHF. Status post open heart valve repair, presumably from previous records its tricuspid valve Continue spironolactone, continue Lasix 4. COPD Stable, continue home meds, supplemental oxygen to maintain O2 sats of 90%. 5. A. fib. Heart rate is under control Restarted Xarelto 6. Hyperlipidemia Continue simvastatin. 7. Severe pulmonary hypertension. Noted from echo in 2017, right ventricular systolic pressure 70. 8. Right leg edema Doppler ultrasound negative for DVT Dysuria Markedly improved Most likely secondary to ATN resolution versus BPH dysuria Flomax DVT prophylaxis: Xarelto VS,Fishbone, I+O VS, Fishbone, I+O Laboratory Tests 08/22/19 05:17 Vital Signs Date Time Temp Pulse Resp B/P (MAP) Pulse Ox O2 Delivery O2 Flow Rate FiO2 08/22/19 16:00 98.4 72 18 139/55 (83) 93 Room Air 08/19/19 08:01 2.0 I&O- Last 24 Hours up to 6 AM 08/22/19 06:00 Intake Total 350 ml Output Total 610 ml Balance -260 ml BESSIE GUZMÁN DO Aug 22, 2019 16:50
[2019-08-22] MEDS: RIVAROXABAN 10 MG TAB (XARELTO) PO SCH (17:42)
[2019-08-22 18:22] LABS: CLOSTRIDIUM DIFFICILE PCR POSITIVE (NEGATIVE)
[2019-08-22 20:00] VITALS: BP 108/56
[2019-08-22] MEDS: SIMVASTATIN 20 MG TAB PO SCH (20:36)
[2019-08-22] MEDS: VANCOMYCIN ORAL SOL 250MG/5ML ORAL SYRINGE PO SCH (20:36)
[2019-08-23] VITALS: BP 116/62
[2019-08-23] MEDS: NORCO, ANEXSIA 5/325MG TABLET (HYDROcodone/ACETAMINOPHEN) PO PRN (00:56)
[2019-08-23] MEDS: VANCOMYCIN ORAL SOL 250MG/5ML ORAL SYRINGE PO SCH ×5 (01:02→23:53)
[2019-08-23 04:00] VITALS: BP 120/68
[2019-08-23 05:39] LABS: BASO % 0.1 % (0.0-1.0); EOS # 0.1 10^3/uL (0.0-0.5); EOS % 0.9 % (0.0-3.0); HEMATOCRIT 26.8 % (42.0-52.0); HEMOGLOBIN 8.2 g/dl (13.5-17.5); LYMPH # 0.5 10^3/uL (1.5-5.0); LYMPH % 4.3 % (24.0-44.0); MEAN CORPUSCULAR HGB CONC 30.6 g/dl (32.0-36.5); MEAN CORPUSCULAR VOLUME 91.5 fl (80.0-96.0); MONO # 0.5 10^3/uL (0.0-0.8); MONO % 3.7 % (0.0-5.0); NEUTROPHILS # 11.1 10^3/uL (1.5-8.5); NEUTROPHILS % 90.3 % (36.0-66.0); RED BLOOD COUNT 2.93 10^6/uL (4.30-6.10); WHITE BLOOD COUNT 12.3 10^3/uL (4.0-10.0)
[2019-08-23 05:40] LABS: PLATELET COUNT, AUTOMATED 98 10^3/uL (150-450)
[2019-08-23] MEDS: SLF 3 ML SYR IV SCH ×3 (05:57→21:09)
[2019-08-23 06:09] LABS: ALBUMIN 1.9 GM/DL (3.2-5.2); BILIRUBIN,TOTAL 1.1 MG/DL (0.2-1.0); CALCIUM LEVEL 8.7 MG/DL (8.8-10.2); CREATININE FOR GFR 1.49 MG/DL (0.70-1.30); GLOMERULAR FILTRATION RATE 47.5 (>35); MAGNESIUM LEVEL 2.2 MG/DL (1.8-2.4); POTASSIUM SERUM 4.2 MEQ/L (3.5-5.1)
[2019-08-23 08:00] VITALS: BP 144/60
[2019-08-23] MEDS: TAMSULOSIN 0.4 MG CAP PO SCH ×2 (09:54→21:09)
[2019-08-23] MEDS: ASPIRIN 81 MG ENTERIC TAB PO SCH (09:54)
[2019-08-23] MEDS: SPIRONOLACTONE 25 MG TAB PO SCH (09:54)
[2019-08-23] MEDS: MIDODRINE 2.5 MG TAB PO SCH ×3 (09:54→17:32)
[2019-08-23] MEDS: FUROSEMIDE 40 MG TAB PO SCH (09:54)
[2019-08-23] MEDS: ASCORBIC ACID 500 MG TAB PO SCH (09:54)
[2019-08-23 12:00] VITALS: BP 106/73
[2019-08-23 16:00] VITALS: BP 143/63
[2019-08-23] MEDS: RIVAROXABAN 10 MG TAB (XARELTO) PO SCH (17:32)
--- NOTE | 2019-08-23 18:44 | IPNPDOC ---
Text Note Date of Service The patient was seen on 08/23/19. NOTE Subjective: No any acute events overnight. Patient complains of poor appetite, sad mood, lack of motivation to do physical therapy. He had a few episodes of diarrhea overnight Objective: GENERAL: No distress HEENT: Normocephalic, atraumatic, moist mucous membranes NECK: Supple CARDIOVASCULAR EXAMINATION: Irregularly irregular RESPIRATORY EXAMINATION: Diminished, poor air movement, no wheezing ABDOMINAL EXAMINATION: Moderately distended, no rebound or guarding. EXTREMITIES: Range of motion intact, right lower extremity +2, left lower extremity +1 SKIN: No rash ASSESSMENT: 89-year-old male with multiple comorbidities presents with abdominal pain and imaging concerning for distended gallbladder with stone in the gallbladder neck. Lap chol was done By Dr Galeana. Patient received treatment with Zosyn IV. On 08/22/19 patient developed diarrhea, C. difficile test was positive. Treatment with vancomycin by mouth started 1. Cholecystitis Status post lap scopic cholecystectomy, was found to have an gangrenous gallbladder postop day 6 GARY drain removed Zosyn was discontinued yesterday 2. Chronic kidney disease/ DULCE Improved Lasix re started 3. Chronic diastolic CHF. Status post open heart valve repair, presumably from previous records its tricuspid valve Continue spironolactone, continue Lasix 4. COPD Stable, continue home meds, supplemental oxygen to maintain O2 sats of 90%. 5. A. fib. Heart rate is under control c/w Xarelto 6. Hyperlipidemia Continue simvastatin. 7. Severe pulmonary hypertension. Noted from echo in 2017, right ventricular systolic pressure 70. 8. Right leg edema Doppler ultrasound negative for DVT Dysuria Markedly improved c/w Flomax C. difficile colitis Continue vancomycin by mouth. Day 1 Depression Fluoxetine initiated DVT prophylaxis: Xarelto VS,Fishbone, I+O VS, Fishbone, I+O Laboratory Tests 08/23/19 05:11 Vital Signs Date Time Temp Pulse Resp B/P (MAP) Pulse Ox O2 Delivery O2 Flow Rate FiO2 08/23/19 16:00 97.8 73 20 143/63 (89) 94 Room Air 08/19/19 08:01 2.0 I&O- Last 24 Hours up to 6 AM 08/23/19 06:00 Intake Total 590 ml Output Total 500 ml Balance 90 ml BESSIE GUZMÁN DO Aug 23, 2019 18:44
[2019-08-23] MEDS: SIMVASTATIN 20 MG TAB PO SCH (21:09)
[2019-08-23] MEDS: raNITIdine SYRUP 150 MG/10 ML UDC PO SCH (21:09)
[2019-08-23] MEDS: ACETAMINOPHEN TAB 650MG DOSE (2X325MG) PO PRN (21:09)
[2019-08-24] VITALS: BP 118/68
[2019-08-24 05:36] LABS: BASO % 0.1 % (0.0-1.0); EOS # 0.1 10^3/uL (0.0-0.5); EOS % 1.2 % (0.0-3.0); HEMATOCRIT 26.6 % (42.0-52.0); HEMOGLOBIN 8.4 g/dl (13.5-17.5); LYMPH # 0.6 10^3/uL (1.5-5.0); LYMPH % 5.9 % (24.0-44.0); MEAN CORPUSCULAR HEMOGLOBIN 29.6 pg (27.0-33.0); MEAN CORPUSCULAR HGB CONC 31.6 g/dl (32.0-36.5); MEAN CORPUSCULAR VOLUME 93.7 fl (80.0-96.0); MONO # 0.4 10^3/uL (0.0-0.8); MONO % 4.1 % (0.0-5.0); NEUTROPHILS # 8.6 10^3/uL (1.5-8.5); NEUTROPHILS % 87.9 % (36.0-66.0); PLATELET COUNT, AUTOMATED 126 10^3/uL (150-450); RED BLOOD COUNT 2.84 10^6/uL (4.30-6.10); WHITE BLOOD COUNT 9.8 10^3/uL (4.0-10.0)
[2019-08-24 06:00] LABS: BILIRUBIN,TOTAL 1.1 MG/DL (0.2-1.0); CALCIUM LEVEL 8.6 MG/DL (8.8-10.2); CREATININE FOR GFR 1.32 MG/DL (0.70-1.30); GLOMERULAR FILTRATION RATE 54.6 (>35); MAGNESIUM LEVEL 2.2 MG/DL (1.8-2.4); POTASSIUM SERUM 3.8 MEQ/L (3.5-5.1)
[2019-08-24] MEDS: SLF 3 ML SYR IV SCH ×3 (06:00→21:28)
[2019-08-24] MEDS: VANCOMYCIN ORAL SOL 250MG/5ML ORAL SYRINGE PO SCH ×4 (06:15→23:05)
[2019-08-24 08:00] VITALS: BP_SYST 108; BP_SYST 131; BP_DIAS 60; BP_DIAS 62
[2019-08-24] MEDS: raNITIdine SYRUP 150 MG/10 ML UDC PO SCH ×2 (09:14→21:27)
[2019-08-24] MEDS: FUROSEMIDE 40 MG TAB PO SCH (09:14)
[2019-08-24] MEDS: TAMSULOSIN 0.4 MG CAP PO SCH ×2 (09:14→21:27)
[2019-08-24] MEDS: ASPIRIN 81 MG ENTERIC TAB PO SCH (09:14)
[2019-08-24] MEDS: MIDODRINE 2.5 MG TAB PO SCH ×3 (09:14→17:02)
[2019-08-24] MEDS: SPIRONOLACTONE 25 MG TAB PO SCH (09:14)
[2019-08-24] MEDS: ASCORBIC ACID 500 MG TAB PO SCH (09:14)
[2019-08-24] MEDS: FLUoxetine 10 MG CAP PO SCH (09:14)
[2019-08-24 12:00] VITALS: BP 110/65
[2019-08-24 14:00] VITALS: BP 122/68
--- NOTE | 2019-08-24 15:32 | IPNPDOC ---
Text Note Date of Service The patient was seen on 08/24/19. NOTE Subjective: No any acute events overnight. Diarrhea resolved. Patient denies fever, chills, nausea, vomiting shortness of breath. Patient has urinary incontinence Objective: GENERAL: No distress HEENT: Normocephalic, atraumatic, moist mucous membranes NECK: Supple CARDIOVASCULAR EXAMINATION: Irregularly irregular RESPIRATORY EXAMINATION: Diminished, poor air movement, no wheezing ABDOMINAL EXAMINATION: Moderately distended, no rebound or guarding. EXTREMITIES: Range of motion intact, right lower extremity +2, left lower extremity +1 SKIN: No rash ASSESSMENT: 89-year-old male with multiple comorbidities presents with abdominal pain and imaging concerning for distended gallbladder with stone in the gallbladder neck. Lap chol was done By Dr Galeana. Patient received treatment with Zosyn IV. On 08/22/19 patient developed diarrhea, C. difficile test was positive. Treatment with vancomycin by mouth started 1. Cholecystitis Status post lap scopic cholecystectomy, was found to have an gangrenous gallbladder postop day 6 GARY drain removed Zosyn was discontinued on 08/22/19 2. Chronic kidney disease/ DULCE Improved Lasix re started 3. Chronic diastolic CHF. Status post open heart valve repair, presumably from previous records its tricuspid valve Continue spironolactone, continue Lasix 4. COPD Stable, continue home meds, supplemental oxygen to maintain O2 sats of 90%. 5. A. fib. Heart rate is under control c/w Xarelto 6. Hyperlipidemia Continue simvastatin. 7. Severe pulmonary hypertension. Noted from echo in 2017, right ventricular systolic pressure 70. 8. Right leg edema Doppler ultrasound negative for DVT Dysuria c/w Flomax C. difficile colitis Continue vancomycin by mouth. Day 2 Depression Fluoxetine initiated Deconditioning PT/OT DVT prophylaxis: Xarelto VS,Fishbone, I+O VS, Fishbone, I+O Laboratory Tests 08/24/19 05:22 Vital Signs Date Time Temp Pulse Resp B/P (MAP) Pulse Ox O2 Delivery O2 Flow Rate FiO2 08/24/19 12:00 97.3 63 20 110/65 (80) 97 Room Air 08/19/19 08:01 2.0 I&O- Last 24 Hours up to 6 AM 08/24/19 06:00 Intake Total 300 ml Output Total 75 ml Balance 225 ml BESSIE GUZMÁN DO Aug 24, 2019 15:32
[2019-08-24 16:00] VITALS: BP 128/68
[2019-08-24] MEDS: RIVAROXABAN 10 MG TAB (XARELTO) PO SCH (17:02)
[2019-08-24] MEDS: SIMVASTATIN 20 MG TAB PO SCH (21:27)
[2019-08-24] MEDS: ACETAMINOPHEN TAB 650MG DOSE (2X325MG) PO PRN (21:28)
[2019-08-24 22:00] VITALS: BP 116/70
[2019-08-25 02:00] VITALS: BP 123/64
[2019-08-25] MEDS: SLF 3 ML SYR IV SCH ×3 (05:03→20:43)
[2019-08-25] MEDS: VANCOMYCIN ORAL SOL 250MG/5ML ORAL SYRINGE PO SCH ×4 (05:03→23:33)
[2019-08-25] MEDS: ACETAMINOPHEN TAB 650MG DOSE (2X325MG) PO PRN ×2 (05:04→20:42)
[2019-08-25 06:00] VITALS: BP 116/70
[2019-08-25 06:31] LABS: BASO % 0.1 % (0.0-1.0); EOS # 0.1 10^3/uL (0.0-0.5); EOS % 0.9 % (0.0-3.0); HEMATOCRIT 27.6 % (42.0-52.0); HEMOGLOBIN 8.5 g/dl (13.5-17.5); LYMPH # 0.6 10^3/uL (1.5-5.0); LYMPH % 5.9 % (24.0-44.0); MEAN CORPUSCULAR HEMOGLOBIN 28.2 pg (27.0-33.0); MEAN CORPUSCULAR HGB CONC 30.8 g/dl (32.0-36.5); MEAN CORPUSCULAR VOLUME 91.7 fl (80.0-96.0); MONO # 0.4 10^3/uL (0.0-0.8); MONO % 4.6 % (0.0-5.0); NEUTROPHILS # 8.2 10^3/uL (1.5-8.5); PLATELET COUNT, AUTOMATED 142 10^3/uL (150-450); RED BLOOD COUNT 3.01 10^6/uL (4.30-6.10); WHITE BLOOD COUNT 9.3 10^3/uL (4.0-10.0)
[2019-08-25 06:57] LABS: BILIRUBIN,TOTAL 1.1 MG/DL (0.2-1.0); CALCIUM LEVEL 8.4 MG/DL (8.8-10.2); CREATININE FOR GFR 1.26 MG/DL (0.70-1.30); GLOMERULAR FILTRATION RATE 57.6 (>35); MAGNESIUM LEVEL 2.1 MG/DL (1.8-2.4); POTASSIUM SERUM 3.8 MEQ/L (3.5-5.1)
[2019-08-25] MEDS: MIDODRINE 2.5 MG TAB PO SCH ×3 (08:49→16:21)
[2019-08-25] MEDS: SPIRONOLACTONE 25 MG TAB PO SCH (08:49)
[2019-08-25] MEDS: raNITIdine SYRUP 150 MG/10 ML UDC PO SCH (08:49)
[2019-08-25] MEDS: POTASSIUM CHLORIDE 10 MEQ SR TABLET PO SCH (08:49)
[2019-08-25] MEDS: FLUoxetine 10 MG CAP PO SCH (08:49)
[2019-08-25] MEDS: FUROSEMIDE 40 MG TAB PO SCH (08:49)
[2019-08-25] MEDS: ASPIRIN 81 MG ENTERIC TAB PO SCH (08:49)
[2019-08-25] MEDS: TAMSULOSIN 0.4 MG CAP PO SCH ×2 (08:50→20:42)
[2019-08-25] MEDS: ASCORBIC ACID 500 MG TAB PO SCH (08:50)
[2019-08-25 09:00] LABS: PERCENT SATURATION 16.2 % (19.7-50.0)
[2019-08-25] MEDS: FERROUS GLUCONATE 324 MG TAB PO SCH ×2 (12:22→20:42)
[2019-08-25 12:44] LABS: PERCENT SATURATION 15.2 % (19.7-50.0)
[2019-08-25 14:00] VITALS: BP 110/45
[2019-08-25] MEDS: RIVAROXABAN 10 MG TAB (XARELTO) PO SCH (16:21)
--- NOTE | 2019-08-25 18:49 | IPNPDOC ---
Text Note Date of Service The patient was seen on 08/25/19. NOTE Subjective: Today patient developed moderate confusion the morning he was not oriented to time and in place, confusion resolved later during the day. Objective: GENERAL: No distress HEENT: Normocephalic, atraumatic, moist mucous membranes NECK: Supple CARDIOVASCULAR EXAMINATION: Irregularly irregular RESPIRATORY EXAMINATION: Diminished, poor air movement, no wheezing ABDOMINAL EXAMINATION: Moderately distended, no rebound or guarding. EXTREMITIES: Range of motion intact, right lower extremity +2, left lower extremity +1 SKIN: No rash ASSESSMENT: 89-year-old male with multiple comorbidities presents with abdominal pain and imaging concerning for distended gallbladder with stone in the gallbladder neck. Lap chol was done By Dr Galeana. Patient received treatment wi th Zosyn IV. On 08/22/19 patient developed diarrhea, C. difficile test was positive. Treatment with vancomycin by mouth started 1. Cholecystitis Status post lap scopic cholecystectomy, was found to have an gangrenous gallbladder postop day 7 GARY drain removed Zosyn was discontinued on 08/22/19 2. Chronic kidney disease/ DULCE Improved Lasix re started 3. Chronic diastolic CHF. Status post open heart valve repair, presumably from previous records its tricuspid valve Continue spironolactone, continue Lasix 4. COPD Stable, continue home meds, supplemental oxygen to maintain O2 sats of 90%. 5. A. fib. Heart rate is under control c/w Xarelto 6. Hyperlipidemia Continue simvastatin. 7. Severe pulmonary hypertension. Noted from echo in 2017, right ventricular systolic pressure 70. 8. Right leg edema Doppler ultrasound negative for DVT Dysuria c/w Flomax C. difficile colitis Continue vancomycin by mouth. Day 3 Depression Fluoxetine initiated Deconditioning PT/OT DVT prophylaxis: Xarelto Delirium Frequent reorientation I stop ranitidine which can contribute to delirium VS,Fishbone, I+O VS, Fishbone, I+O Laboratory Tests 08/25/19 05:58 Vital Signs Date Time Temp Pulse Resp B/P (MAP) Pulse Ox O2 Delivery O2 Flow Rate FiO2 08/25/19 14:00 97.2 62 19 110/45 (66) 96 Room Air 08/19/19 08:01 2.0 I&O- Last 24 Hours up to 6 AM 08/25/19 06:00 Intake Total 710 ml Output Total 900 ml Balance -190 ml DROZHZHIN,BESSIE DO Aug 25, 2019 18:48
[2019-08-25] MEDS: SIMVASTATIN 20 MG TAB PO SCH (20:42)
[2019-08-25 22:00] VITALS: BP 119/51
[2019-08-26] MEDS: ACETAMINOPHEN TAB 650MG DOSE (2X325MG) PO PRN ×2 (05:15→21:20)
[2019-08-26] MEDS: VANCOMYCIN ORAL SOL 250MG/5ML ORAL SYRINGE PO SCH ×4 (05:15→23:27)
[2019-08-26] MEDS: SLF 3 ML SYR IV SCH ×3 (05:16→21:19)
[2019-08-26 06:00] VITALS: BP 119/52
[2019-08-26 06:28] LABS: BASO % 0.1 % (0.0-1.0); EOS # 0.1 10^3/uL (0.0-0.5); EOS % 0.9 % (0.0-3.0); HEMATOCRIT 26.9 % (42.0-52.0); HEMOGLOBIN 8.3 g/dl (13.5-17.5); LYMPH # 0.5 10^3/uL (1.5-5.0); LYMPH % 6.3 % (24.0-44.0); MEAN CORPUSCULAR HEMOGLOBIN 28.4 pg (27.0-33.0); MEAN CORPUSCULAR HGB CONC 30.9 g/dl (32.0-36.5); MEAN CORPUSCULAR VOLUME 92.1 fl (80.0-96.0); MONO # 0.6 10^3/uL (0.0-0.8); MONO % 6.7 % (0.0-5.0); NEUTROPHILS # 7.3 10^3/uL (1.5-8.5); NEUTROPHILS % 85.3 % (36.0-66.0); PLATELET COUNT, AUTOMATED 175 10^3/uL (150-450); RED BLOOD COUNT 2.92 10^6/uL (4.30-6.10); WHITE BLOOD COUNT 8.6 10^3/uL (4.0-10.0)
[2019-08-26 06:54] LABS: BILIRUBIN,TOTAL 1.2 MG/DL (0.2-1.0); CALCIUM LEVEL 8.1 MG/DL (8.8-10.2); CREATININE FOR GFR 1.34 MG/DL (0.70-1.30); GLOMERULAR FILTRATION RATE 53.7 (>35); MAGNESIUM LEVEL 2.2 MG/DL (1.8-2.4); POTASSIUM SERUM 4.1 MEQ/L (3.5-5.1)
[2019-08-26] MEDS: ASPIRIN 81 MG ENTERIC TAB PO SCH (09:14)
[2019-08-26] MEDS: TAMSULOSIN 0.4 MG CAP PO SCH ×2 (09:14→21:19)
[2019-08-26] MEDS: ASCORBIC ACID 500 MG TAB PO SCH (09:14)
[2019-08-26] MEDS: FUROSEMIDE 40 MG TAB PO SCH (09:14)
[2019-08-26] MEDS: FLUoxetine 10 MG CAP PO SCH (09:14)
[2019-08-26] MEDS: MIDODRINE 2.5 MG TAB PO SCH ×3 (09:14→17:38)
[2019-08-26] MEDS: FERROUS GLUCONATE 324 MG TAB PO SCH (09:15)
[2019-08-26] MEDS: SPIRONOLACTONE 25 MG TAB PO SCH (09:15)
[2019-08-26] MEDS: POTASSIUM CHLORIDE 10 MEQ SR TABLET PO SCH (09:15)
[2019-08-26 10:52] LABS: FOLATE 9.6 NG/ML (>5.4)
[2019-08-26 14:53] VITALS: BP 119/52
[2019-08-26] MEDS: RIVAROXABAN 10 MG TAB (XARELTO) PO SCH (17:38)
--- NOTE | 2019-08-26 18:08 | IPNPDOC ---
Text Note Date of Service The patient was seen on 08/26/19. NOTE Subjective: Today patient more alert in the morning. Patient denies fever, c hills, nausea, vomiting, shortness of breath, palpitations, diarrhea. Patient continues to have urinary incontinence Objective: GENERAL: No distress HEENT: Normocephalic, atraumatic, moist mucous membranes NECK: Supple CARDIOVASCULAR EXAMINATION: Irregularly irregular RESPIRATORY EXAMINATION: Diminished, poor air movement, no wheezing ABDOMINAL EXAMINATION: Moderately distended, no rebound or guarding. EXTREMITIES: Range of motion intact, right lower extremity +2, left lower extremity +1 SKIN: No rash ASSESSMENT: 89-year-old male with multiple comorbidities presents with abdominal pain and imaging concerning for distended gallbladder with stone in the gallbladder neck. Lap chol was done By Dr Galeana. Patient received treatment with Zosyn IV. On 08/22/19 patient developed diarrhea, C. difficile test was positive. Treatment with vancomycin by mouth started. Patient has severe deconditioning, most likely he will need acute rehabilitation for discharge. Await placement. 1. Cholecystitis Status post lap scopic cholecystectomy, was found to have an gangrenous gallbladder postop day 8 GARY drain removed Zosyn was discontinued on 08/22/19 2. Chronic kidney disease/ DULCE Improved Lasix re started 3. Chronic diastolic CHF. Status post open heart valve repair, presumably from previous records its tricuspid valve Continue spironolactone, continue Lasix 4. COPD Stable, continue home meds, supplemental oxygen to maintain O2 sats of 90%. 5. A. fib. Heart rate is under control c/w Xarelto 6. Hyperlipidemia Continue simvastatin. 7. Severe pulmonary hypertension. Noted from echo in 2017, right ventricular systolic pressure 70. 8. Right leg edema Doppler ultrasound negative for DVT Dysuria c/w Flomax C. difficile colitis Continue vancomycin by mouth. Day 4 Depression Fluoxetine initiated Deconditioning PT/OT DVT prophylaxis: Xarelto Delirium Resolved Frequent reorientation I stop ranitidine which can contribute to delirium VS,Fishbone, I+O VS, Fishbone, I+O Laboratory Tests 08/26/19 05:50 Vital Signs Date Time Temp Pulse Resp B/P (MAP) Pulse Ox O2 Delivery O2 Flow Rate FiO2 08/26/19 06:00 97.9 71 18 119/52 (74) 94 Room Air I&O- Last 24 Hours up to 6 AM 08/26/19 06:00 Intake Total 1500 ml Output Total 0 ml Balance 1500 ml BESSIE GUZMÁN DO Aug 26, 2019 18:08
[2019-08-26 21:06] VITALS: BP 110/54
[2019-08-26] MEDS: SIMVASTATIN 20 MG TAB PO SCH (21:19)
[2019-08-27] MEDS: VANCOMYCIN ORAL SOL 250MG/5ML ORAL SYRINGE PO SCH ×4 (05:27→23:55)
[2019-08-27] MEDS: SLF 3 ML SYR IV SCH ×3 (05:27→21:18)
[2019-08-27 05:29] VITALS: BP 101/49
[2019-08-27 06:33] LABS: BASO % 0.1 % (0.0-1.0); EOS # 0.1 10^3/uL (0.0-0.5); EOS % 1.8 % (0.0-3.0); HEMATOCRIT 26.5 % (42.0-52.0); LYMPH # 0.5 10^3/uL (1.5-5.0); LYMPH % 6.7 % (24.0-44.0); MEAN CORPUSCULAR HEMOGLOBIN 28.9 pg (27.0-33.0); MEAN CORPUSCULAR HGB CONC 30.2 g/dl (32.0-36.5); MEAN CORPUSCULAR VOLUME 95.7 fl (80.0-96.0); MONO # 0.6 10^3/uL (0.0-0.8); MONO % 7.7 % (0.0-5.0); NEUTROPHILS # 6.1 10^3/uL (1.5-8.5); NEUTROPHILS % 83.2 % (36.0-66.0); PLATELET COUNT, AUTOMATED 174 10^3/uL (150-450); RED BLOOD COUNT 2.77 10^6/uL (4.30-6.10); WHITE BLOOD COUNT 7.4 10^3/uL (4.0-10.0)
--- NOTE | 2019-08-27 08:31 | IPNPDOC ---
Text Note Date of Service The patient was seen on 08/27/19. NOTE Subjective: Denies fever, chills, nausea, vomiting, shortness of breath, palpitations, diarrhea this morning Objective: GENERAL: No distress HEENT: Normocephalic, atraumatic, MMM NECK: Supple, no JVD CARDIOVASCULAR EXAMINATION: Irregularly irregular RESPIRATORY EXAMINATION: Diminished, poor air movement, no wheezing ABDOMINAL EXAMINATION: Moderately distended, no rebound or guarding. EXTREMITIES: Range of motion intact, right lower extremity +2 pitting edema, left lower extremity +1 pitting edema SKIN: No rash ASSESSMENT: 89-year-old man with multiple comorbidities presents with abdominal pain and imaging showing distended gallbladder with stone in the gallbladder neck s/p lap chol by Dr Galeana + empiric zosyn I now c/b C. difficile colitis, now on PO vancomycin, with course further c/b severe deconditioning pending PT/OT evaluation for safe discharge and placement. 1. Cholecystitis -Status post lap scopic cholecystectomy, was found to have an gangrenous gallbladder, postop day 9 -s/p GARY drain removal -Zosyn was discontinued on 08/22/19 2. Chronic kidney disease/ DULCE: Improved -Lasix was started 3. Chronic diastolic CHF: s/p open heart valve repair, presumably from previous records its tricuspid valve? -Continue spironolactone and Lasix 4. COPD Stable, continue home meds, supplemental oxygen to maintain O2 sats of 90%. 5. A. fib: rate controlled -c/w Xarelto 6. Hyperlipidemia -Continue simvastatin. 7. Severe pulmonary hypertension. -Noted from echo in 2017, right ventricular systolic pressure 70. -monitor - 8. Right leg edema -Doppler ultrasound negative for DVT 9. C. difficile colitis -Continue PO vancomycin, day 5 10. Depression -Fluoxetine 11. Deconditioning -PT/OT 12. Delirium: Resolved -Frequent reorientation -Stopped ranitidine which can contribute to delirium DVT prophylaxis: Xarelto Dispo: pending PT/OT eval VS,Fishbone, I+O VS, Fishbone, I+O Laboratory Tests 08/27/19 06:15 Vital Signs Date Time Temp Pulse Resp B/P (MAP) Pulse Ox O2 Delivery O2 Flow Rate FiO2 08/27/19 05:29 97.6 56 18 101/49 (66) 97 Room Air I&O- Last 24 Hours up to 6 AM 08/27/19 06:00 Intake Total 280 ml Balance 280 ml JEFFERSON HAIRSTON MD Aug 27, 2019 08:31
[2019-08-27] MEDS: SPIRONOLACTONE 25 MG TAB PO SCH (08:55)
[2019-08-27] MEDS: ASCORBIC ACID 500 MG TAB PO SCH (08:55)
[2019-08-27] MEDS: FLUoxetine 10 MG CAP PO SCH (08:55)
[2019-08-27] MEDS: ASPIRIN 81 MG ENTERIC TAB PO SCH (08:55)
[2019-08-27] MEDS: FUROSEMIDE 40 MG TAB PO SCH (08:55)
[2019-08-27] MEDS: MIDODRINE 2.5 MG TAB PO SCH ×3 (08:55→17:01)
[2019-08-27] MEDS: POTASSIUM CHLORIDE 10 MEQ SR TABLET PO SCH (08:55)
[2019-08-27] MEDS: FERROUS GLUCONATE 324 MG TAB PO SCH (08:55)
[2019-08-27] MEDS: TAMSULOSIN 0.4 MG CAP PO SCH ×2 (08:55→21:18)
[2019-08-27 14:59] VITALS: BP 101/51
[2019-08-27] MEDS: RIVAROXABAN 10 MG TAB (XARELTO) PO SCH (17:02)
[2019-08-27] MEDS: SIMVASTATIN 20 MG TAB PO SCH (21:18)
[2019-08-27 22:00] VITALS: BP 94/45
[2019-08-27 23:01] VITALS: BP 102/60
[2019-08-28] MEDS: SLF 3 ML SYR IV SCH ×3 (05:53→21:48)
[2019-08-28] MEDS: VANCOMYCIN ORAL SOL 250MG/5ML ORAL SYRINGE PO SCH ×3 (05:53→18:23)
--- NOTE | 2019-08-28 05:55 | IPNPDOC ---
Text Note Date of Service The patient was seen on 08/28/19. NOTE Subjective: -No acute overnight events -Denies subjective fevers, chills, sweats, nausea, vomiting, shortness of breath, palpitations or diarrhea -2 BMs charted in the last 24h Objective: GENERAL: No distress HEENT: Normocephalic, atraumatic, MMM NECK: Supple, no JVD CARDIOVASCULAR EXAMINATION: Irregularly irregular RESPIRATORY EXAMINATION: Diminished, poor air movement, no wheezing or crackles ABDOMINAL EXAMINATION: Normoactive bowel sounds, soft, moderate distention, no rebound or guarding. EXTREMITIES: Range of motion intact, right lower extremity +2 pitting edema, left lower extremity +1 pitting edema SKIN: No rash I/Os - charted as 2 voids and 1 episode of incontinence. 2 BMs. Labs: Pending AM labs, otherwise 08/26 labs were reviewed. ASSESSMENT: 89-year-old man with multiple comorbidities presents with abdominal pain and imaging showing distended gallbladder with stone in the gallbladder neck s/p lap chol by Dr Galeana + empiric zosyn I now c/b C. difficile colitis, now on PO vancomycin, with course further c/b severe deconditioning pending safe discharge planning with care management actively discussing options with family. 1. Cholecystitis -Status post lap scopic cholecystectomy, was found to have an gangrenous gallbladder, postop day 10 -s/p GARY drain removal -Zosyn was discontinued on 08/22/19 2. Chronic kidney disease/ DULCE: Improved -Lasix was restarted -follow up BMP today 3. Chronic diastolic CHF: s/p open heart valve repair, presumably from previous records its tricuspid valve? -Continue spironolactone and Lasix 4. COPD Stable, continue home meds, supplemental oxygen to maintain O2 sats of 90%. 5. A. fib: rate controlled -c/w Xarelto 6. Hyperlipidemia -Continue simvastatin. 7. Severe pulmonary hypertension. -Noted from echo in 2017, right ventricular systolic pressure 70. -monitor - 8. Right>left leg edema -Doppler ultrasound negative for DVT 9. C. difficile colitis -Continue PO vancomycin, day 6 10. Depression -Fluoxetine 11. Deconditioning -continue daily PT/OT with plan for placement as he is unsafe for discharge home with ongoing care management planning 12. Delirium: Resolved -Frequent reorientation -Stopped ranitidine which can contribute to delirium DVT prophylaxis: Xarelto Dispo: pending safe discharge planning for appropriate placement with care management VSJosefina, I+O VSJosefina, I+O Laboratory Tests 08/27/19 06:15 Vital Signs Date Time Temp Pulse Resp B/P (MAP) Pulse Ox O2 Delivery O2 Flow Rate FiO2 08/27/19 23:01 54 102/60 (74) 08/27/19 22:00 97.2 18 99 Room Air I&O- Last 24 Hours up to 6 AM 08/28/19 06:00 Intake Total 600 ml Output Total 0 ml Balance 600 ml JEFFERSON HAIRSTON MD Aug 28, 2019 05:55
[2019-08-28 06:00] VITALS: BP 94/55
[2019-08-28 06:21] LABS: HEMATOCRIT 25.8 % (42.0-52.0); MEAN CORPUSCULAR HEMOGLOBIN 29.3 pg (27.0-33.0); MEAN CORPUSCULAR VOLUME 94.5 fl (80.0-96.0); PLATELET COUNT, AUTOMATED 214 10^3/uL (150-450); RED BLOOD COUNT 2.73 10^6/uL (4.30-6.10); WHITE BLOOD COUNT 6.4 10^3/uL (4.0-10.0)
[2019-08-28 06:45] LABS: CALCIUM LEVEL 8.2 MG/DL (8.8-10.2); CREATININE FOR GFR 1.35 MG/DL (0.70-1.30); GLOMERULAR FILTRATION RATE 53.2 (>35)
[2019-08-28] MEDS: FERROUS GLUCONATE 324 MG TAB PO SCH (08:28)
[2019-08-28] MEDS: FLUoxetine 10 MG CAP PO SCH (08:28)
[2019-08-28] MEDS: ASPIRIN 81 MG ENTERIC TAB PO SCH (08:28)
[2019-08-28] MEDS: MIDODRINE 2.5 MG TAB PO SCH ×3 (08:28→16:35)
[2019-08-28] MEDS: ASCORBIC ACID 500 MG TAB PO SCH (08:28)
[2019-08-28] MEDS: TAMSULOSIN 0.4 MG CAP PO SCH ×2 (08:29→21:48)
[2019-08-28 08:31] VITALS: BP 104/54
[2019-08-28] MEDS: POTASSIUM CHLORIDE 10 MEQ SR TABLET PO SCH (09:00)
[2019-08-28 12:38] VITALS: BP 104/58
[2019-08-28] MEDS: SPIRONOLACTONE 25 MG TAB PO SCH (12:42)
[2019-08-28] MEDS: FUROSEMIDE 40 MG TAB PO SCH (12:43)
[2019-08-28 12:59] VITALS: BP 108/45
[2019-08-28] MEDS: RIVAROXABAN 10 MG TAB (XARELTO) PO SCH (18:23)
[2019-08-28 18:32] VITALS: BP 107/44
[2019-08-28 20:00] VITALS: BP 105/49
[2019-08-28] MEDS: SIMVASTATIN 20 MG TAB PO SCH (21:48)
[2019-08-28] MEDS: VANICREAM MOISTURIZING SKIN CREAM 113GM TUBE TOP SCH (21:48)
[2019-08-29] MEDS: VANCOMYCIN ORAL SOL 250MG/5ML ORAL SYRINGE PO SCH ×5 (00:29→23:56)
[2019-08-29] MEDS: SLF 3 ML SYR IV SCH (05:33)
[2019-08-29 05:56] VITALS: BP 103/45
[2019-08-29 06:13] LABS: HEMOGLOBIN 7.9 g/dl (13.5-17.5); MEAN CORPUSCULAR HEMOGLOBIN 28.8 pg (27.0-33.0); MEAN CORPUSCULAR HGB CONC 30.4 g/dl (32.0-36.5); MEAN CORPUSCULAR VOLUME 94.9 fl (80.0-96.0); PLATELET COUNT, AUTOMATED 236 10^3/uL (150-450); RED BLOOD COUNT 2.74 10^6/uL (4.30-6.10); WHITE BLOOD COUNT 6.4 10^3/uL (4.0-10.0)
[2019-08-29 06:38] LABS: CALCIUM LEVEL 8.2 MG/DL (8.8-10.2); CREATININE FOR GFR 1.33 MG/DL (0.70-1.30); GLOMERULAR FILTRATION RATE 54.1 (>35); POTASSIUM SERUM 4.6 MEQ/L (3.5-5.1)
--- NOTE | 2019-08-29 08:12 | IPNPDOC ---
Text Note Date of Service The patient was seen on 08/29/19. NOTE Subjective: -No acute overnight events -Yesterday morning had an episode of knee buckling and weakness while walking with walker with nursing assistance from the bathroom such that he had to be lowered to the ground without falling. Was at recent baseline when I examined him after. -Denies subjective fevers, chills, sweats, nausea, vomiting, shortness of breath , palpitations or diarrhea -Improved PO -Spoke with [id number] who was in town working on switching over his insurance for safe discharge planning Objective: GENERAL: No distress, sitting up in bed, awake, alert, pleasant HEENT: Normocephalic, atraumatic, MMM NECK: Supple, no JVD CARDIOVASCULAR EXAMINATION: Irregularly irregular RESPIRATORY EXAMINATION: Diminished, poor air movement, no wheezing or crackles ABDOMINAL EXAMINATION: Normoactive bowel sounds, soft, moderate distention, no rebound or guarding. EXTREMITIES: Range of motion intact, stable right lower extremity +2 pitting edema, left lower extremity +1 pitting edema SKIN: No rash Labs: reviewed with improving Cr. ASSESSMENT: 89-year-old man with multiple comorbidities presents with abdominal pain and imaging showing distended gallbladder with stone in the gallbladder neck s/p lap chol by Dr Galeana + empiric zosyn I now c/b C. difficile colitis, now on PO vancomycin, with course further c/b severe deconditioning pending safe discharge planning with care management actively discussing STR options with family. 1. Cholecystitis -Status post lap scopic cholecystectomy, was found to have an gangrenous gallbladder, postop day 11 -s/p GARY drain removal -Zosyn was discontinued on 08/22/19 2. Chronic kidney disease/ DULCE: Improved -Lasix was restarted -Cr improving 3. Chronic diastolic CHF: s/p open heart valve repair, presumably from previous records its tricuspid valve? -Continue spironolactone and Lasix 4. COPD Stable, continue home meds, supplemental oxygen to maintain O2 sats of 90%. 5. A. fib: rate controlled -c/w Xarelto 6. Hyperlipidemia -Continue simvastatin. 7. Severe pulmonary hypertension. -Noted from echo in 2017, right ventricular systolic pressure 70. -monitor - 8. Right>left leg edema -Doppler ultrasound negative for DVT 9. C. difficile colitis -Continue PO vancomycin, day 7 10. Depression -Fluoxetine 11. Deconditioning -continue daily PT/OT with plan for STR with ongoing care management planning 12. Delirium: Resolved -Frequent reorientation -Stopped ranitidine which can contribute to delirium DVT prophylaxis: Xarelto Dispo: care management STR planning ongoing VS,Fishbone, I+O VS, Fishbone, I+O Laboratory Tests 08/29/19 05:43 Vital Signs Date Time Temp Pulse Resp B/P (MAP) Pulse Ox O2 Delivery O2 Flow Rate FiO2 08/29/19 05:56 98.8 63 20 103/45 (64) 96 Room Air I&O- Last 24 Hours up to 6 AM 08/29/19 06:00 Intake Total 1650 ml Output Total 150 ml Balance 1500 ml JEFFERSON HAIRSTON MD Aug 29, 2019 08:12
[2019-08-29] MEDS: MIDODRINE 2.5 MG TAB PO SCH ×3 (09:11→17:34)
[2019-08-29] MEDS: FERROUS GLUCONATE 324 MG TAB PO SCH (09:11)
[2019-08-29] MEDS: ASCORBIC ACID 500 MG TAB PO SCH (09:12)
[2019-08-29] MEDS: FLUoxetine 10 MG CAP PO SCH (09:12)
[2019-08-29] MEDS: SPIRONOLACTONE 25 MG TAB PO SCH (09:12)
[2019-08-29] MEDS: ASPIRIN 81 MG ENTERIC TAB PO SCH (09:12)
[2019-08-29] MEDS: FUROSEMIDE 40 MG TAB PO SCH (09:12)
[2019-08-29] MEDS: TAMSULOSIN 0.4 MG CAP PO SCH ×2 (09:12→21:10)
[2019-08-29] MEDS: VANICREAM MOISTURIZING SKIN CREAM 113GM TUBE TOP SCH ×2 (09:12→21:10)
[2019-08-29] MEDS: RIVAROXABAN 10 MG TAB (XARELTO) PO SCH (17:34)
[2019-08-29 18:20] VITALS: BP 132/57
[2019-08-29] MEDS: SIMVASTATIN 20 MG TAB PO SCH (21:10)
[2019-08-29] MEDS: ACETAMINOPHEN TAB 650MG DOSE (2X325MG) PO PRN (21:10)
[2019-08-29 21:11] VITALS: BP 124/58
[2019-08-30] VITALS (14 sets, daily range): BP systolic 99–128; BP diastolic 44–68
[2019-08-30] MEDS: VANCOMYCIN ORAL SOL 250MG/5ML ORAL SYRINGE PO SCH ×4 (06:06→23:46)
[2019-08-30 07:01] LABS: HEMATOCRIT 24.1 % (42.0-52.0); HEMOGLOBIN 7.4 g/dl (13.5-17.5); MEAN CORPUSCULAR HEMOGLOBIN 28.6 pg (27.0-33.0); MEAN CORPUSCULAR HGB CONC 30.7 g/dl (32.0-36.5); MEAN CORPUSCULAR VOLUME 93.1 fl (80.0-96.0); PLATELET COUNT, AUTOMATED 212 10^3/uL (150-450); RED BLOOD COUNT 2.59 10^6/uL (4.30-6.10); WHITE BLOOD COUNT 6.7 10^3/uL (4.0-10.0)
[2019-08-30 07:20] LABS: CREATININE FOR GFR 1.36 MG/DL (0.70-1.30); GLOMERULAR FILTRATION RATE 52.8 (>35); POTASSIUM SERUM 4.5 MEQ/L (3.5-5.1)
--- NOTE | 2019-08-30 08:08 | IPNPDOC ---
Text Note Date of Service The patient was seen on 08/30/19. NOTE Subjective: -No acute overnight events -Denies subjective fevers, chills, sweats, nausea, vomiting, shortness of breath, palpitations or diarrhea Objective: Stable from yesterday Vitals: see below GENERAL: No distress, sitting up in bed, awake, alert, pleasant, eating breakfast HEENT: Normocephalic, atraumatic, MMM NECK: Supple, no JVD CARDIOVASCULAR EXAMINATION: Irregularly irregular RESPIRATORY EXAMINATION: Much improved air movement, no wheezing or crackles ABDOMINAL EXAMINATION: Normoactive bowel sounds, soft, moderate distention, no rebound or guarding. EXTREMITIES: Range of motion intact, stable right lower extremity +2 pitting edema, left lower extremity +1 pitting edema SKIN: No rash Labs: reviewed with stable Cr and hypoNa ASSESSMENT: 89-year-old man with multiple comorbidities presents with abdominal pain and imaging showing distended gallbladder with stone in the gallbladder neck s/p lap chol by Dr Galeana + empiric zosyn I now c/b C. difficile colitis, now on PO vancomycin, with course further c/b severe deconditioning pending safe discharge planning with care management actively discussing STR options with family. 1. Cholecystitis -Status post lap scopic cholecystectomy, was found to have an gangrenous gallbladder, postop day 11 -s/p GARY drain removal -Zosyn was discontinued on 08/22/19 2. Chronic kidney disease/ DULCE: Improved -Lasix was restarted -Cr improving 3. Chronic diastolic CHF: s/p open heart valve repair, presumably from previous records its tricuspid valve? -Continue spironolactone and Lasix 4. COPD Stable, continue home meds, supplemental oxygen to maintain O2 sats of 90%. 5. A. fib: rate controlled -c/w Xarelto 6. Hyperlipidemia -Continue simvastatin. 7. Severe pulmonary hypertension. -Noted from echo in 2017, right ventricular systolic pressure 70. -monitor - 8. Right>left leg edema -Doppler ultrasound negative for DVT 9. C. difficile colitis -Continue PO vancomycin, day 8 10. Depression -Fluoxetine 11. Deconditioning -continue daily PT/OT with plan for STR with ongoing care management planning 12. Delirium: Resolved -Frequent reorientation -Stopped ranitidine which can contribute to delirium DVT prophylaxis: Xarelto Dispo: care management STR planning ongoing, pending placement VS,Fishbone, I+O VS, Fishbone, I+O Laboratory Tests 08/30/19 06:20 Vital Signs Date Time Temp Pulse Resp B/P (MAP) Pulse Ox O2 Delivery O2 Flow Rate FiO2 08/30/19 06:42 97.3 54 20 99/46 (63) 96 Room Air I&O- Last 24 Hours up to 6 AM 08/30/19 06:00 Intake Total 580 ml Output Total 350 ml Balance 230 ml JEFFERSON HAIRSTON MD Aug 30, 2019 08:08
[2019-08-30] MEDS: FERROUS GLUCONATE 324 MG TAB PO SCH (08:21)
[2019-08-30] MEDS: ASPIRIN 81 MG ENTERIC TAB PO SCH (08:21)
[2019-08-30] MEDS: SPIRONOLACTONE 25 MG TAB PO SCH (08:21)
[2019-08-30] MEDS: MIDODRINE 2.5 MG TAB PO SCH ×3 (08:21→17:15)
[2019-08-30] MEDS: VANICREAM MOISTURIZING SKIN CREAM 113GM TUBE TOP SCH ×2 (08:22→21:07)
[2019-08-30] MEDS: ASCORBIC ACID 500 MG TAB PO SCH (08:22)
[2019-08-30] MEDS: FUROSEMIDE 40 MG TAB PO SCH (08:22)
[2019-08-30] MEDS: TAMSULOSIN 0.4 MG CAP PO SCH ×2 (08:22→21:07)
[2019-08-30] MEDS: FLUoxetine 10 MG CAP PO SCH (08:22)
[2019-08-30] MEDS: RIVAROXABAN 10 MG TAB (XARELTO) PO SCH (17:15)
[2019-08-30] MEDS: SIMVASTATIN 20 MG TAB PO SCH (21:07)
[2019-08-30] MEDS: ACETAMINOPHEN TAB 650MG DOSE (2X325MG) PO PRN (21:08)
[2019-08-31 01:03] VITALS: BP 116/52
[2019-08-31] MEDS: VANCOMYCIN ORAL SOL 250MG/5ML ORAL SYRINGE PO SCH ×4 (05:48→23:51)
[2019-08-31 06:00] VITALS: BP 112/64
[2019-08-31 06:44] LABS: HEMATOCRIT 30.7 % (42.0-52.0); MEAN CORPUSCULAR HEMOGLOBIN 29.1 pg (27.0-33.0); MEAN CORPUSCULAR HGB CONC 31.6 g/dl (32.0-36.5); MEAN CORPUSCULAR VOLUME 92.2 fl (80.0-96.0); PLATELET COUNT, AUTOMATED 220 10^3/uL (150-450); RED BLOOD COUNT 3.33 10^6/uL (4.30-6.10); WHITE BLOOD COUNT 6.3 10^3/uL (4.0-10.0)
[2019-08-31 06:52] LABS: HEMOGLOBIN 9.7 g/dl (13.5-17.5)
[2019-08-31 06:59] LABS: CALCIUM LEVEL 7.9 MG/DL (8.8-10.2); CREATININE FOR GFR 1.34 MG/DL (0.70-1.30); GLOMERULAR FILTRATION RATE 53.7 (>35); POTASSIUM SERUM 4.3 MEQ/L (3.5-5.1)
[2019-08-31] MEDS: ASPIRIN 81 MG ENTERIC TAB PO SCH (08:50)
[2019-08-31] MEDS: ASCORBIC ACID 500 MG TAB PO SCH (08:50)
[2019-08-31] MEDS: FLUoxetine 10 MG CAP PO SCH (08:50)
[2019-08-31] MEDS: SPIRONOLACTONE 25 MG TAB PO SCH (08:50)
[2019-08-31] MEDS: FUROSEMIDE 40 MG TAB PO SCH (08:50)
[2019-08-31] MEDS: TAMSULOSIN 0.4 MG CAP PO SCH ×2 (08:50→20:09)
[2019-08-31] MEDS: FERROUS GLUCONATE 324 MG TAB PO SCH (08:50)
[2019-08-31] MEDS: MIDODRINE 2.5 MG TAB PO SCH ×3 (08:50→17:08)
[2019-08-31] MEDS: VANICREAM MOISTURIZING SKIN CREAM 113GM TUBE TOP SCH ×2 (08:50→20:09)
[2019-08-31 14:00] VITALS: BP 117/62
--- NOTE | 2019-08-31 16:41 | IPNPDOC ---
Text Note Date of Service The patient was seen on 08/31/19. NOTE Subjective: -No acute overnight events, anxious about going home, is tired of being in the hospital -Denies subjective fevers, chills, sweats, nausea, vomiting, shortness of breath, palpitations or diarrhea Objective: Stable from yesterday Vitals: see below GENERAL: No distress, sitting up in bed, awake, alert, pleasant, eating breakfas t HEENT: Normocephalic, atraumatic, MMM NECK: Supple, no JVD CARDIOVASCULAR EXAMINATION: Irregularly irregular RESPIRATORY EXAMINATION: CTAB ABDOMINAL EXAMINATION: Normoactive bowel sounds, soft, moderate distention, no rebound or guarding. EXTREMITIES: Range of motion intact, improved right lower extremity +1 pitting edema, left lower extremity trace pitting edema SKIN: No rash Labs: reviewed with stable Cr and hypoNa and appropriate H/H bump after 2u yesterday ASSESSMENT: 89-year-old man with multiple comorbidities presents with abdominal pain and imaging showing distended gallbladder with stone in the gallbladder neck s/p lap chol by Dr Galeana + empiric zosyn I now c/b C. difficile colitis, now on PO vancomycin, with course further c/b severe deconditioning pending safe discharge planning with care management actively discussing STR options with family. 1. Cholecystitis -Status post lap scopic cholecystectomy, was found to have an gangrenous gallbladder, postop day 12 -s/p GARY drain removal -Zosyn was discontinued on 08/22/19 2. Chronic kidney disease/ DULCE: Improved -Lasix was restarted -Cr improved and now stabilized 3. Acute on chronic anemia: -no bleeding sequelae with slow decline -s/p 2u pRBCs yesterday with appropriate bump, will monitor daily CBC 4. Chronic diastolic CHF: s/p open heart valve repair, presumably from previous records its tricuspid valve? -Continue spironolactone and Lasix 5. COPD Stable, continue home meds, supplemental oxygen to maintain O2 sats of 90%. 6. A. fib: rate controlled -c/w Xarelto 7. Hyperlipidemia -Continue simvastatin. 8. Severe pulmonary hypertension. -Noted from echo in 2017, right ventricular systolic pressure 70. -monitor - 9. Right>left leg edema -Doppler ultrasound negative for DVT 10. C. difficile colitis -Continue PO vancomycin, day 9 11. Depression -Fluoxetine 12. Deconditioning -continue daily PT/OT with plan for STR with ongoing care management planning 13. Delirium: Resolved -Frequent reorientation -Stopped ranitidine which can contribute to delirium DVT prophylaxis: Xarelto Dispo: care management STR planning ongoing, pending placement VS,Fishbone, I+O VS, Fishbone, I+O Laboratory Tests 08/31/19 06:26 Vital Signs Date Time Temp Pulse Resp B/P (MAP) Pulse Ox O2 Delivery O2 Flow Rate FiO2 08/31/19 14:00 97.8 59 17 117/62 (80) 97 Room Air 08/30/19 21:33 95 I&O- Last 24 Hours up to 6 AM 08/31/19 06:00 Intake Total 1320 ml Output Total 600 ml Balance 720 ml JEFFERSON HAIRSTON MD Aug 31, 2019 16:41
[2019-08-31] MEDS: RIVAROXABAN 10 MG TAB (XARELTO) PO SCH (17:08)
[2019-08-31] MEDS: ACETAMINOPHEN TAB 650MG DOSE (2X325MG) PO PRN (20:09)
[2019-08-31] MEDS: SIMVASTATIN 20 MG TAB PO SCH (20:09)
[2019-08-31 22:00] VITALS: BP 119/52
[2019-09-01] MEDS: VANCOMYCIN ORAL SOL 250MG/5ML ORAL SYRINGE PO SCH ×4 (05:29→23:29)
[2019-09-01 06:00] VITALS: BP 114/48
[2019-09-01 06:24] LABS: HEMATOCRIT 30.3 % (42.0-52.0); HEMOGLOBIN 9.7 g/dl (13.5-17.5); MEAN CORPUSCULAR HEMOGLOBIN 29.8 pg (27.0-33.0); MEAN CORPUSCULAR VOLUME 93.2 fl (80.0-96.0); PLATELET COUNT, AUTOMATED 202 10^3/uL (150-450); RED BLOOD COUNT 3.25 10^6/uL (4.30-6.10); WHITE BLOOD COUNT 5.8 10^3/uL (4.0-10.0)
[2019-09-01 06:48] LABS: CALCIUM LEVEL 8.5 MG/DL (8.8-10.2); CREATININE FOR GFR 1.25 MG/DL (0.70-1.30); GLOMERULAR FILTRATION RATE 58.2 (>35); MAGNESIUM LEVEL 2.2 MG/DL (1.8-2.4); POTASSIUM SERUM 4.5 MEQ/L (3.5-5.1)
[2019-09-01] MEDS: MIDODRINE 2.5 MG TAB PO SCH ×3 (08:59→17:13)
[2019-09-01] MEDS: FERROUS GLUCONATE 324 MG TAB PO SCH (09:00)
[2019-09-01] MEDS: ASPIRIN 81 MG ENTERIC TAB PO SCH (09:00)
[2019-09-01] MEDS: ASCORBIC ACID 500 MG TAB PO SCH (09:00)
[2019-09-01] MEDS: TAMSULOSIN 0.4 MG CAP PO SCH ×2 (09:00→20:06)
[2019-09-01] MEDS: FLUoxetine 10 MG CAP PO SCH (09:00)
[2019-09-01] MEDS: SPIRONOLACTONE 25 MG TAB PO SCH (09:00)
[2019-09-01] MEDS: VANICREAM MOISTURIZING SKIN CREAM 113GM TUBE TOP SCH ×2 (09:00→20:06)
[2019-09-01] MEDS: FUROSEMIDE 40 MG TAB PO SCH (09:00)
[2019-09-01 14:00] VITALS: BP 124/54
[2019-09-01] MEDS: RIVAROXABAN 10 MG TAB (XARELTO) PO SCH (17:13)
--- NOTE | 2019-09-01 17:49 | IPNPDOC ---
Text Note Date of Service The patient was seen on 09/01/19. NOTE Subjective: -No acute overnight events -Denies subjective fevers, chills, sweats, nausea, vomiting, shortness of breath, palpitations or diarrhea -H/H stable at 9.7 for 2d Objective: Stable from yesterday Vitals: see below GENERAL: No distress, sitting up visiting with family HEENT: Normocephalic, atraumatic, MMM NECK: Supple, no JVD CARDIOVASCULAR EXAMINATION: Irregularly irregular RESPIRATORY EXAMINATION: CTAB ABDOMINAL EXAMINATION: Normoactive bowel sounds, soft, moderate distention, no rebound or guarding. EXTREMITIES: Range of motion intact, stable lower extremity +1 pitting edema, R>L SKIN: No rash Labs: reviewed with stable Cr and hypoNa and H/H stable after 2u on 08/30 ASSESSMENT: 89-year-old man with multiple comorbidities presents with abdominal pain and imaging showing distended gallbladder with stone in the gallbladder neck s/p lap chol by Dr Galeana + empiric zosyn I now c/b C. difficile colitis, now on PO vancomycin, with course further c/b severe deconditioning pending STR placement. 1. Cholecystitis -Status post lap scopic cholecystectomy, was found to have an gangrenous gallbladder, postop day 13 -s/p GARY drain removal -Zosyn was discontinued on 08/22/19 2. Chronic kidney disease/ DULCE: Improved -Lasix was restarted -Cr improved and now stabilized 3. Acute on chronic anemia: -no bleeding sequelae with slow decline -s/p 2u pRBCs yesterday with appropriate bump, will monitor daily CBC 4. Chronic diastolic CHF: s/p open heart valve repair, presumably from previous records its tricuspid valve? -Continue spironolactone and Lasix 5. COPD Stable, continue home meds, supplemental oxygen to maintain O2 sats of 90%. 6. A. fib: rate controlled -c/w Xarelto 7. Hyperlipidemia -Continue simvastatin. 8. Severe pulmonary hypertension. -Noted from echo in 2017, right ventricular systolic pressure 70. -monitor - 9. Right>left leg edema -Doppler ultrasound negative for DVT 10. C. difficile colitis -Continue PO vancomycin, day 10 11. Depression -Fluoxetine 12. Deconditioning -continue daily PT/OT with plan for STR with ongoing care management planning 13. Delirium: Resolved -Frequent reorientation -Stopped ranitidine which can contribute to delirium DVT prophylaxis: Xarelto Dispo: pending placement VS,Fishbone, I+O VS, Fishbone, I+O Laboratory Tests 09/01/19 06:15 Vital Signs Date Time Temp Pulse Resp B/P (MAP) Pulse Ox O2 Delivery O2 Flow Rate FiO2 09/01/19 14:00 96.5 54 20 124/54 (77) 96 Room Air 08/30/19 21:33 95 I&O- Last 24 Hours up to 6 AM 09/01/19 06:00 Intake Total 940 ml Output Total 500 ml Balance 440 ml JEFFERSON HAIRSTON MD Sep 01, 2019 17:49
[2019-09-01] MEDS: SIMVASTATIN 20 MG TAB PO SCH (20:06)
[2019-09-01] MEDS: ACETAMINOPHEN TAB 650MG DOSE (2X325MG) PO PRN (20:06)
[2019-09-01 22:00] VITALS: BP 116/45
[2019-09-02] MEDS: VANCOMYCIN ORAL SOL 250MG/5ML ORAL SYRINGE PO SCH (05:43)
[2019-09-02 06:00] VITALS: BP 114/50
[2019-09-02 06:12] LABS: HEMATOCRIT 28.7 % (42.0-52.0); MEAN CORPUSCULAR HEMOGLOBIN 29.7 pg (27.0-33.0); MEAN CORPUSCULAR HGB CONC 31.4 g/dl (32.0-36.5); MEAN CORPUSCULAR VOLUME 94.7 fl (80.0-96.0); PLATELET COUNT, AUTOMATED 195 10^3/uL (150-450); RED BLOOD COUNT 3.03 10^6/uL (4.30-6.10); WHITE BLOOD COUNT 5.1 10^3/uL (4.0-10.0)
[2019-09-02 06:41] LABS: BLOOD UREA NITROGEN 32 MG/DL (7-18); CALCIUM LEVEL 7.9 MG/DL (8.8-10.2); CARBON DIOXIDE LEVEL 28 MEQ/L (21-32); CHLORIDE LEVEL 101 MEQ/L (98-107); GLOMERULAR FILTRATION RATE > 60.0 (>35); GLUCOSE, FASTING 83 MG/DL (70-100); POTASSIUM SERUM 4.7 MEQ/L (3.5-5.1); SODIUM LEVEL 134 MEQ/L (136-145)
--- NOTE | 2019-09-02 08:12 | IPNPDOC ---
Text Note Date of Service The patient was seen on 09/02/19. NOTE Subjective: -No acute overnight events -Denies subjective fevers, chills, sweats, nausea, vomiting, shortness of breath, palpitations or diarrhea Objective: Stable from yesterday Vitals: see below GENERAL: No distress, sitting up eating breakfast HEENT: Normocephalic, atraumatic, MMM NECK: Supple, no JVD CARDIOVASCULAR EXAMINATION: Irregularly irregular RESPIRATORY EXAMINATION: CTAB ABDOMINAL EXAMINATION: Normoactive bowel sounds, soft, non distended, non tender with no rebound or guarding. EXTREMITIES: Range of motion intact, stable lower extremity +1 pitting edema, R>L, otherwise WWP with 2+ DP pulses bilaterally SKIN: No rash Neuro: AOx2 with orientation to self and that this is a hospital, requesting to go home, strength 4/5 in all four extremities Labs: reviewed with stable slightly elevated Cr, hypoNa and slight H/H drop, otherwist stable now for 3d. ASSESSMENT: 89-year-old man with multiple comorbidities presents with abdominal pain and imaging showing distended gallbladder with stone in the gallbladder neck s/p lap chol by Dr Galeana + empiric zosyn I now c/b C. difficile colitis, now on PO vancomycin, with course further c/b severe deconditioning pending STR placement. 1. Cholecystitis -Status post lap scopic cholecystectomy, was found to have an gangrenous gallbladder, postop day 14 -s/p GARY drain removal -Zosyn was discontinued on 08/22/19 2. Chronic kidney disease/ DULCE: Improved -Lasix was restarted -Cr improved and now stabilized 3. Acute on chronic anemia: -no bleeding sequelae with slow decline -s/p 2u pRBCs yesterday with appropriate bump, will monitor daily CBC, stable with slight drop today 4. Chronic diastolic CHF: s/p open heart valve repair, presumably from previous records its tricuspid valve? -Continue spironolactone and Lasix 5. COPD Stable, continue home meds, supplemental oxygen to maintain O2 sats of 90%. 6. A. fib: rate controlled -c/w Xarelto 7. Hyperlipidemia -Continue simvastatin. 8. Severe pulmonary hypertension. -Noted from echo in 2017, right ventricular systolic pressure 70. -monitor - 9. Right>left leg edema -Doppler ultrasound negative for DVT 10. C. difficile colitis -Continue PO vancomycin, day 11 11. Depression -Fluoxetine 12. Deconditioning -continue daily PT/OT with plan for STR with ongoing care management planning 13. Delirium: Resolved -Frequent reorientation -Stopped ranitidine which can contribute to delirium DVT prophylaxis: Xarelto Dispo: pending placement VS,Fishbone, I+O VS, Fishbone, I+O Laboratory Tests 09/02/19 05:46 Vital Signs Date Time Temp Pulse Resp B/P (MAP) Pulse Ox O2 Delivery O2 Flow Rate FiO2 09/02/19 06:00 97.0 51 18 114/50 (71) 95 Room Air 08/30/19 21:33 95 I&O- Last 24 Hours up to 6 AM 09/02/19 06:00 Intake Total 660 ml Output Total 350 ml Balance 310 ml JEFFERSON HAIRSTON MD Sep 02, 2019 08:12
[2019-09-02] MEDS: FUROSEMIDE 40 MG TAB PO SCH (09:06)
[2019-09-02] MEDS: ASPIRIN 81 MG ENTERIC TAB PO SCH (09:06)
[2019-09-02] MEDS: SPIRONOLACTONE 25 MG TAB PO SCH (09:06)
[2019-09-02] MEDS: TAMSULOSIN 0.4 MG CAP PO SCH ×2 (09:07→20:07)
[2019-09-02] MEDS: ASCORBIC ACID 500 MG TAB PO SCH (09:07)
[2019-09-02] MEDS: VANICREAM MOISTURIZING SKIN CREAM 113GM TUBE TOP SCH ×2 (09:07→20:07)
[2019-09-02] MEDS: FLUoxetine 10 MG CAP PO SCH (09:07)
[2019-09-02] MEDS: FERROUS GLUCONATE 324 MG TAB PO SCH (09:07)
[2019-09-02] MEDS: MIDODRINE 2.5 MG TAB PO SCH ×3 (09:07→16:47)
[2019-09-02] MEDS ORDERED: FLOM0.4C39 PO (11:52)
[2019-09-02] MEDS ORDERED: FLUO10CA8 PO (11:52)
[2019-09-02] MEDS ORDERED: FERR32TA PO (11:52)
[2019-09-02] MEDS ORDERED: ACET1TAB55 PO (11:52)
[2019-09-02] MEDS ORDERED: VANI1CRE5 TOP (11:52)
[2019-09-02] MEDS ORDERED: XARE10TA PO (11:52)
[2019-09-02 14:31] VITALS: BP 108/49
[2019-09-02] MEDS: RIVAROXABAN 10 MG TAB (XARELTO) PO SCH (16:49)
[2019-09-02 19:58] VITALS: BP 98/44
[2019-09-02] MEDS: SIMVASTATIN 20 MG TAB PO SCH (20:07)
[2019-09-02] MEDS: ACETAMINOPHEN TAB 650MG DOSE (2X325MG) PO PRN (20:08)
[2019-09-03 06:00] VITALS: BP 112/72
[2019-09-03 06:01] VITALS: BP_SYST 105; BP_SYST 95; BP_DIAS 47; BP_DIAS 52
[2019-09-03 07:58] LABS: HEMATOCRIT 23.8 % (42.0-52.0); HEMOGLOBIN 7.4 g/dl (13.5-17.5); MEAN CORPUSCULAR HEMOGLOBIN 29.7 pg (27.0-33.0); MEAN CORPUSCULAR HGB CONC 31.1 g/dl (32.0-36.5); MEAN CORPUSCULAR VOLUME 95.6 fl (80.0-96.0); PLATELET COUNT, AUTOMATED 205 10^3/uL (150-450); RED BLOOD COUNT 2.49 10^6/uL (4.30-6.10); WHITE BLOOD COUNT 6.2 10^3/uL (4.0-10.0)
[2019-09-03 08:36] LABS: CALCIUM LEVEL 7.8 MG/DL (8.8-10.2); CREATININE FOR GFR 1.26 MG/DL (0.70-1.30); GLOMERULAR FILTRATION RATE 57.6 (>35); POTASSIUM SERUM 5.3 MEQ/L (3.5-5.1)
[2019-09-03] MEDS: TAMSULOSIN 0.4 MG CAP PO SCH ×2 (09:39→21:45)
[2019-09-03] MEDS: FLUoxetine 10 MG CAP PO SCH (09:40)
[2019-09-03] MEDS: FUROSEMIDE 40 MG TAB PO SCH (09:40)
[2019-09-03] MEDS: ASPIRIN 81 MG ENTERIC TAB PO SCH (09:40)
[2019-09-03] MEDS: FERROUS GLUCONATE 324 MG TAB PO SCH (09:40)
[2019-09-03] MEDS: SPIRONOLACTONE 25 MG TAB PO SCH (09:40)
[2019-09-03] MEDS: MIDODRINE 2.5 MG TAB PO SCH ×3 (09:40→17:13)
[2019-09-03] MEDS: ASCORBIC ACID 500 MG TAB PO SCH (09:40)
[2019-09-03] MEDS: VANICREAM MOISTURIZING SKIN CREAM 113GM TUBE TOP SCH ×2 (09:41→21:45)
[2019-09-03 11:23] LABS: PERCENT SATURATION 25.4 % (19.7-50.0)
--- NOTE | 2019-09-03 12:39 | IPNPDOC ---
Text Note Date of Service The patient was seen on 09/03/19. NOTE Subjective: Had 2 soft bowel movements . no abdominal pain , nausea or vomiting. Denies subjective fevers, chills, sweats, nausea, vomiting, shortness of breath, palpitations or diarrhea Review of CBC shows drop in HH again to 7.4 today will repeat. Objective: Vitals: see below GENERAL: No distress, sitting up eating breakfast HEENT: Normocephalic, atraumatic, MMM NECK: Supple, no JVD CARDIOVASCULAR EXAMINATION: Irregularly irregular RESPIRATORY EXAMINATION: CTAB ABDOMINAL EXAMINATION: Normoactive bowel sounds, soft, non distended, non tender with no rebound or guarding. EXTREMITIES: Range of motion intact, stable lower extremity +1 pitting edema, R>L, otherwise WWP with 2+ DP pulses bilaterally SKIN: No rash Neuro: AOx2 with orientation to self and that this is a hospital, requesting to go home, strength 4/5 in all four extremities Labs: reviewed as below ASSESSMENT: 89-year-old man with multiple comorbidities presents with abdominal pain and imaging showing distended gallbladder with stone in the gallbladder neck s/p lap chol by Dr Galeana + empiric zosyn I now c/b C. difficile colitis, now on PO vancomycin, with course further c/b severe deconditioning pending STR placement. Gangrenous Cholecystitis due to cholelithiasis. Status post lap scopic cholecystectomy, was found to have an gangrenous gallbladder, postop day 14 s/p GARY drain removal Zosyn was discontinued on 08/22/19 DULCE Improved will hold lasix and spironolactone as may be getting too dry. there is rise in BUN and hyperkalemia. Acute on chronic anemia: no bleeding sequelae with slow decline s/p 1u pRBCs on 08/30 HH dropped again on 09/03 Iron panel noted no sig deficiency, vit B12 and Folate normal, will recheck and send for stool occult blood Chronic diastolic CHF: s/p open heart valve repair, presumably from previous records its tricuspid valve? BUN rising significantly ? overdiuresis Vs GIB. Continue spironolactone will hold lasix, hold xarelto COPD Stable, continue home meds, supplemental oxygen to maintain O2 sats of 90%. A. fib: rate controlled hh dropped again will hold xarelto. Hyperlipidemia Continue simvastatin. Severe pulmonary hypertension. Noted from echo in 2017, right ventricular systolic pressure 70. monitor Right>left leg edema Doppler ultrasound negative for DVT C. difficile colitis finished PO vancomycin course Depression Fluoxetine Deconditioning continue daily PT/OT with plan for STR with ongoing care management planning Delirium: Resolved Frequent reorientation Stopped ranitidine which can contribute to delirium Dispo: Discharge postponed due to new drop in HH. Has a bed in [facility]. VS,Fishbone, I+O VS, Fishbone, I+O Laboratory Tests 09/03/19 07:46 Vital Signs Date Time Temp Pulse Resp B/P (MAP) Pulse Ox O2 Delivery O2 Flow Rate FiO2 09/03/19 06:01 97.3 72 18 105/52 (69) 99 Room Air 08/30/19 21:33 95 I&O- Last 24 Hours up to 6 AM 09/03/19 06:00 Intake Total 890 ml Output Total 675 ml Balance 215 ml JR VELIZ MD Sep 03, 2019 12:39
[2019-09-03 14:00] VITALS: BP 120/74
[2019-09-03 14:00] LABS: BASO % 0.3 % (0.0-1.0); EOS % 0.7 % (0.0-3.0); HEMATOCRIT 25.5 % (42.0-52.0); HEMOGLOBIN 7.8 g/dl (13.5-17.5); LYMPH # 0.4 10^3/uL (1.5-5.0); LYMPH % 7.4 % (24.0-44.0); MEAN CORPUSCULAR HEMOGLOBIN 29.8 pg (27.0-33.0); MEAN CORPUSCULAR HGB CONC 30.6 g/dl (32.0-36.5); MEAN CORPUSCULAR VOLUME 97.3 fl (80.0-96.0); MONO # 0.4 10^3/uL (0.0-0.8); MONO % 7.4 % (0.0-5.0); NEUTROPHILS # 4.9 10^3/uL (1.5-8.5); NEUTROPHILS % 83.7 % (36.0-66.0); PLATELET COUNT, AUTOMATED 197 10^3/uL (150-450); RED BLOOD COUNT 2.62 10^6/uL (4.30-6.10); WHITE BLOOD COUNT 5.9 10^3/uL (4.0-10.0)
[2019-09-03] MEDS: LACTOBACILLUS ACIDOPHILUS CAP (BACID) PO SCH (18:02)
[2019-09-03] MEDS: PANTOPRAZOLE 40MG INJ (PROTONIX) (C9113) IV SCH (20:13)
[2019-09-03] MEDS: SIMVASTATIN 20 MG TAB PO SCH (21:45)
[2019-09-03 22:00] VITALS: BP 103/48
[2019-09-04] VITALS (12 sets, daily range): BP systolic 73–113; BP diastolic 44–65
[2019-09-04] MEDS: PANTOPRAZOLE 40MG INJ (PROTONIX) (C9113) IV SCH ×2 (05:08→17:46)
[2019-09-04 08:05] LABS: MEAN CORPUSCULAR HGB CONC 30.7 g/dl (32.0-36.5); MEAN CORPUSCULAR VOLUME 97.6 fl (80.0-96.0); WHITE BLOOD COUNT 6.2 10^3/uL (4.0-10.0)
[2019-09-04 08:26] LABS: HEMATOCRIT 20.5 % (42.0-52.0); PLATELET COUNT, AUTOMATED 31 10^3/uL (150-450)
[2019-09-04 08:29] LABS: HEMOGLOBIN 6.3 g/dl (13.5-17.5)
[2019-09-04 08:36] LABS: CALCIUM LEVEL 8.2 MG/DL (8.8-10.2); CREATININE FOR GFR 1.25 MG/DL (0.70-1.30); GLOMERULAR FILTRATION RATE 58.2 (>35)
[2019-09-04 09:23] LABS: PLTBLUE- EDTA FREE CALC 142 K/mm3 (172-450)
[2019-09-04 09:27] LABS: BASO % 0.3 % (0.0-1.0); EOS # 0.1 10^3/uL (0.0-0.5); EOS % 1.1 % (0.0-3.0); HEMATOCRIT 21.7 % (42.0-52.0); LYMPH # 0.6 10^3/uL (1.5-5.0); LYMPH % 8.8 % (24.0-44.0); MEAN CORPUSCULAR HEMOGLOBIN 29.6 pg (27.0-33.0); MEAN CORPUSCULAR HGB CONC 30.9 g/dl (32.0-36.5); MONO # 0.4 10^3/uL (0.0-0.8); MONO % 5.7 % (0.0-5.0); NEUTROPHILS # 5.4 10^3/uL (1.5-8.5); NEUTROPHILS % 83.5 % (36.0-66.0); PLATELET COUNT, AUTOMATED 136 10^3/uL (150-450); RED BLOOD COUNT 2.26 10^6/uL (4.30-6.10); WHITE BLOOD COUNT 6.5 10^3/uL (4.0-10.0)
[2019-09-04 09:37] LABS: HEMOGLOBIN 6.7 g/dl (13.5-17.5)
[2019-09-04 09:38] LABS: PLTBLUE- EDTA FREE MACHINE 129 10^3/uL (172-450)
[2019-09-04 09:54] LABS: ALBUMIN 1.9 GM/DL (3.2-5.2); BILIRUBIN,DIRECT 0.3 MG/DL (0.0-0.2); BILIRUBIN,TOTAL 0.6 MG/DL (0.2-1.0); TOTAL PROTEIN 5.2 GM/DL (6.4-8.2)
[2019-09-04] MEDS: FERROUS GLUCONATE 324 MG TAB PO SCH (10:31)
[2019-09-04] MEDS: ASCORBIC ACID 500 MG TAB PO SCH (10:31)
[2019-09-04] MEDS: MIDODRINE 2.5 MG TAB PO SCH ×3 (10:31→16:30)
[2019-09-04] MEDS: VANICREAM MOISTURIZING SKIN CREAM 113GM TUBE TOP SCH ×2 (10:32→21:38)
[2019-09-04] MEDS: ASPIRIN 81 MG ENTERIC TAB PO SCH (10:32)
[2019-09-04] MEDS: FLUoxetine 10 MG CAP PO SCH (10:32)
[2019-09-04] MEDS: TAMSULOSIN 0.4 MG CAP PO SCH ×2 (10:32→21:37)
[2019-09-04] MEDS: LACTOBACILLUS ACIDOPHILUS CAP (BACID) PO SCH ×3 (10:45→16:30)
--- NOTE | 2019-09-04 11:58 | IPNPDOC ---
Text Note Date of Service The patient was seen on 09/04/19. NOTE Subjective: patient does not offer any complaints today. Says did not have any diarrhea overnight but did have 4 soft bowels yesterday. No abdominal pain, nausea or vomiting. Objective: Vitals: see below GENERAL: No distress, sitting up eating breakfast HEENT: Normocephalic, atraumatic, MMM NECK: Supple, no JVD CARDIOVASCULAR EXAMINATION: Irregularly irregular RESPIRATORY EXAMINATION: CTAB ABDOMINAL EXAMINATION: Normoactive bowel sounds, soft, non distended, non tender with no rebound or guarding. EXTREMITIES: Range of motion intact, stable lower extremity +1 pitting edema, R>L, otherwise WWP with 2+ DP pulses bilaterally SKIN: No rash Neuro: AOx2 with orientation to self and that this is a hospital, requesting to go home, strength 4/5 in all four extremities Labs: reviewed as below ASSESSMENT: 89-year-old man with multiple comorbidities presents with abdominal pain and imaging showing distended gallbladder with stone in the gallbladder neck s/p lap chol by Dr Galeana + empiric zosyn then developed C. difficile colitis, so was on PO vancomycin which he has finished the course. hospital with course further c/b severe deconditioning pending STR placement. Now he has again dropped his hh . Had received 2 units on 08/30 then responded appropriately again dropped on 09/03 now getting more transfusion. Possible Upper GIB gastroenterology has been consulted Acute on chronic anemia: most probably Upper GIB bleed. could be stress ulceration. HH dropped again on 09/03 now down to 6.7 ordered 2 units of prbc. Iron panel noted no sig deficiency, vit B12 and Folate normal stool occult blood pending hemolysis work up ordered. most probably will be normal as Lfts are ok. GI consulted. Gangrenous Cholecystitis due to cholelithiasis. Status post lap scopic cholecystectomy, was found to have an gangrenous gallbladder, postop day 14 s/p GARY drain removal Zosyn was discontinued on 08/22/19 DULCE Improved will hold lasix and spironolactone as may be getting too dry. there is rise in BUN and hyperkalemia. Chronic diastolic CHF: s/p open heart valve repair, presumably from previous records its tricuspid valve? BUN rising significantly ? overdiuresis Vs GIB. Continue spironolactone will hold lasix, hold xarelto COPD Stable, continue home meds, supplemental oxygen to maintain O2 sats of 90%. A. fib: rate controlled hh dropped again will hold xarelto. Hyperlipidemia Continue simvastatin. Severe pulmonary hypertension. Noted from echo in 2017, right ventricular systolic pressure 70. monitor Right>left leg edema Doppler ultrasound negative for DVT C. difficile colitis finished PO vancomycin course Depression Fluoxetine Deconditioning continue daily PT/OT with plan for STR with ongoing care management planning Delirium: Resolved Frequent reorientation Stopped ranitidine which can contribute to delirium Dispo: Discharge postponed due to new drop in HH. Has a bed in [facility]. VS,Fishbone, I+O VS, Fishbone, I+O Laboratory Tests 09/03/19 13:12 09/04/19 07:45 09/04/19 09:07 Vital Signs Date Time Temp Pulse Resp B/P (MAP) Pulse Ox O2 Delivery O2 Flow Rate FiO2 09/04/19 06:00 96.5 70 17 98/50 (66) 97 Room Air 08/30/19 21:33 95 I&O- Last 24 Hours up to 6 AM 09/04/19 06:00 Intake Total 1050 ml Output Total 0 ml Balance 1050 ml JR VELIZ MD Sep 04, 2019 11:58
[2019-09-04] MEDS: ACETAMINOPHEN TAB 650MG DOSE (2X325MG) PO PRN (13:03)
--- NOTE | 2019-09-04 16:20 | CR.PDOC ---
General Date of Consultation: Sep 04, 2019 Referring Provider: JR VELIZ MD Attending Physician: MICHELE MAURICIO MD Consultation HPI: 89-year-old male with CHF, COPD, CVA, A. fib (on Xarelto) and open heart surgery (valve repair) presents to the ED with right upper quadrant abdominal pain, admitted for sepsis from severe cholecystitis and underwent cholecystectomy, hospital course complicated by C. difficile treated with oral vancomycin, and is currently waiting for placement for short term rehab. Patient is noted with gradual drop in Hemoglobin and hematocrit and GI was consulted for the same. Patient denies any external bleeding. Patient appeared very weak and denies any active GI symptoms. Pertinent negative GI symptoms: Patient denies fever, sick contacts, recent travel, nausea, vomiting, diarrhea, abdominal pain, loss of appetite, early satiety or unintentional weight loss. No history of hematemesis, melena or hematochezia. Patient reports regular bowel movements. Review of Systems: GI: as stated above CVS: No chest pain, No palpitations, No leg swelling. RS: No Shortness of breath, No Wheezing, no cough EDI CONSULTANT: No dizziness, No motor weakness, No sensory problems Hematology: No bruising, No gum bleeding, Musculoskeletal: No joint pain, ambulating well. Skin: No rash : No hematuria, No burning sensation of the urine ENT: No ear discharge/ pain, No dysphagia. Eyes: No photophobia. Jaundice Home medications: reviewed. Antithrombotic agents - Xarelto on hold Medical h/o: As above. Surgical h/o: appendetoNone on abdomen. Social h/o: Alcohol - denies , smoking none, IVDA/ drugs -- Zenon . Family h/o of GI cancers - None Prior Endoscopies: none in past. Prior GI evaluations: none Exam: Vitals: reviewed General: Alert and oriented x 2, not in distress HEENT: NO pallor, no icterus. Normal oropharynx, NO cervical lymph nodes. Chest: symmetric with bilateral clear air entry, CVS: S1, S2 heard, normal, no murmurs . Abdomen: non-distended, no surgical scars, soft, non-tender, no palpable masses, normal bowel sounds heard. Rectal exam: Patient refused Extremities: no pedal edema, pulses palpable. EDI CONSULTANT: no focal motor or sensory deficits. Moves all extremities Skin: no rash. Labs: reviewed. Impression: - Gradual drop in hemoglobin noted in patient with multiple Comobidites, on multiple anti- coagulation, prior EGD and Colonoscopy- no focal bleeding lesions noted.-- DDx- Stress gastritis vs AVM. In view of no overt active external bl eeding, might need to rule out internal bleeding if continued drop in Hemoglobin. Recommendations: - Patient educated about the test results, possible differential diagnoses and All questions answered. - Give intermittent IV PPI doses for now ( atleast 2-3 days and then switch to oral PPI). - Closely monitor Hemoglobin and hematocrits and transfuse as needed. - as there is no overt external bleeding, consider tagged bleeding scan - Patient is educated about the need for thee procedure, indications, risks (bleeding, perforation, infection, hypotension, respiratory depression, allergy, need for endotracheal intubation, surgery, colostomy, cardiac arrest, even ), benefits, limitations (e.g., missing a lesion), and all other alternatives (including no intervention). Patient verbalized understanding but did not want to have colonoscopy. - Recall GI if any change in status Plan of care discussed with patient and primary team. Patient verbalized understanding and agreed with the plan. Vital Signs/I&O Vital Signs Date Time Temp Pulse Resp B/P (MAP) Pulse Ox O2 Delivery O2 Flow Rate FiO2 09/04/19 15:58 97.8 55 20 107/50 99 Room Air 08/30/19 21:33 95 I&O- Last 24 Hours up to 6 AM 09/04/19 06:00 Intake Total 1050 ml Output Total 0 ml Balance 1050 ml Laboratory Data Labs 24H Laboratory Tests 2 09/04/19 07:45: Nucleated Red Blood Cells % (auto) 0.0, Immature Platelet Fraction 13.7H, Anion Gap 6L, Glomerular Filtration Rate 58.2, Calcium Level 8.2L, Magnesium Level 2.0 09/04/19 09:07: Nucleated Red Blood Cells % (auto) 0.3H, Immature Granulocyte % (Auto) 0.6, Neutrophils (%) (Auto) 83.5H, Lymphocytes (%) (Auto) 8.8L, Monocytes (%) (Auto) 5.7H, Eosinophils (%) (Auto) 1.1, Basophils (%) (Auto) 0.3, Neutrophils # (Auto) 5.4, Lymphocytes # (Auto) 0.6L, Monocytes # (Auto) 0.4, Eosinophils # (Auto) 0 .1, Basophils # (Auto) 0.0, Reticulocyte # (auto) 101.2H, Differential Slide Review Report, Peripheral Blood Smear Path Consult PERIPHERAL SMEAR, Percent Reticulocyte Count 4.5H, Reticulocyte Hemoglobin Equivalent 32.4, Total Bilirubin 0.6, Direct Bilirubin 0.3H, Aspartate Amino Transf (AST/SGOT) 25, Alanine Aminotransferase (ALT/SGPT) 16, Alkaline Phosphatase 147H, Lactate Dehydrogenase 162, Total Protein 5.2L, Albumin 1.9L, Albumin/Globulin Ratio 0.58L 09/04/19 09:08: Platelet Count, EDTA Free 142L CBC/BMP Laboratory Tests 09/04/19 07:45 09/04/19 09:07 Allergies Coded Allergies: No Known Allergies (Unverified , 05/10/17) Home Medications Scheduled Ascorbic Acid (Vitamin C) 500 Mg Capsule, 500 MG PO DAILY, (Reported) Aspirin (Aspirin EC) 81 Mg Tablet.dr, 81 MG PO DAILY, (Reported) Bimatoprost (Lumigan) 0.01% 2.5ML Drops, 1 DROP OU QHS, (Reported) Emollient Base (Vanicream) 453 Gm Cream..g., 2 DOSE TOP BID for 30 Days, #1 Ferrous Gluconate (Ferrous Gluconate) 324 Mg Tablet, 324 MG PO DAILY for 30 Days, #30 Fluoxetine Hcl (Fluoxetine HCl) 10 Mg Capsule, 10 MG PO DAILY for 30 Days, #30 Furosemide (Furosemide) 20 Mg Tablet, 40 MG PO DAILY, (Reported) Furosemide (Furosemide) 20 Mg Tablet, 40 MG PO Q2D, (Reported) IN THE EVENING - TAKES 40MG BID ON MONDAY, MONDAY, MONDAY, MONDAY Furosemide (Furosemide) 20 Mg Tablet, 20 MG PO Q2D, (Reported) IN THE EVENING - TAKES 40MG QAM AND 20MG QPM ON MON, MON, MON, AND 40MG BID ON , , MON, MON Garlic (Garlic Oil) 1,000 Mg Capsule, 1,000 MG PO DAILY, (Reported) Glucosamine Sulfate Dipot Chlr (Glucosamine) 1,000 Mg Tablet, 2,000 MG PO DAILY, (Reported) Midodrine HCl (Midodrine HCl) 5 Mg Tablet, 5 MG PO TID, (Reported) Pantoprazole Sodium (Pantoprazole Sodium) 40 Mg Tablet.dr, 40 MG PO DAILY, (Reported) Potassium Chloride (Potassium Chloride) 10 Meq Tab.er.prt, 10 MEQ PO BID, (Reported) Rivaroxaban (Xarelto) 10 Mg Tablet, 10 MG PO QPM, (Reported) Rivaroxaban (Xarelto) 10 Mg Tablet, 10 MG PO DAILY@18 for 30 Days, #30 Simvastatin (Simvastatin) 20 Mg Tablet, 20 MG PO QHS, (Reported) Spironolactone (Spironolactone) 25 Mg Tablet, 25 MG PO DAILY, (Reported) Tamsulosin HCl (Flomax) 0.4 Mg Capsule, 0.4 MG PO DAILY for 30 Days, #30 Scheduled PRN Acetaminophen (Acetaminophen) 325 Mg Tablet, 650 MG PO Q6HP PRN for MILD PAIN or TEMP > 100.4 for 30 Days, #120 Bisacodyl (Dulcolax) 5 Mg Tablet.dr, 5 MG PO DAILY PRN for CONSTIPATION, (Reported) Docusate Sodium (Colace) 100 Mg Capsule, 100 MG PO DAILY PRN for CONSTIPATION, (Reported) Polyethylene Glycol 3350 (Miralax) 119 Gm Powder, 17 GM PO DAILY PRN for CONSTIPATION, (Reported) MICHELE MAURICIO MD Sep 04, 2019 16:20
[2019-09-04 20:16] LABS: HEMATOCRIT 26.9 % (42.0-52.0); HEMOGLOBIN 8.6 g/dl (13.5-17.5)
[2019-09-04] MEDS: SIMVASTATIN 20 MG TAB PO SCH (21:38)
[2019-09-05 04:35] LABS: HEMATOCRIT 26.7 % (42.0-52.0); HEMOGLOBIN 8.4 g/dl (13.5-17.5)
[2019-09-05] MEDS: PANTOPRAZOLE 40MG INJ (PROTONIX) (C9113) IV SCH ×2 (05:55→17:06)
[2019-09-05 06:43] VITALS: BP_SYST 100; BP_SYST 145; BP_DIAS 81
[2019-09-05 07:22] LABS: BASO % 0.4 % (0.0-1.0); EOS # 0.1 10^3/uL (0.0-0.5); EOS % 1.6 % (0.0-3.0); HEMATOCRIT 26.6 % (42.0-52.0); HEMOGLOBIN 8.5 g/dl (13.5-17.5); LYMPH # 0.5 10^3/uL (1.5-5.0); LYMPH % 8.3 % (24.0-44.0); MEAN CORPUSCULAR HEMOGLOBIN 29.9 pg (27.0-33.0); MEAN CORPUSCULAR VOLUME 93.7 fl (80.0-96.0); MONO # 0.4 10^3/uL (0.0-0.8); MONO % 7.1 % (0.0-5.0); NEUTROPHILS # 4.5 10^3/uL (1.5-8.5); NEUTROPHILS % 82.1 % (36.0-66.0); PLATELET COUNT, AUTOMATED 149 10^3/uL (150-450); RED BLOOD COUNT 2.84 10^6/uL (4.30-6.10); WHITE BLOOD COUNT 5.5 10^3/uL (4.0-10.0)
[2019-09-05 07:51] LABS: CALCIUM LEVEL 8.4 MG/DL (8.8-10.2); CREATININE FOR GFR 1.31 MG/DL (0.70-1.30); GLOMERULAR FILTRATION RATE 55.1 (>35); POTASSIUM SERUM 4.2 MEQ/L (3.5-5.1)
[2019-09-05] MEDS: MIDODRINE 2.5 MG TAB PO SCH ×3 (08:00→17:06)
[2019-09-05] MEDS: LACTOBACILLUS ACIDOPHILUS CAP (BACID) PO SCH ×3 (08:00→17:06)
[2019-09-05] MEDS: FUROSEMIDE 40 MG TAB PO SCH (09:00)
[2019-09-05] MEDS: SPIRONOLACTONE 25 MG TAB PO SCH (09:00)
[2019-09-05] MEDS: ASCORBIC ACID 500 MG TAB PO SCH (09:00)
[2019-09-05] MEDS: FERROUS GLUCONATE 324 MG TAB PO SCH (09:00)
[2019-09-05] MEDS: TAMSULOSIN 0.4 MG CAP PO SCH ×2 (09:00→20:11)
[2019-09-05] MEDS: FLUoxetine 10 MG CAP PO SCH (09:00)
[2019-09-05] MEDS: VANICREAM MOISTURIZING SKIN CREAM 113GM TUBE TOP SCH ×2 (09:00→20:11)
--- NOTE | 2019-09-05 13:57 | IPNPDOC ---
Text Note Date of Service The patient was seen on 09/05/19. NOTE Subjective: Patient says wants to go home and then i had to remind him that he will need to go to rehab before going home. He was a little confused this am and refused edications and needed to be reoriented. then was ok. i explained that he will probably be able to go tomorrow. patient does not offer any complaints today. Says did not have any diarrhea or melena. No abdominal pain, nausea or vomiting. Objective: Vitals: see below GENERAL: No distress, sitting up eating breakfast HEENT: Normocephalic, atraumatic, MMM NECK: Supple, no JVD CARDIOVASCULAR EXAMINATION: Irregularly irregular RESPIRATORY EXAMINATION: CTAB ABDOMINAL EXAMINATION: Normoactive bowel sounds, soft, non distended, non tender with no rebound or guarding. EXTREMITIES: Range of motion intact, stable lower extremity +1 pitting edema, R>L, otherwise WWP with 2+ DP pulses bilaterally SKIN: No rash Neuro: AOx2 with orientation to self and that this is a hospital, requesting to go home, strength 4/5 in all four extremities Labs: reviewed as below ASSESSMENT: 89-year-old man with multiple comorbidities presents with abdominal pain and imaging showing distended gallbladder with stone in the gallbladder neck s/p lap chol by Dr Galeana + empiric zosyn then developed C. difficile colitis, so was on PO vancomycin which he has finished the course. hospital with course further c/b severe deconditioning pending STR placement. Now he has again dropped his hh . Had received 2 units on 08/30 then responded appropriately again dropped on 09/03 now getting more transfusion. Possible Upper GIB gas troenterology has been consulted Acute on chronic anemia: most probably Upper GIB bleed. could be stress ulceration. HH responded appropriately to transfusion. will continue to monitor Iron panel noted no sig deficiency, vit B12 and Folate normal stool occult blood pending no bowel movemnts in last 2 says. will continue pantoprazole. Gi evaluation appreciated. Gangrenous Cholecystitis due to cholelithiasis. Status post lap scopic cholecystectomy, was found to have an gangrenous gallbladder, postop day 14 s/p GARY drain removal Zosyn was discontinued on 08/22/19 DULCE Improved restarted lasix and spironolactone BUN better today Chronic diastolic CHF: s/p open heart valve repair, presumably from previous records its tricuspid valve? BUN rise was due to GIB. resume diuretics but will hold xarrelto COPD Stable, continue home meds, supplemental oxygen to maintain O2 sats of 90%. A. fib: rate controlled hh dropped again will hold xarelto. Hyperlipidemia Continue simvastatin. Severe pulmonary hypertension. Noted from echo in 2017, right ventricular systolic pressure 70. monitor Right>left leg edema Doppler ultrasound negative for DVT C. difficile colitis finished PO vancomycin course Depression Fluoxetine Deconditioning continue daily PT/OT with plan for STR with ongoing care management planning Delirium: Resolved Frequent reorientation Dispo: to [facility] in next 24 hours if hh stable VS,Fishbone, I+O VS, Fishbone, I+O Laboratory Tests 09/04/19 20:05 09/05/19 04:23 09/05/19 07:08 Vital Signs Date Time Temp Pulse Resp B/P (MAP) Pulse Ox O2 Delivery O2 Flow Rate FiO2 09/05/19 06:43 96.8 68 20 100/81 (87) 96 Room Air 08/30/19 21:33 95 I&O- Last 24 Hours up to 6 AM 09/05/19 06:00 Intake Total 2100 ml Balance 2100 ml JR VELIZ MD Sep 05, 2019 13:57
[2019-09-05 14:09] VITALS: BP 124/99
[2019-09-05 15:08] LABS: HEMATOCRIT 29.9 % (42.0-52.0); HEMOGLOBIN 9.4 g/dl (13.5-17.5)
[2019-09-05] MEDS: SIMVASTATIN 20 MG TAB PO SCH (20:11)
[2019-09-05 20:29] LABS: HEMATOCRIT 27.4 % (42.0-52.0); HEMOGLOBIN 8.6 g/dl (13.5-17.5)
[2019-09-05 22:00] VITALS: BP 111/48
[2019-09-06] MEDS: PANTOPRAZOLE 40MG INJ (PROTONIX) (C9113) IV SCH (05:51)
[2019-09-06 06:00] VITALS: BP 113/47
[2019-09-06 06:07] LABS: BASO % 0.5 % (0.0-1.0); EOS # 0.1 10^3/uL (0.0-0.5); EOS % 3.3 % (0.0-3.0); HEMATOCRIT 26.7 % (42.0-52.0); HEMOGLOBIN 8.2 g/dl (13.5-17.5); LYMPH # 0.6 10^3/uL (1.5-5.0); LYMPH % 13.6 % (24.0-44.0); MEAN CORPUSCULAR HEMOGLOBIN 30.1 pg (27.0-33.0); MEAN CORPUSCULAR HGB CONC 30.7 g/dl (32.0-36.5); MEAN CORPUSCULAR VOLUME 98.2 fl (80.0-96.0); MONO # 0.3 10^3/uL (0.0-0.8); MONO % 7.7 % (0.0-5.0); NEUTROPHILS # 3.2 10^3/uL (1.5-8.5); NEUTROPHILS % 74.2 % (36.0-66.0); PLATELET COUNT, AUTOMATED 138 10^3/uL (150-450); RED BLOOD COUNT 2.72 10^6/uL (4.30-6.10); WHITE BLOOD COUNT 4.3 10^3/uL (4.0-10.0)
[2019-09-06 06:27] LABS: CREATININE FOR GFR 1.36 MG/DL (0.70-1.30); GLOMERULAR FILTRATION RATE 52.8 (>35); POTASSIUM SERUM 4.1 MEQ/L (3.5-5.1)
[2019-09-06] MEDS ORDERED: PANT40TA3 PO (08:39)
[2019-09-06] MEDS: FLUoxetine 10 MG CAP PO SCH (08:41)
[2019-09-06] MEDS: LACTOBACILLUS ACIDOPHILUS CAP (BACID) PO SCH ×2 (08:41→12:05)
[2019-09-06] MEDS: FERROUS GLUCONATE 324 MG TAB PO SCH (08:41)
[2019-09-06] MEDS: ASCORBIC ACID 500 MG TAB PO SCH (08:41)
[2019-09-06] MEDS: MIDODRINE 2.5 MG TAB PO SCH ×2 (08:41→12:05)
[2019-09-06] MEDS: TAMSULOSIN 0.4 MG CAP PO SCH (08:41)
[2019-09-06] MEDS: VANICREAM MOISTURIZING SKIN CREAM 113GM TUBE TOP SCH (08:42)
--- NOTE | 2019-09-06 09:04 | DS.PDOC ---
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 Severe pulmonary hypertension with right hear failure COPD Depression generalized deconditioning and weakness hyperlipidemia acute delirium resolved COMPLICATIONS/CHIEF COMPLAINT: Afib Chf Cva Hld Htn Renal Failure Acute Or Chroni. HISTORY OF PRESENT ILLNESS: See history and physical HOSPITAL COURSE: Labs: reviewed as below ASSESSMENT: 89-year-old man with multiple comorbidities presents with abdominal pain and imaging showing distended gallbladder with stone in the gallbladder neck s/p lap chol by Dr Galeana + empiric zosyn then developed C. difficile colitis, so was on PO vancomycin which he has finished the course. hospital with course further c/b severe deconditioning pending STR placement. Now he has again dropped his hh . Had received 2 units on 08/30 then responded appropriately again dropped on 09/03 now getting more transfusion. Possible Upper GIB gastroenterology has been consulted Upper GIB most likely from stress gastritis or AVMs Now hh stable for last 24 hours and no chayito. HH responded appropriately to transfusion. will continue to monitor Iron panel noted no sig deficiency, vit B12 and Folate normal has been seen by GI dr junior continue on pantoprazole bid even with the recent c diff infection due to the GIB. will continue to hold xarelto for 2 to 3 weeks. Acute blood loss anemia due to GIB now HH stable Acute on chronic anemia: from Upper GIB bleed. Gangrenous Cholecystitis due to cholelithiasis. Status post lap scopic cholecystectomy, was found to have an gangrenous gallbladder, postop day 14 s/p GARY drain removal Zosyn was discontinued on 08/22/19 DULCE Improving however will poor oral intake so have not restarted his home lasix and spironolactone Diuretics to be restarted if the patient starts retaining fluids at the discreti on of the MD in [place] Chronic diastolic CHF s/p open heart valve repair, presumably from previous records its tricuspid valve? at present appears euvolemic, poor ora intake so diurtics have not been restarted. COPD Stable, continue home meds Chronic A. fib: rate controlled with recent upper GIB so xarelto has been stopped can be resumed in 3 weeks if no further bleeding episodes ASA has been continued. Hyperlipidemia Continue simvastatin. Severe pulmonary hypertension. Noted from echo in 2017, right ventricular systolic pressure 70. monitor Right>left leg edema Doppler ultrasound negative for DVT now resolved. C. difficile colitis finished PO vancomycin course Depression Fluoxetine Deconditioning continue daily PT/OT as per STR. Delirium: Resolved Frequent reorientation DISCHARGE MEDICATIONS: Please see below. ALLERGIES: Please see below. PHYSICAL EXAMINATION ON DISCHARGE: VITAL SIGNS: Please see below. GENERAL: No distress, sitting up eating breakfast HEENT: Normocephalic, atraumatic, MMM NECK: Supple, no JVD CARDIOVASCULAR EXAMINATION: Irregularly irregular RESPIRATORY EXAMINATION: CTAB ABDOMINAL EXAMINATION: Normoactive bowel sounds, soft, non distended, non tender with no rebound or guarding. EXTREMITIES: Range of motion intact, stable lower extremity +1 pitting edema, R>L, otherwise WWP with 2+ DP pulses bilaterally SKIN: No rash Neuro: AOx2 with orientation to self and that this is a hospital, requesting to go home, strength 4/5 in all four extremities LABORATORY DATA: Please see below. ACTIVITY: [As tolerated]. DIET: As tolerated DISCHARGE PLAN: [facility]SV DISPOSITION: . DISCHARGE INSTRUCTIONS: Follow up with MD in [place] ITEMS TO FOLLOWUP ON ON OUTPATIENT: CBC in 3 days. DISCHARGE CONDITION: [Stable]. TIME SPENT ON DISCHARGE: 35 minutes. Vital Signs/I&Os Vital Signs Date Time Temp Pulse Resp B/P (MAP) Pulse Ox O2 Delivery O2 Flow Rate FiO2 09/06/19 06:00 97.0 57 18 113/47 (69) 95 Room Air I&O- Last 24 Hours up to 6 AM 09/06/19 06:00 Intake Total 920 ml Output Total 575 ml Balance 345 ml Laboratory Data Labs 24H Laboratory Tests 2 09/06/19 05:26: Immature Granulocyte % (Auto) 0.7, Neutrophils (%) (Auto) 74.2H, Lymphocytes (%) (Auto) 13.6L, Monocytes (%) (Auto) 7.7H, Eosinophils (%) (Auto) 3.3H, Basophils (%) (Auto) 0.5, Neutrophils # (Auto) 3.2, Lymphocytes # (Auto) 0.6L, Monocytes # (Auto) 0.3, Eosinophils # (Auto) 0.1, Basophils # (Auto) 0.0, Nucleated Red Blood Cells % (auto) 0.0, Anion Gap 4L, Glomerular Filtration Rate 52.8, Calcium Level 8.0L CBC/BMP Laboratory Tests 09/05/19 14:59 09/05/19 20:11 09/06/19 05:26 Microbiology Microbiology 09/05/19 Stool Occult Blood (ALCIRA) - Final, Complete Discharge Medications Scheduled Ascorbic Acid (Vitamin C) 500 Mg Capsule, 500 MG PO DAILY, (Reported) Aspirin (Aspirin EC) 81 Mg Tablet.dr, 81 MG PO DAILY, (Reported) Bimatoprost (Lumigan) 0.01% 2.5ML Drops, 1 DROP OU QHS, (Reported) Emollient Base (Vanicream) 453 Gm Cream..g., 2 DOSE TOP BID Ferrous Gluconate (Ferrous Gluconate) 324 Mg Tablet, 324 MG PO DAILY Fluoxetine Hcl (Fluoxetine HCl) 10 Mg Capsule, 10 MG PO DAILY Garlic (Garlic Oil) 1,000 Mg Capsule, 1,000 MG PO DAILY, (Reported) Glucosamine Sulfate Dipot Chlr (Glucosamine) 1,000 Mg Tablet, 2,000 MG PO DAILY, (Reported) Midodrine HCl (Midodrine HCl) 5 Mg Tablet, 5 MG PO TID, (Reported) Pantoprazole Sodium (Pantoprazole Sodium) 40 Mg Tablet.dr, 40 MG PO DAILY, (Reported) Pantoprazole Sodium (Pantoprazole Sodium) 40 Mg Tablet.dr, 40 MG PO BID Simvastatin (Simvastatin) 20 Mg Tablet, 20 MG PO QHS, (Reported) Tamsulosin HCl (Flomax) 0.4 Mg Capsule, 0.4 MG PO DAILY Scheduled PRN Acetaminophen (Acetaminophen) 325 Mg Tablet, 650 MG PO Q6HP PRN for MILD PAIN or TEMP > 100.4 Bisacodyl (Dulcolax) 5 Mg Tablet.dr, 5 MG PO DAILY PRN for CONSTIPATION, (Reported) Docusate Sodium (Colace) 100 Mg Capsule, 100 MG PO DAILY PRN for CONSTIPATION, (Reported) Polyethylene Glycol 3350 (Miralax) 119 Gm Powder, 17 GM PO DAILY PRN for CONSTIPATION, (Reported) Allergies Coded Allergies: No Known Allergies (Unverified , 05/10/17) JR VELIZ MD Sep 06, 2019 08:59
== END 2019-09-06 12:53 | DRG 418 ==
LOC: M ED 12:54 → EDBD 12:54 → M ED INP 18:50 → M PCU 21:49 → M MSPAV 08-16 14:15 → M ICU 08-19 03:30 → M PCU 08-19 17:17 → M MS5PR 08-24 20:13
PROVIDERS: ADMIT Internal Medicine; ATTEND Internal Medicine Nephrology
PROC: 0FT44ZZ Resection of Gallbladder, Percutaneous Endoscopic Approach (ICD-10-PCS; principal; 2019-08-17 13:21)
PROC: 30233N1 Transfusion of Nonautologous Red Blood Cells into Peripheral Vein, Percutaneous Approach (ICD-10-PCS; 2019-08-30)
DX: K80.00 Calculus of gallbladder with acute cholecystitis without obstruction (principal); A04.72 Enterocolitis due to Clostridium difficile, not specified as recurrent; N17.9 Acute kidney failure, unspecified; K92.2 Gastrointestinal hemorrhage, unspecified; I48.20 Chronic atrial fibrillation, unspecified; D62 Acute posthemorrhagic anemia; I50.32 Chronic diastolic (congestive) heart failure; N18.9 Chronic kidney disease, unspecified; J44.9 Chronic obstructive pulmonary disease, unspecified; E78.5 Hyperlipidemia, unspecified; I27.20 Pulmonary hypertension, unspecified; F32.9 Major depressive disorder, single episode, unspecified; Z79.82 Long term (current) use of aspirin; Z79.899 Other long term (current) drug therapy; Z86.73 Personal history of transient ischemic attack (TIA), and cerebral infarction without residual deficits; Z87.891 Personal history of nicotine dependence; Z79.01 Long term (current) use of anticoagulants; I25.10 Atherosclerotic heart disease of native coronary artery without angina pectoris; Z95.1 Presence of aortocoronary bypass graft; R41.0 Disorientation, unspecified

== ENCOUNTER → 2019-09-09 | Outpatient (REF) | payer MEDICARE ==
[~2019-09-09] MED LIST changes: +ACET1TAB55 PO; +BIMA01SOL OU; +FERR32TA PO; +FLOM0.4C39 PO; +FLUO10CA15 PO; +FURO20TA2 PO; +GARL1000 PO; +GNP1000T11 PO; +PANT-23 PO; +POTA10TA16 PO; +POTA10TA17 PO; -SIMV20TA2 PO; +SIMV20TA22 PO; +VANI1CRE5 TOP; +VITA500C24 PO
--- NOTE | 2019-09-12 09:15 | HOLTMON ---
[facility] Test Date: 2019-09-09 Pat Name: CAROLYNE MOSLEY Department: Room: - Gender: Male Cotton Baler: ALVAREZ VERA : 1930 Requested By: POLLY Dejesus Order Number: [id number] Reading MD: Baylee Reynaga Interpretive Statements There is a lot of artifact the diary did not come back with the holter.The leadoff some time in the night (per aide) put back on at 6 am the next day. Slow AFIB THROUGHOUT, WITH PROBABLE VENTRICULAR ESCAPE (IDIOVENT PACER) SEEN. lEFT MEDDAGE WITH DR UMAÑA. SPOKE WITH DR MIGUEL. IT WAS THEN LEARNED THAT PT IS WITH HOSPICE AND PACEMAKER NOT APPROPRIATE Electronically Signed on 09-12-2019 9:15:10 EST by Baylee Reynaga
== END ==
LOC: M EKG 13:22 → EDSTATUS 11-19 13:27 → M EKG 11-19 13:27
PROVIDERS: ATTEND Internal Medicine
DX: I95.9 Hypotension, unspecified (principal)

== ENCOUNTER → 2019-09-11 | Outpatient (REF) ==
[~2019-09-11] MED LIST changes: -FLUO10CA15 PO; +FLUO10CA8 PO; +SIMV20TA2 PO; -SIMV20TA22 PO
[2019-09-11 09:51] LABS: HEMATOCRIT 29.9 % (42.0-52.0); HEMOGLOBIN 8.9 g/dl (13.5-17.5); MEAN CORPUSCULAR HEMOGLOBIN 30.3 pg (27.0-33.0); MEAN CORPUSCULAR HGB CONC 29.8 g/dl (32.0-36.5); MEAN CORPUSCULAR VOLUME 101.7 fl (80.0-96.0); PLATELET COUNT, AUTOMATED 148 10^3/uL (150-450); RED BLOOD COUNT 2.94 10^6/uL (4.30-6.10); WHITE BLOOD COUNT 5.3 10^3/uL (4.0-10.0)
[2019-09-11 10:09] LABS: CALCIUM LEVEL 8.4 MG/DL (8.8-10.2); CREATININE FOR GFR 1.63 MG/DL (0.70-1.30); GLOMERULAR FILTRATION RATE 42.8 (>35); POTASSIUM SERUM 4.7 MEQ/L (3.5-5.1)
== END ==
PROVIDERS: ATTEND Internal Medicine
DX: D64.9 Anemia, unspecified (principal)